=== PATIENT | female | born 1950 | race Caucasian/White ===

== ENCOUNTER → 2016-12-21 | Outpatient (REF) | payer MEDICARE, OTHER ==
[~2016-12-21] MED LIST: /AMIO20TA OR; /GLYB5TA OR; ACET65TA OR; ACTO45TA OR; ALPR0.25 OR; AMOX875T19 PO; ASPI325T OR; ASPI81TA83 OR; ATEN25TA OR; CALCCHW12 OR; COLA100C2 OR; DIOV160T5 OR; DOCUSATE; F; FAMO20TA2 OR; FERR324T5 OR; FISH1000 OR; FLON0.05; FLON0.05 INH; FOLI1TAB OR; GARAMYCIN TOP; GLUC1000 OR; GLUC500T OR; GLUC5TAB PO; ISOS30BRAN OR; JANUVIA PO; LASI40TA MT; LASI80TA OR; OMEP20TA7 OR; PERC5TAB8 OR; PERC7.5T8 OR; PLAV75TA2 OR; SENNA; SIMV80TA OR; SYNT50TA OR; TRAM50TA2 OR; ULTR50TA PO; VITA100C7 OR; ZOFR8TAB OR; ZOFR8TAB PO; ferrous gluconate PO
[2016-12-21 11:01] LABS: MEAN CORPUSCULAR HEMOGLOBIN 31.4 pg (27.0-33.0); MEAN CORPUSCULAR HGB CONC 33.2 g/dl (32.0-36.5); MEAN CORPUSCULAR VOLUME 94.8 fl (80.0-96.0); RED CELL DISTRIBUTION WIDTH 13.3 % (11.5-14.5); WHITE BLOOD COUNT 6.6 K/mm3 (4.0-10.0)
[2016-12-21 11:18] LABS: ALBUMIN 3.6 GM/DL (3.2-5.2); ALBUMIN/GLOBULIN RATIO 1.24 (1.00-1.93); BILIRUBIN,TOTAL 0.4 MG/DL (0.2-1.0); CALCIUM LEVEL 8.7 MG/DL (8.8-10.2); CREATININE FOR GFR 1.43 MG/DL (0.55-1.02); GLOMERULAR FILTRATION RATE 39.2 (>45); POTASSIUM SERUM 4.8 MEQ/L (3.5-5.1); TOTAL PROTEIN 6.5 GM/DL (6.4-8.2)
== END ==
LOC: M LABDRAW1 10:46
PROVIDERS: ATTEND Internal Medicine
DX: E11.9 Type 2 diabetes mellitus without complications (principal); D63.1 Anemia in chronic kidney disease; E78.00 Pure hypercholesterolemia, unspecified; N18.9 Chronic kidney disease, unspecified

== ENCOUNTER → 2016-12-29 | Outpatient (REF) | payer MEDICARE, OTHER ==
[2017-01-01 00:06] LABS: Lyme Disease IgG/IgM Antibodie <0.91 ISR (0.00-0.90); Lyme Disease IgM Ab Quantitati <0.80 index (0.00-0.79)
== END ==
LOC: M SFHCPLAZ 11:15
PROVIDERS: ATTEND Internal Medicine
DX: R70.0 Elevated erythrocyte sedimentation rate (principal); M25.511 Pain in right shoulder; M25.512 Pain in left shoulder
CPT/HCPCS: 36415; 85652; 86140; 86200; 86431; 86617; G0463

== ENCOUNTER → 2017-01-11 | Outpatient (REF) | payer MEDICARE, OTHER | LOC: M SFHCPLAZ 10:33 | PROVIDERS: ATTEND Internal Medicine | DX: R70.0 Elevated erythrocyte sedimentation rate (principal) ==

== ENCOUNTER → 2017-02-01 | Outpatient (REF) | payer MEDICARE, OTHER | LOC: M SFHCPLAZ 10:54 | PROVIDERS: ATTEND Internal Medicine | DX: R70.0 Elevated erythrocyte sedimentation rate (principal) ==

== ENCOUNTER → 2017-02-22 | Outpatient (REF) | payer MEDICARE, OTHER | LOC: M SFHCPLAZ 09:09 | PROVIDERS: ATTEND Internal Medicine | DX: M25.511 Pain in right shoulder (principal) ==

== ENCOUNTER → 2017-03-21 | Outpatient (REF) | payer MEDICARE, OTHER | LOC: M LAB REF 17:36 | PROVIDERS: ATTEND Advanced Practice Midwife | DX: Z12.4 Encounter for screening for malignant neoplasm of cervix (principal) ==

== ENCOUNTER → 2017-04-04 | Outpatient (REF) | payer MEDICARE, OTHER ==
[2017-04-04 11:21] LABS: MEAN CORPUSCULAR HGB CONC 33.2 g/dl (32.0-36.5); MEAN CORPUSCULAR VOLUME 96.5 fl (80.0-96.0); RED CELL DISTRIBUTION WIDTH 14.6 % (11.5-14.5); WHITE BLOOD COUNT 6.9 K/mm3 (4.0-10.0)
[2017-04-04 11:51] LABS: ALBUMIN 3.5 GM/DL (3.2-5.2); ALBUMIN/GLOBULIN RATIO 1.17 (1.00-1.93); ALKALINE PHOSPHATASE 45 U/L (45-117); ALT/SGPT 21 U/L (12-78); ANION GAP 9 MEQ/L (8-16); AST/SGOT 12 U/L (15-37); BILIRUBIN,TOTAL 0.5 MG/DL (0.2-1.0); BLOOD UREA NITROGEN 19 MG/DL (7-18); CALCIUM LEVEL 9.3 MG/DL (8.8-10.2); CARBON DIOXIDE LEVEL 27 MEQ/L (21-32); CHLORIDE LEVEL 104 MEQ/L (98-107); CREATININE FOR GFR 1.24 MG/DL (0.55-1.02); GLOMERULAR FILTRATION RATE 46.2 (>45); GLUCOSE, FASTING 91 MG/DL (80-110); POTASSIUM SERUM 4.6 MEQ/L (3.5-5.1); SODIUM LEVEL 140 MEQ/L (136-145); TOTAL PROTEIN 6.5 GM/DL (6.4-8.2)
[2017-04-07 10:33] LABS: ALBUMIN 3.96 GM/DL (3.29-5.55); ALBUMIN % 60.9 % (55.8-66.1); GAMMA GLOBULIN % 9.5 % (11.1-18.8)
== END ==
LOC: M SFHCPLAZ 09:22
PROVIDERS: ATTEND Internal Medicine
DX: R70.0 Elevated erythrocyte sedimentation rate (principal); E11.3299 Type 2 diabetes mellitus with mild nonproliferative diabetic retinopathy without macular edema, unspecified eye

== ENCOUNTER → 2017-05-13 | Outpatient (CLI) | payer MEDICARE, OTHER ==
--- NOTE | 2017-05-19 13:32 | SLEEPHOME ---
DATE OF PROCEDURE: 05/13/2017 ORDERED BY: Jane Anguiano NP Diagnostic home sleep testing was performed due to concern for the obstructive sleep apnea syndrome in this patient with a history of snoring, abnormal nocturnal oximetry and morning headaches. For testing, a NOX-T3 respiratory monitoring device was used. Continuous record was made of pulse, oxygen saturation, airflow, chest and abdominal strain, and body position. 10 hours and 59 minutes of data were reviewed. There were 9 hours and 21 minutes marked as time in bed. During the interval marked time in bed, there were 636 respiratory events identified of 10 seconds in duration or greater for a respiratory event index of 67.9. The events were mixed in character, both obstructive and central events when combining mixed apneas with central apneas were greater than 50% of the events. The patient's baseline pulse rate was 55 beats per minute. Pulse rate ranged 36-72. Baseline saturation 94%. Lowest oxygen saturation 75%. Testing was performed in both the supine and non-supine positions. IMPRESSION: Abnormal home sleep testing with repetitive respiratory events and oxygen desaturations to 75% is consistent with the sleep apnea syndrome. RECOMMENDATION: Given the frequency of central events, complex apnea suspected. The patient should therefore be referred for a formal in-laboratory pressure titration. In the interim, alcohol and sedative avoidance should be practiced and caution exercised during the operation of motor vehicles.
== END ==
LOC: M SLEEP HO 09:43
PROVIDERS: ATTEND Nurse Practitioner Adult Health
DX: G47.30 Sleep apnea, unspecified (principal)

== ENCOUNTER → 2017-06-01 | Outpatient (CLI) | payer MEDICARE, OTHER ==
--- NOTE | 2017-06-05 14:38 | SLEEPCENT ---
DATE OF STUDY: 06/01/2017 ORDERED BY: Jane Anguiano NP Nocturnal polysomnography was performed for the titration of pressure therapy in this patient with a clinical diagnosis of obstructive sleep apnea syndrome supported by home testing revealing a respiratory event index of 67.9. For testing, the patient was fit with a [employer] Sim[employer] full face mask of small size. 4 cm of water pressure were applied to the circuit and the lights were extinguished. 7 hours and 44 minutes of data were reviewed. There were 362 minutes of sleep identified. Sleep latency was prolonged at 23 minutes. Rapid eye movement (REM) latency was short at 75 minutes. Sleep architecture was good with three REM periods. Overall sleep efficiency was 78.9%. The patient's EKG showed a sinus rhythm with an average heart rate of 50 beats per minute. EEG showed fairly normal waveforms for awake and sleep. Respiratory events were fully palliated with CPAP at a pressure of +11. Remaining measures of sleep physiology were normal. IMPRESSION: Obstructive sleep apnea syndrome (G47.33). RECOMMENDATION: Nightly use of pressure therapy, 11 cm of water.
== END ==
LOC: M SLEEP 19:25
PROVIDERS: ATTEND Nurse Practitioner Adult Health
DX: G47.33 Obstructive sleep apnea (adult) (pediatric) (principal)

== ENCOUNTER → 2017-09-07 | Outpatient (CLI) | payer MEDICARE, OTHER ==
--- NOTE | 2017-09-07 12:01 | REPMRS ---
Patient History The patient states she has not had a clinical breast exam in over a year. Patient is postmenopausal. No known family history of cancer. Took hormonal contraceptives for 10 years. Took unspecified hormones for 10 years. Digital Woman Screen Mammo: September 07, 2017 - Exam #: [id number] Bilateral CC and MLO view(s) were taken. Technologist: Gabriela Canchola Technologist Prior study comparison: August 21, 2015, digital woman screen mammo performed at [facility]. August 23, 2014, bilateral bilat screen digital mammo, performed at [facility] ([facility]). July 20, 2013, bilateral bilat screen digital mammo, performed at [facility] ([facility]). FINDINGS: There are scattered fibroglandular densities. There has been no change in the appearance of the mammogram from the prior studies. There is a moderate amount of residual fibroglandular tissue which is fairly symmetric. There is no interval development of dominant mass, architectural distortion, or clustered microcalcification suggestive of malignancy. Large coarse benign appearing calcifications are present. No significant changes when compared with prior studies. ASSESSMENT: BI-RADS/ACR category 2 mammogram. Benign finding(s). Recommendation Routine screening mammogram in 1 year (for women over age 40). This mammogram was interpreted with the aid of an FDA-approved computer-aided dectection system. A. Negative x-ray reports should not delay biopsy if a dominant or clinically suspicious mass is present. B. Four to eight percent of cancers are not identified by mammography. C. Adenosis and dense breast may obscure an underlying neoplasm. Electronically Signed By: Jefry El MD 09/07/17 [id number]
== END ==
LOC: M WHC 10:44
PROVIDERS: ATTEND Internal Medicine
DX: Z12.31 Encounter for screening mammogram for malignant neoplasm of breast (principal); Z78.0 Asymptomatic menopausal state; Z92.0 Personal history of contraception

== ENCOUNTER → 2017-12-06 | Outpatient (REF) | payer MEDICARE, OTHER ==
[2017-12-06 11:09] LABS: HEMATOCRIT 25.2 % (36.0-47.0); HEMOGLOBIN 8.2 g/dl (12.0-16.0); MEAN CORPUSCULAR HEMOGLOBIN 29.4 pg (27.0-33.0); MEAN CORPUSCULAR HGB CONC 32.5 g/dl (32.0-36.5); MEAN CORPUSCULAR VOLUME 90.3 fl (80.0-96.0); PLATELET COUNT, AUTOMATED 418 10^3/uL (150-450); RED BLOOD COUNT 2.79 10^6/uL (4.00-5.40); RED CELL DISTRIBUTION WIDTH 14.1 % (11.5-14.5); WHITE BLOOD COUNT 8.1 10^3/uL (4.0-10.0)
[2017-12-06 11:24] LABS: ALBUMIN 3.3 GM/DL (3.2-5.2); ALBUMIN/GLOBULIN RATIO 0.97 (1.00-1.93); ALKALINE PHOSPHATASE 83 U/L (45-117); ALT/SGPT 21 U/L (12-78); ANION GAP 10 MEQ/L (8-16); AST/SGOT 11 U/L (7-37); BILIRUBIN,TOTAL 0.3 MG/DL (0.2-1.0); BLOOD UREA NITROGEN 24 MG/DL (7-18); CALCIUM LEVEL 8.9 MG/DL (8.8-10.2); CARBON DIOXIDE LEVEL 26 MEQ/L (21-32); CHLORIDE LEVEL 104 MEQ/L (98-107); CHOLESTEROL LEVEL 140 MG/DL (<200); CHOLESTEROL RISK RATIO 5.384 (<5); CREATININE FOR GFR 1.43 MG/DL (0.55-1.30); GLOMERULAR FILTRATION RATE 39.1 (>45); GLUCOSE, FASTING 190 MG/DL (70-100); HDL CHOLESTEROL 26 MG/DL (>40); LDL CHOLESTEROL 80.4 MG/DL (<100); MAGNESIUM LEVEL 1.7 MG/DL (1.8-2.4); NON-HDL-C 114 MG/DL; POTASSIUM SERUM 4.8 MEQ/L (3.5-5.1); SODIUM LEVEL 140 MEQ/L (136-145); TOTAL PROTEIN 6.7 GM/DL (6.4-8.2); TRIGLYCERIDES LEVEL 168 MG/DL (<150)
[2017-12-06 11:31] LABS: ESTIMATED AVERAGE GLUCOSE 140 MG/DL (60-110); HEMOGLOBIN A1c 6.5 %
[2017-12-06 11:33] LABS: MAU/CREAT RATIO 73.5 MCG/MG (0.0-30.0)
[2017-12-06 11:47] LABS: PTH INTACT 97.4 PG/ML (18.5-88.0)
== END ==
LOC: M SFHCPLAZ 08:46
DX: E11.3299 Type 2 diabetes mellitus with mild nonproliferative diabetic retinopathy without macular edema, unspecified eye (principal); N18.3 Chronic kidney disease, stage 3 (moderate); E78.00 Pure hypercholesterolemia, unspecified; I12.9 Hypertensive chronic kidney disease with stage 1 through stage 4 chronic kidney disease, or unspecified chronic kidney disease; D63.1 Anemia in chronic kidney disease
CPT/HCPCS: 83735

== ENCOUNTER → 2018-02-08 | Outpatient (REF) | payer MEDICARE, OTHER ==
[2018-02-08 12:02] LABS: BASO % 0.3 % (0.0-1.0); EOS # 0.1 10^3/uL (0.0-0.50); EOS % 1.9 % (0.0-3.0); HEMOGLOBIN 9.2 g/dl (12.0-15.5); IMMATURE GRANULOCYTE % 0.3 % (0-3.0); LYMPH # 1.7 10^3/uL (1.5-4.5); LYMPH % 23.2 % (24.0-44.0); MEAN CORPUSCULAR HEMOGLOBIN 30.1 pg (27.0-33.0); MEAN CORPUSCULAR HGB CONC 32.9 g/dl (32.0-36.5); MEAN CORPUSCULAR VOLUME 91.5 fl (80.0-96.0); MONO # 0.6 10^3/uL (0.0-0.8); MONO % 8.4 % (0.0-5.0); NEUTROPHILS # 4.8 10^3/uL (1.8-7.7); NEUTROPHILS % 65.9 % (36.0-66.0); PLATELET COUNT, AUTOMATED 333 10^3/uL (150-450); RED BLOOD COUNT 3.06 10^6/uL (4.00-5.40); WHITE BLOOD COUNT 7.3 10^3/uL (4.0-10.0)
[2018-02-08 12:16] LABS: C REACTIVE PROTEIN QUANTITATIV < 0.30 MG/DL (0.00-0.30)
[2018-02-08 12:16] LABS: RHEUMATOID FACTOR QUANT 10.2 IU/ML (<15.0)
[2018-02-08 12:38] LABS: ERYTHROCYTE SEDIMENTATION RATE 60 mm/hr (0-30)
[2018-02-10 00:09] LABS: ANTINUCLEAR ANTIBODIES DIRECT Negative (Negative); Lyme Disease IgG/IgM Antibodie <0.91 ISR (0.00-0.90); Lyme Disease IgM Ab Quantitati <0.80 index (0.00-0.79)
== END ==
LOC: M LABDRAW1 10:10
DX: M70.61 Trochanteric bursitis, right hip (principal)
CPT/HCPCS: 86140

== ENCOUNTER → 2018-03-23 | Outpatient (REF) | payer MEDICARE, OTHER ==
[2018-03-23 12:36] LABS: ERYTHROCYTE SEDIMENTATION RATE 43 mm/hr (0-30)
== END ==
LOC: M LABDRAW1 11:31
DX: M70.61 Trochanteric bursitis, right hip (principal)
CPT/HCPCS: 36415

== ENCOUNTER → 2018-03-27 | Outpatient (REF) | payer MEDICARE, OTHER ==
[2018-03-27 13:17] LABS: FERRITIN 30 NG/ML (8-252); IRON (FE) 44 UG/DL (50-170); PERCENT SATURATION 12.6 % (13.2-45.0); TOTAL IRON BINDING CAPACITY 350 UG/DL (250-450)
== END ==
LOC: M LABDRAW1 08:35
DX: N18.9 Chronic kidney disease, unspecified (principal); D63.1 Anemia in chronic kidney disease
CPT/HCPCS: 83550

== ENCOUNTER → 2018-04-17 | Outpatient (REF) | payer MEDICARE, OTHER ==
[2018-04-17 11:38] LABS: HEMATOCRIT 26.7 % (36.0-47.0); HEMOGLOBIN 8.9 g/dl (12.0-15.5); MEAN CORPUSCULAR HEMOGLOBIN 30.6 pg (27.0-33.0); MEAN CORPUSCULAR HGB CONC 33.3 g/dl (32.0-36.5); MEAN CORPUSCULAR VOLUME 91.8 fl (80.0-96.0); PLATELET COUNT, AUTOMATED 304 10^3/uL (150-450); RED BLOOD COUNT 2.91 10^6/uL (4.00-5.40); WHITE BLOOD COUNT 6.8 10^3/uL (4.0-10.0)
== END ==
LOC: M LABDRAW1 09:05
DX: N18.3 Chronic kidney disease, stage 3 (moderate) (principal); D63.1 Anemia in chronic kidney disease
CPT/HCPCS: 85027

== ENCOUNTER → 2018-06-09 | Outpatient (REF) | payer MEDICARE, OTHER ==
[2018-06-09 11:00] LABS: HEMATOCRIT 27.2 % (36.0-47.0); HEMOGLOBIN 9.3 g/dl (12.0-15.5); MEAN CORPUSCULAR HGB CONC 34.2 g/dl (32.0-36.5); MEAN CORPUSCULAR VOLUME 90.7 fl (80.0-96.0); PLATELET COUNT, AUTOMATED 319 10^3/uL (150-450); RED CELL DISTRIBUTION WIDTH 14.4 % (11.5-14.5); WHITE BLOOD COUNT 7.9 10^3/uL (4.0-10.0)
[2018-06-09 11:24] LABS: PTH INTACT 59.8 PG/ML (18.5-88.0)
[2018-06-09 11:30] LABS: ESTIMATED AVERAGE GLUCOSE 131 MG/DL (60-110); HEMOGLOBIN A1c 6.2 %
[2018-06-09 11:50] LABS: ALBUMIN 3.6 GM/DL (3.2-5.2); ALBUMIN/GLOBULIN RATIO 1.13 (1.00-1.93); ALKALINE PHOSPHATASE 55 U/L (45-117); ALT/SGPT 20 U/L (12-78); ANION GAP 10 MEQ/L (8-16); AST/SGOT 14 U/L (7-37); BILIRUBIN,TOTAL 0.5 MG/DL (0.2-1.0); BLOOD UREA NITROGEN 20 MG/DL (7-18); C REACTIVE PROTEIN QUANTITATIV < 0.30 MG/DL (0.00-0.30); CALCIUM LEVEL 8.8 MG/DL (8.8-10.2); CARBON DIOXIDE LEVEL 23 MEQ/L (21-32); CHLORIDE LEVEL 106 MEQ/L (98-107); CREATININE FOR GFR 1.34 MG/DL (0.55-1.30); GLUCOSE, FASTING 98 MG/DL (70-100); POTASSIUM SERUM 4.8 MEQ/L (3.5-5.1); SODIUM LEVEL 139 MEQ/L (136-145); TOTAL PROTEIN 6.8 GM/DL (6.4-8.2)
== END ==
LOC: M SFHCPLAZ 08:22
DX: Z51.81 Encounter for therapeutic drug level monitoring (principal); Z79.899 Other long term (current) drug therapy; G47.33 Obstructive sleep apnea (adult) (pediatric); E11.3299 Type 2 diabetes mellitus with mild nonproliferative diabetic retinopathy without macular edema, unspecified eye; E03.9 Hypothyroidism, unspecified; R70.0 Elevated erythrocyte sedimentation rate; N18.3 Chronic kidney disease, stage 3 (moderate)
CPT/HCPCS: 84443

== ENCOUNTER → 2018-10-12 | Outpatient (CLI) | payer MEDICARE, OTHER ==
--- NOTE | 2018-10-12 10:37 | REPMRS ---
Patient History The patient states she has not had a clinical breast exam in over a year. No known family history of cancer. Took hormonal contraceptives for 10 years. Took unspecified hormones for 10 years. Digital Woman Screen Mammo: October 12, 2018 - Exam #: [id number] Bilateral CC and MLO view(s) were taken. Technologist: Janki Burgess, Technologist Prior study comparison: September 07, 2017, digital woman screen mammo performed at [facility]. August 21, 2015, digital woman screen mammo performed at [facility]. August 23, 2014, bilateral bilat screen digital mammo, performed at [facility] ([facility] FINDINGS: There are scattered fibroglandular densities. There is a moderate amount of residual fibroglandular tissue which is fairly symmetric. There is no interval development of dominant mass, architectural distortion, or clustered microcalcification typical of malignancy. There has been no change in the appearance of the mammogram from the prior studies. 3-D tomosynthesis shows no additional findings. Assessment: BI-RADS/ACR category 1 mammogram. Negative. Recommendation Routine screening mammogram of both breasts in 1 year (for women over age 40). This patient's Lifetime Breast Cancer RIsk is estimated at 3.0 %. This mammogram was interpreted with the aid of an FDA-approved computer-aided dectection system. Electronically Signed By: Aguila Gillette MD 10/12/18 [id number]
== END ==
LOC: M WHC 10:02
PROVIDERS: ATTEND Internal Medicine
DX: Z12.31 Encounter for screening mammogram for malignant neoplasm of breast (principal); Z92.0 Personal history of contraception; Z92.29 Personal history of other drug therapy

== ENCOUNTER → 2018-10-17 | Outpatient (REF) | payer MEDICARE, OTHER ==
[2018-10-17 11:42] LABS: HEMATOCRIT 29.2 % (36.0-47.0); HEMOGLOBIN 9.4 g/dl (12.0-15.5); MEAN CORPUSCULAR HEMOGLOBIN 30.7 pg (27.0-33.0); MEAN CORPUSCULAR HGB CONC 32.2 g/dl (32.0-36.5); MEAN CORPUSCULAR VOLUME 95.4 fl (80.0-96.0); PLATELET COUNT, AUTOMATED 329 10^3/uL (150-450); RED BLOOD COUNT 3.06 10^6/uL (4.00-5.40); WHITE BLOOD COUNT 7.4 10^3/uL (4.0-10.0)
[2018-10-17 12:17] LABS: ALBUMIN 3.4 GM/DL (3.2-5.2); BILIRUBIN,TOTAL 0.3 MG/DL (0.2-1.0); CALCIUM LEVEL 8.7 MG/DL (8.8-10.2); CHOLESTEROL RISK RATIO 5.636 (<5); CREATININE FOR GFR 1.84 MG/DL (0.55-1.30); GLOMERULAR FILTRATION RATE 29.1 (>45); MAGNESIUM LEVEL 2.1 MG/DL (1.8-2.4); POTASSIUM SERUM 5.1 MEQ/L (3.5-5.1); TOTAL PROTEIN 6.5 GM/DL (6.4-8.2)
[2018-10-17 13:42] LABS: HEMOGLOBIN A1c 6.7 %
== END ==
LOC: M SFHCPLAZ 07:55
PROVIDERS: ATTEND Internal Medicine
DX: E11.3299 Type 2 diabetes mellitus with mild nonproliferative diabetic retinopathy without macular edema, unspecified eye (principal); E78.00 Pure hypercholesterolemia, unspecified; I12.9 Hypertensive chronic kidney disease with stage 1 through stage 4 chronic kidney disease, or unspecified chronic kidney disease; N18.3 Chronic kidney disease, stage 3 (moderate); D63.1 Anemia in chronic kidney disease

== ENCOUNTER → 2018-10-30 | Outpatient (REF) | payer MEDICARE, OTHER ==
[2018-10-30 20:13] LABS: APPEARANCE, URINE TURBID (CLEAR); BACTERIA, URINE AUTO 1+ (NEGATIVE); BILIRUBIN, URINE AUTO NEGATIVE (NEGATIVE); BLOOD, URINE BLOOD 3+ (NEGATIVE); COLOR, URINE YELLOW (YELLOW); GLUCOSE, URINE (UA) AUTO NEGATIVE (NEGATIVE); KETONE, URINE AUTO NEGATIVE (NEGATIVE); LEUKOCYTE ESTERASE, URINE AUTO 2+ (NEGATIVE); NITRITE, URINE AUTO POSITIVE (NEGATIVE); PROTEIN, URINE AUTO 2+ mg/dL (NEGATIVE); RBC, URINE AUTO TNTC /HPF (0-3); SQUAMOUS EPITHELIAL CELL UR AU 0 /HPF (0-6); UROBILINOGEN, URINE AUTO 0.2 mg/dL (0.0-2.0); WBC, URINE AUTO TNTC /HPF (0-3)
== END ==
LOC: M SFHCPLAZ 15:01
PROVIDERS: ATTEND Internal Medicine
DX: R30.0 Dysuria (principal)

== ENCOUNTER → 2019-01-03 | Outpatient (CLI) | payer MEDICARE, OTHER ==
[~2019-01-03] MED LIST changes: -/AMIO20TA OR; -/GLYB5TA OR; +AMIO1TAB OR; +GLYB1TAB29 OR; +ONDA-227 OR; +ONDA-227 PO; -ZOFR8TAB OR; -ZOFR8TAB PO
[2019-01-03 10:43] LABS: CREATININE FOR GFR 1.63 MG/DL (0.55-1.30); GLOMERULAR FILTRATION RATE 33.5 (>45)
== END ==
LOC: M LAB 09:53
PROVIDERS: ATTEND Surgery
DX: D48.7 Neoplasm of uncertain behavior of other specified sites (principal)

== ENCOUNTER → 2019-01-08 | Outpatient (CLI) | payer MEDICARE, OTHER ==
[~2019-01-08] MED LIST changes: +PROHANCE 279.3MG/ML 15ML VIAL (A9576) As Ordered ONE
--- NOTE | 2019-01-08 13:35 | REP ---
MRI RIGHT HIP WITHOUT AND WITH IV CONTRAST: HISTORY: Neoplasm of uncertain behavior. Right hip pain. Difficulty climbing and descending stairs and getting in and out of vehicle. Comparison MRI study of the right hip is from May 30, 2018. GADOLINIUM ENHANCEMENT DOSE: Half-dose protocol. 8 mL of intravenous ProHance. MR TECHNIQUE: Axial coronal and sagittal imaging planes utilized. T1- and T2-weighted scans were obtained in the usual fashion with and without fat saturation. MRI FINDINGS: Cortical and medullary bone signal intensity are normal in the proximal femurs bilaterally. There is no evidence of avascular necrosis. No significant hip joint effusion is seen on either side. No juxta-articular fluid or bursal fluid collection is seen. Bone signal intensity is normal in the bony pelvic ring. There is minimal bilateral superior acetabular spurring and some early degenerative changes are seen in the superior acetabular labral cartilage and bilaterally. There is an area of abnormal signal intensity in the soft tissues posterior and lateral to the greater trochanter of the right proximal femur unchanged from the prior study. There appear to be foci of fat signal intensity within the lesion. The lesion shows a low T1 and high T2 signal intensity otherwise. It has somewhat ill-defined margins. The lesion is predominantly in the subcutaneous fat layer but extends to the lateral insertion of the gluteus halina muscle. It is 2.4 x 3.5 cm in anteroposterior by medial to lateral dimension. This is quite similar perhaps slightly larger than on May 30, 2018. Postcontrast images show a predominantly peripheral pattern of gadolinium enhancement around the edges of the heterogeneous lesion. IMPRESSION: Subcutaneous mass posterior and lateral to the greater trochanter of the right hip. Location and features suggest the possibility of post-traumatic fat necrosis. Nonspecific MR appearance. Only slightly larger than on May 30, 2018. Electronically Signed by Raimundo Gillette MD 01/08/2019 05:34 P
== END ==
LOC: M RAD 09:53
PROVIDERS: ATTEND Surgery
DX: R22.41 Localized swelling, mass and lump, right lower limb (principal)
CPT/HCPCS: 73721; A9576

== ENCOUNTER → 2019-01-24 | Outpatient (CLI) | payer MEDICARE, OTHER ==
[~2019-01-24] MED LIST changes: +LIDOCAINE 1% MDV 20ML VIAL As Ordered ONE; -PROHANCE 279.3MG/ML 15ML VIAL (A9576) As Ordered ONE
--- NOTE | 2019-01-24 16:42 | REP ---
Ultrasound guided a soft tissue mass biopsy. This procedure is performed by AMINATA Crystal, under the personal supervision of Dr. Long. The risks and benefits of the procedure were explained to the patient and informed consent was obtained both verbally and written. Directly prior to the start of the procedure, a formal time a was completed in the procedure room. Ultrasound of the right hip shows a complex mass measuring 2.9 cm x 2.1 cm. Using ultrasound this area was localized, the skin was prepped and draped in a sterile fashion. 3 ml of 1% lidocaine was used as a local anesthetic. Using ultrasound guidance and 19/20 gauge coaxial needle biopsy system was inserted and advanced into the mass. Four core biopsy samples were then obtained and sent to the lab. The patient tolerated the procedure well and there were no immediate complications, and the patient was discharged home. Impression: 1. Uncomplicated ultrasound-guided biopsy of right hip soft tissue mass. Reviewed by AMINATA Crystal 01/24/2019 01:33 P Electronically Signed by Linus Long MD 01/24/2019 04:33 P
== END ==
LOC: M RADPRO 09:14
PROVIDERS: ATTEND Surgery
DX: M79.89 Other specified soft tissue disorders (principal)

== ENCOUNTER → 2019-01-29 | Outpatient (REF) | payer MEDICARE, OTHER ==
[~2019-01-29] MED LIST changes: -LIDOCAINE 1% MDV 20ML VIAL As Ordered ONE
[2019-01-29 12:02] LABS: HEMATOCRIT 28.2 % (36.0-47.0); HEMOGLOBIN 9.1 g/dl (12.0-15.5); MEAN CORPUSCULAR HEMOGLOBIN 30.6 pg (27.0-33.0); MEAN CORPUSCULAR HGB CONC 32.3 g/dl (32.0-36.5); MEAN CORPUSCULAR VOLUME 94.9 fl (80.0-96.0); PLATELET COUNT, AUTOMATED 336 10^3/uL (150-450); RED BLOOD COUNT 2.97 10^6/uL (4.00-5.40); WHITE BLOOD COUNT 9.5 10^3/uL (4.0-10.0)
[2019-01-29 12:17] LABS: ALBUMIN 3.4 GM/DL (3.2-5.2); ALT/SGPT 16 U/L (12-78); BILIRUBIN,TOTAL 0.4 MG/DL (0.2-1.0); BLOOD UREA NITROGEN 32 MG/DL (7-18); C REACTIVE PROTEIN QUANTITATIV < 0.30 MG/DL (0.00-0.30); CALCIUM LEVEL 8.7 MG/DL (8.8-10.2); CARBON DIOXIDE LEVEL 23 MEQ/L (21-32); CHLORIDE LEVEL 113 MEQ/L (98-107); CHOLESTEROL LEVEL 159 MG/DL (<200); CHOLESTEROL RISK RATIO 4.968 (<5); CREATININE FOR GFR 1.57 MG/DL (0.55-1.30); GLUCOSE, FASTING 150 MG/DL (70-100); HDL CHOLESTEROL 32 MG/DL (>40); LDL CHOLESTEROL 81 MG/DL (<100); NON-HDL-C 127 MG/DL; POTASSIUM SERUM 5.1 MEQ/L (3.5-5.1); PTH INTACT 60.7 PG/ML (18.5-88.0); SODIUM LEVEL 141 MEQ/L (136-145); TOTAL 25(OH) VITAMIN D 36.1 NG/ML (30.0-100.0); TOTAL PROTEIN 6.7 GM/DL (6.4-8.2); TRIGLYCERIDES LEVEL 229 MG/DL (<150); VITAMIN B12 LEVEL 415 PG/ML (247-911)
[2019-01-29 12:38] LABS: HEMOGLOBIN A1c 7.1 %
[2019-01-29 12:53] LABS: MALB URINE SIEMENS 61.1 MG/L; MAU/CREAT RATIO 53.1 MCG/MG (0.0-30.0)
[2019-01-29 13:00] LABS: ERYTHROCYTE SEDIMENTATION RATE 90 mm/hr (0-30)
== END ==
LOC: M SFHCPLAZ 08:28
PROVIDERS: ATTEND Internal Medicine
DX: E11.3299 Type 2 diabetes mellitus with mild nonproliferative diabetic retinopathy without macular edema, unspecified eye (principal); E03.9 Hypothyroidism, unspecified; R70.0 Elevated erythrocyte sedimentation rate; G47.33 Obstructive sleep apnea (adult) (pediatric); E78.00 Pure hypercholesterolemia, unspecified; N18.3 Chronic kidney disease, stage 3 (moderate); D51.8 Other vitamin B12 deficiency anemias; D63.1 Anemia in chronic kidney disease

== ENCOUNTER → 2019-03-14 | Outpatient (REF) | payer MEDICARE, OTHER ==
[2019-03-14 10:09] LABS: C REACTIVE PROTEIN QUANTITATIV 0.32 MG/DL (0.00-0.30); CALCIUM LEVEL 9.1 MG/DL (8.8-10.2); CREATININE FOR GFR 1.46 MG/DL (0.55-1.30); POTASSIUM SERUM 4.2 MEQ/L (3.5-5.1)
== END ==
LOC: M SFHCPLAZ 08:24
PROVIDERS: ATTEND Internal Medicine
DX: R70.0 Elevated erythrocyte sedimentation rate (principal); N18.3 Chronic kidney disease, stage 3 (moderate)

== ENCOUNTER → 2019-04-23 | Outpatient (REF) | payer MEDICARE, OTHER ==
[2019-04-25 14:07] LABS: HPV HYBRID CAPTURE II Negative (Negative)
== END ==
LOC: M LAB REF 13:05
PROVIDERS: ATTEND Advanced Practice Midwife
DX: Z12.4 Encounter for screening for malignant neoplasm of cervix (principal)
CPT/HCPCS: 87624; G0123

== ENCOUNTER → 2019-05-17 | Outpatient (REF) | payer MEDICARE, OTHER ==
[2019-05-17 11:02] LABS: HEMATOCRIT 30.6 % (36.0-47.0); HEMOGLOBIN 9.9 g/dl (12.0-15.5); MEAN CORPUSCULAR HEMOGLOBIN 31.6 pg (27.0-33.0); MEAN CORPUSCULAR HGB CONC 32.4 g/dl (32.0-36.5); MEAN CORPUSCULAR VOLUME 97.8 fl (80.0-96.0); PLATELET COUNT, AUTOMATED 363 10^3/uL (150-450); RED BLOOD COUNT 3.13 10^6/uL (4.00-5.40); WHITE BLOOD COUNT 6.7 10^3/uL (4.0-10.0)
[2019-05-17 11:32] LABS: ERYTHROCYTE SEDIMENTATION RATE 73 mm/hr (0-30)
[2019-05-17 11:34] LABS: ALBUMIN 3.6 GM/DL (3.2-5.2); BILIRUBIN,TOTAL 0.4 MG/DL (0.2-1.0); C REACTIVE PROTEIN QUANTITATIV 0.75 MG/DL (0.00-0.30); CALCIUM LEVEL 9.2 MG/DL (8.8-10.2); CHOLESTEROL RISK RATIO 4.945 (<5); CREATININE FOR GFR 1.59 MG/DL (0.55-1.30); GLOMERULAR FILTRATION RATE 34.5 (>45); POTASSIUM SERUM 4.7 MEQ/L (3.5-5.1); TOTAL PROTEIN 6.7 GM/DL (6.4-8.2)
[2019-05-17 12:14] LABS: HEMOGLOBIN A1c 8.9 %
[2019-05-17 13:21] LABS: CREATININE, URINE 92.9 MG/DL; MAU/CREAT RATIO 158.2 MCG/MG (0.0-30.0)
== END ==
LOC: M SFHCPLAZ 08:18
PROVIDERS: ATTEND Internal Medicine
DX: I12.9 Hypertensive chronic kidney disease with stage 1 through stage 4 chronic kidney disease, or unspecified chronic kidney disease (principal); R70.0 Elevated erythrocyte sedimentation rate; E11.3299 Type 2 diabetes mellitus with mild nonproliferative diabetic retinopathy without macular edema, unspecified eye; N18.9 Chronic kidney disease, unspecified; D63.1 Anemia in chronic kidney disease

== ENCOUNTER → 2019-06-06 | Outpatient (CLI) | payer MEDICARE, OTHER ==
--- NOTE | 2019-06-06 13:28 | PFTRPT ---
Height: 67.00 Inches Weight: 200.00 Lbs BSA: 2.02 Diagnosis: R06 DATE OF PROCEDURE: 06/06/2019 ORDERED BY: Dr. Anil Tian Spirometry: Excellent technical quality. Forced vital capacity minimally reduced. FEV1 in proportion. Obstructive index is, therefore, normal. Flow Volume Loop: Expiratory limb of the flow volume loop suggests some nonspecific flow rate limitation. Lung Volumes: Total lung capacity normal. Residual volume in proportion. Diffusing Capacity: Diffusing capacity significantly reduced but is appropriate for alveolar volume. Hemoglobin: No hemoglobin available for correction. Airway Mechanics: Airway resistance and conductance are normal. IMPRESSION: Nonspecific flow rate limitation with decreased diffusing capacity. Clinical correlation will be necessary. [facility]
== END ==
LOC: M CARPUL 12:43
PROVIDERS: ATTEND Internal Medicine
DX: R06.09 Other forms of dyspnea (principal)

== ENCOUNTER → 2019-06-30 | Outpatient (REF) | payer MEDICARE, OTHER | LOC: M LAB REF 15:06 | PROVIDERS: ATTEND Physician Assistant | DX: N39.0 Urinary tract infection, site not specified (principal) ==

== ENCOUNTER → 2019-08-28 | Outpatient (CLI) | payer MEDICARE, OTHER ==
[2019-08-28 14:08] LABS: HEMATOCRIT 31.2 % (36.0-47.0); HEMOGLOBIN 10.2 g/dl (12.0-15.5); MEAN CORPUSCULAR HEMOGLOBIN 30.6 pg (27.0-33.0); MEAN CORPUSCULAR HGB CONC 32.7 g/dl (32.0-36.5); MEAN CORPUSCULAR VOLUME 93.7 fl (80.0-96.0); PLATELET COUNT, AUTOMATED 314 10^3/uL (150-450); RED BLOOD COUNT 3.33 10^6/uL (4.00-5.40)
[2019-08-28 14:16] LABS: ALT/SGPT 24 U/L (12-78); BILIRUBIN,TOTAL 0.5 MG/DL (0.2-1.0); BLOOD UREA NITROGEN 33 MG/DL (7-18); C REACTIVE PROTEIN QUANTITATIV < 0.30 MG/DL (0.00-0.30); CALCIUM LEVEL 9.1 MG/DL (8.8-10.2); CARBON DIOXIDE LEVEL 24 MEQ/L (21-32); CHLORIDE LEVEL 105 MEQ/L (98-107); CHOLESTEROL LEVEL 204 MG/DL (<200); CREATININE FOR GFR 2.03 MG/DL (0.55-1.30); GLOMERULAR FILTRATION RATE 25.9 (>45); GLUCOSE, FASTING 168 MG/DL (70-100); HDL CHOLESTEROL 39 MG/DL (>40); LDL CHOLESTEROL 120 MG/DL (<100); MAGNESIUM LEVEL 1.8 MG/DL (1.8-2.4); NON-HDL-C 165 MG/DL; POTASSIUM SERUM 4.7 MEQ/L (3.5-5.1); SODIUM LEVEL 137 MEQ/L (136-145); TOTAL PROTEIN 7.4 GM/DL (6.4-8.2); TRIGLYCERIDES LEVEL 223 MG/DL (<150)
[2019-08-28 14:41] LABS: ERYTHROCYTE SEDIMENTATION RATE 61 mm/hr (0-30)
[2019-08-28 14:54] LABS: HEMOGLOBIN A1c 7.6 %
== END ==
LOC: M PLALAB 08:23
PROVIDERS: ATTEND Internal Medicine
DX: I12.9 Hypertensive chronic kidney disease with stage 1 through stage 4 chronic kidney disease, or unspecified chronic kidney disease (principal); R70.0 Elevated erythrocyte sedimentation rate; E11.3299 Type 2 diabetes mellitus with mild nonproliferative diabetic retinopathy without macular edema, unspecified eye; Z79.82 Long term (current) use of aspirin; Z79.899 Other long term (current) drug therapy

== ENCOUNTER → 2019-08-29 | Outpatient (REF) | payer MEDICARE, OTHER ==
[2019-08-29 18:07] LABS: CREATININE, URINE 94.1 MG/DL; MALB URINE SIEMENS 60.1 MG/L; MAU/CREAT RATIO 63.8 MCG/MG (0.0-30.0)
== END ==
LOC: M SFHCPLAZ 16:50
PROVIDERS: ATTEND Internal Medicine
DX: E11.3299 Type 2 diabetes mellitus with mild nonproliferative diabetic retinopathy without macular edema, unspecified eye (principal); I12.9 Hypertensive chronic kidney disease with stage 1 through stage 4 chronic kidney disease, or unspecified chronic kidney disease; R70.0 Elevated erythrocyte sedimentation rate; D63.1 Anemia in chronic kidney disease

== ENCOUNTER → 2019-10-18 | Outpatient (CLI) | payer MEDICARE, OTHER ==
--- NOTE | 2019-10-18 14:26 | REPMRS ---
Patient History The patient states she has not had a clinical breast exam in over a year. No known family history of cancer. Took hormonal contraceptives for 10 years. Took unspecified hormones for 10 years. Digital Woman Screen Mammo: October 18, 2019 - Exam #: [id number] Bilateral CC and MLO view(s) were taken. Technologist: Lilly Arellano, Technologist Prior study comparison: October 12, 2018, bilateral digital woman screen mammo performed at [facility]. September 07, 2017, digital woman screen mammo performed at [facility]. August 21, 2015, digital woman screen mammo performed at [facility]. FINDINGS: There are scattered fibroglandular densities. There has been no change in the appearance of the mammogram from the prior studies. There is a mild amount of scattered fibroglandular density which is fairly symmetric. There is no interval development of dominant mass, architectural distortion, or grouped microcalcification suggestive of malignancy. 3-D tomosynthesis shows no additional findings. Assessment: BI-RADS/ACR category 1 mammogram. Negative Mammogram. Recommendation Routine screening mammogram of both breasts in 1 year (for women over age 40). This patient's Lifetime Breast Cancer Risk is estimated at 2.9 %. This mammogram was interpreted with the aid of an FDA-approved computer-aided dectection system. Electronically Signed By: Aguila Gillette MD 10/18/19 2030
== END ==
LOC: M WHC 12:12
PROVIDERS: ATTEND Internal Medicine
DX: Z12.31 Encounter for screening mammogram for malignant neoplasm of breast (principal); Z92.0 Personal history of contraception; Z92.29 Personal history of other drug therapy

== ENCOUNTER → 2019-11-27 | Outpatient (CLI) | payer MEDICARE, OTHER ==
[2019-11-27 10:18] LABS: ALBUMIN 3.7 GM/DL (3.2-5.2); ALT/SGPT 20 U/L (12-78); BILIRUBIN,TOTAL 0.4 MG/DL (0.2-1.0); BLOOD UREA NITROGEN 39 MG/DL (7-18); C REACTIVE PROTEIN QUANTITATIV < 0.30 MG/DL (0.00-0.30); CALCIUM LEVEL 8.9 MG/DL (8.8-10.2); CARBON DIOXIDE LEVEL 27 MEQ/L (21-32); CHLORIDE LEVEL 105 MEQ/L (98-107); CREATININE FOR GFR 2.42 MG/DL (0.55-1.30); GLOMERULAR FILTRATION RATE 21.2 (>45); GLUCOSE, FASTING 188 MG/DL (70-100); POTASSIUM SERUM 4.7 MEQ/L (3.5-5.1); SODIUM LEVEL 138 MEQ/L (136-145); TOTAL PROTEIN 7.1 GM/DL (6.4-8.2)
[2019-11-27 11:18] LABS: HEMOGLOBIN A1c 7.1 %
== END ==
LOC: M PLALAB 08:21
PROVIDERS: ATTEND Internal Medicine
DX: R70.0 Elevated erythrocyte sedimentation rate (principal); I12.9 Hypertensive chronic kidney disease with stage 1 through stage 4 chronic kidney disease, or unspecified chronic kidney disease; E11.3299 Type 2 diabetes mellitus with mild nonproliferative diabetic retinopathy without macular edema, unspecified eye; E78.00 Pure hypercholesterolemia, unspecified; N18.3 Chronic kidney disease, stage 3 (moderate); D63.1 Anemia in chronic kidney disease

== ENCOUNTER → 2019-12-19 | Outpatient (REF) | payer MEDICARE, OTHER ==
[2019-12-19 17:34] LABS: CALCIUM LEVEL 9.6 MG/DL (8.8-10.2); CREATININE FOR GFR 2.45 MG/DL (0.55-1.30); GLOMERULAR FILTRATION RATE 20.9 (>45); POTASSIUM SERUM 5.3 MEQ/L (3.5-5.1)
== END ==
LOC: M SFHCPLAZ 13:08
PROVIDERS: ATTEND Internal Medicine
DX: N18.3 Chronic kidney disease, stage 3 (moderate) (principal)

== ENCOUNTER → 2019-12-25 | Outpatient (REF) | payer MEDICARE, OTHER ==
[2019-12-25 18:03] LABS: CALCIUM LEVEL 9.4 MG/DL (8.8-10.2); CREATININE FOR GFR 2.08 MG/DL (0.55-1.30); GLOMERULAR FILTRATION RATE 25.2 (>45); POTASSIUM SERUM 5.6 MEQ/L (3.5-5.1)
== END ==
LOC: M SFHCPLAZ 14:25
PROVIDERS: ATTEND Internal Medicine
DX: N18.3 Chronic kidney disease, stage 3 (moderate) (principal)

== ENCOUNTER 2019-12-29 07:26 | Inpatient (IN) | payer MEDICARE, OTHER ==
[~2019-12-29] VITALS: Ht 170.2 cm; Wt 88.6 kg
[2019-12-29] MEDS ORDERED: FUROSEMIDE 40 MG/4 ML VIAL (J1940) IV ONE (08:15)
[2019-12-29 08:16] LABS: BASO # 0.1 10^3/uL (0.0-0.2); BASO % 0.3 % (0.0-1.0); EOS # 0.1 10^3/uL (0.0-0.5); EOS % 0.4 % (0.0-3.0); HEMATOCRIT 30.1 % (36.0-47.0); LYMPH % 6.5 % (24.0-44.0); MEAN CORPUSCULAR HEMOGLOBIN 31.8 pg (27.0-33.0); MEAN CORPUSCULAR HGB CONC 33.2 g/dl (32.0-36.5); MEAN CORPUSCULAR VOLUME 95.9 fl (80.0-96.0); MONO # 1.1 10^3/uL (0.0-0.8); MONO % 7.1 % (0.0-5.0); NEUTROPHILS # 13.3 10^3/uL (1.5-8.5); NEUTROPHILS % 85.3 % (36.0-66.0); PLATELET COUNT, AUTOMATED 307 10^3/uL (150-450); RED BLOOD COUNT 3.14 10^6/uL (4.00-5.40); WHITE BLOOD COUNT 15.6 10^3/uL (4.0-10.0)
--- NOTE | 2019-12-29 08:28 | REP ---
Clinical: Chest pain. Comparison: 05/22/2019. Findings: Chronic stable cardiomegaly. Diffusely increased interstitial markings and prominent pulmonary vasculature is suggested. Differential diagnosis includes pulmonary vascular congestion/interstitial edema as well as bronchitis. No focal consolidation or effusion. Skeletal structures are intact. Impression: 1. Limited portable examination suggesting pulmonary vascular congestion/interstitial edema versus bronchitis / viral pneumonia pattern. Correlation is required. 2. No focal consolidation or effusion. Electronically Signed by Torres Rutherford MD 12/29/2019 08:20 A
[2019-12-29] MEDS ORDERED: MORPHINE 2 MG/ML 1ML VIAL (J2270) IV ONE (08:30)
[2019-12-29] MEDS ORDERED: PRED10PA PO (08:37)
[2019-12-29] MEDS ORDERED: JANU100T PO ×2 (08:37→12:16)
[2019-12-29] MEDS ORDERED: DITR1TAB PO (08:37)
[2019-12-29] MEDS ORDERED: LOSA100T50 PO ×2 (08:37→12:16)
[2019-12-29] MEDS ORDERED: REGL5TAB2 PO ×2 (08:37→12:16)
[2019-12-29] MEDS ORDERED: PRAV80TA2 PO ×2 (08:37→12:16)
[2019-12-29] MEDS ORDERED: GLYB5TAB12 PO ×2 (08:37→12:16)
[2019-12-29] MEDS ORDERED: MACR100C43 PO ×2 (08:37→12:16)
[2019-12-29 08:42] LABS: PROTHROMBIN TIME 12.9 SECONDS (11.8-14.0)
[2019-12-29 08:43] LABS: BLOOD UREA NITROGEN 30 MG/DL (7-18); CALCIUM LEVEL 9.3 MG/DL (8.8-10.2); CARBON DIOXIDE LEVEL 20 MEQ/L (21-32); CHLORIDE LEVEL 107 MEQ/L (98-107); CK-MB VALUE MASS < 1.0 NG/ML (<3.6); CPK CREATINE PHOSPHOKINASE 83 U/L (26-192); CREATININE FOR GFR 1.79 MG/DL (0.55-1.30); GLUCOSE, FASTING 262 MG/DL (70-100); NT-PRO BNP 2923 PG/ML (<125); PARTIAL THROMBOPLASTIN TIME 29.3 SECONDS (25.0-38.4); SODIUM LEVEL 135 MEQ/L (136-145); TROPONIN I < 0.02 NG/ML (< 0.10)
[2019-12-29 08:45] LABS: D-DIMER QUANT 1781.28 ng/ml (<500)
--- NOTE | 2019-12-29 08:46 | ECGEPIP ---
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
[2019-12-29] MEDS ORDERED: FERROUS SULFATE 325MG TAB PO SCH (09:00)
[2019-12-29] MEDS ORDERED: LOSARTAN 50 MG TAB PO SCH (09:00)
[2019-12-29] MEDS ORDERED: NITROGLYCERIN 2% OINT 1 GM *U/D* PKT TOP ONE (11:30)
[2019-12-29 11:41] LABS: CK-MB VALUE MASS 1.7 NG/ML (<3.6); MB/CK RELATIVE INDEX 2.1 (< OR =4); TROPONIN I 0.05 NG/ML (< 0.10)
[2019-12-29] MEDS ORDERED: ATEN50TA2 PO (12:16)
[2019-12-29] MEDS ORDERED: AMIO200T PO (12:16)
[2019-12-29] MEDS ORDERED: LEVO50TA45 PO (12:16)
[2019-12-29] MEDS ORDERED: FERR1TAB8 PO (12:16)
[2019-12-29] MEDS ORDERED: LASI40TA9 PO (12:16)
[2019-12-29] MEDS ORDERED: SUPETAB44 PO (12:16)
[2019-12-29] MEDS ORDERED: FISH1000 PO (12:16)
[2019-12-29] MEDS ORDERED: PLAV1TAB2 PO (12:16)
[2019-12-29] MEDS ORDERED: CALC600T6 PO (12:16)
[2019-12-29] MEDS ORDERED: VITMTA PO (12:16)
[2019-12-29] MEDS ORDERED: OXYB10TA23 PO (12:16)
[2019-12-29] MEDS ORDERED: ASPI81TA26 PO (12:16)
[2019-12-29] MEDS ORDERED: hydrALAZINE INJ 20 MG/ML VIAL IV SCH ×2 (13:45)
[2019-12-29 14:45] VITALS: BP 185/82
[2019-12-29 14:58] LABS: FREE T4 1.08 NG/DL (0.76-1.46); THYROID STIMULATING HORMONE 3.04 uIU/ML (0.358-3.740)
[2019-12-29] MEDS: FUROSEMIDE 40 MG/4 ML VIAL (J1940) IV SCH (17:24)
[2019-12-29] MEDS: **hydrALAZINE** 10 MG TAB PO SCH (17:24)
[2019-12-29 17:30] LABS: ALBUMIN 3.7 GM/DL (3.2-5.2); ALT/SGPT 22 U/L (12-78); BILIRUBIN,DIRECT 0.2 MG/DL (0.0-0.2); BILIRUBIN,TOTAL 0.6 MG/DL (0.2-1.0); TOTAL PROTEIN 7.5 GM/DL (6.4-8.2)
[2019-12-29 18:00] VITALS: BP 183/82
[2019-12-29] MEDS ORDERED: **hydrALAZINE** 10 MG TAB PO SCH (18:00)
--- NOTE | 2019-12-29 18:34 | HPEPDOC ---
[facility] Medical History & Physical Date of Admission Dec 29, 2019 Date of Service: Dec 29, 2019 Primary Care Physician: Anil Tian Attending Physician: CRISTIANE PERALTA DO History and Physical CHIEF COMPLAINT: Shortness of breath HISTORY OF PRESENT ILLNESS: Liseth Sykes is a 69 YO with history of atrial fibrillation, dCHF (LVEF 60%, grade III diastolic dysfunction, 03/2019) who presents with shortness of breath, "rattling in chest" and weakness. She states that she woke up this morning to go to the bathroom and had a hard time walking to the bathroom due to her profound shortness of breath. She states that she has noticed worsening shortness of breath over the past week. She has not noticed any difficulty laying flat to sleep and she has been using her CPAP at home. She notes that she has been taking all her medication as prescribed but she is unsure of the names of any of her medications. She sees Dr. Anil Tian in the outpatient setting. She does report that she ate fast food at [employer] yesterday and has not been on a diuretic since she last Dr. Tian. Otherwise, she denies any fevers, chills, nausea, vomiting or diarrhea. 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 Hypertension with renal disease. Chronic kidney disease, stage 3 (moderate). Atherosclerotic heart disease of [place] coronary artery without angina pectoris. Anemia in chronic kidney disease. Hypercholesterolemia. Gastro-esophageal reflux disease without esophagitis. Other vitamin B12 deficiency anemias. Nonrheumatic aortic (valve) stenosis. Hypothyroidism. Elevated erythrocyte sedimentation rate. History of exposure to infectious disease. History of recurrent urinary tract infection. residential systemic steroid user. Obstructive sleep apnea syndrome on CPAP at home History of atrial fibrillation. PAST SURGICAL HISTORY: tubal ligation 1975 cholecystectomy 1978 appendectomy 1978 D&C for heavy menstrual bleeding 1988 colonoscopy 06/22/2009 cardiac stent x6 prior to 2010 CABG 10/08/2010 SOCIAL HISTORY: Non-smoker, never smoker. Denies EtOH or other drugs FAMILY HISTORY: Father at fairly advanced age in 2016, had CAD and dementia. Mother age 58 of cardiomyopathy. One sister is alive and is also healthy. She is 2 para 2 with healthy children. ALLERGIES: Please see below. REVIEW OF SYSTEMS: CONSTITUTIONAL: Feels well. No fever or chills HEENT: denies vision changes, no sinus problems, denies any trouble swallowing CARDIOVASCULAR: no palpitations RESPIRATORY: Reports shortness of breath, Dyspnea on exertion GENITOURINARY: No dysuria MUSCULOSKELETAL: Denies any joint/muscle pain GASTROINTESTINAL: Denies abdominal pain, no nausea/vomiting/diarrhea SKIN: No new rashes or lesions NEUROLOGICAL: No loss of sensation PSYCHIATRIC: Reports normal mood, no delusions or hallucinations ENDOCRINE: No hot/cold intolerance HEMATOLOGIC/LYMPHATIC: No easy bruising, no lumps/bumps ALLERGIC/IMMUNOLOGIC: No sinus symptoms HOME MEDICATIONS: Please see below. PHYSICAL EXAMINATION: VITAL SIGNS: Please see below. GENERAL APPEARANCE: Laying in bed, appears stated age, no acute distress, calm, cooperative HEENT: EOMI, PERRLA, neck is supple with no thyromegaly or lymphadenopathy RESPIRATORY: faint crackles are heard at the bases bilaterally with no other adventitious breath sounds appreciated CARDIOVASCULAR: no JVD, RRR, no murmurs/rubs/gallops ABDOMEN: Soft, nontender to palpation in all four quadrants, no masses/organomegaly EXTREMITIES: no clubbing, cyanosis or edema noted NEUROLOGICAL: No obvious focal deficits PSYCHIATRIC: somewhat flat affect, normal mood Skin: No rashes or ulcers. LN: No significant cervical or inguinal lymphadenopathy LABORATORY DATA: See below. IMAGING: CXR: Findings: Chronic stable cardiomegaly. Diffusely increased interstitial markings and prominent pulmonary vasculature is suggested. Differential diagnosis includes pulmonary vascular congestion/interstitial edema as well as bronchitis. No focal consolidation or effusion. Skeletal structures are intact. Impression: 1. Limited portable examination suggesting pulmonary vascular congestion/interstitial edema versus bronchitis / viral pneumonia pattern. Correlation is required. 2. No focal consolidation or effusion. MICROBIOLOGY: Please see below. ASSESSMENT: This is a 69 YO F with history of AF and dCHF (LVEF 60%, grade III diastolic dysfunction, 03/2019) who presents with shortness of breath and dyspnea on exertion found to have leukocytosis, interstitial edema and pulmonary vascular congestion concerning for acute congestive heart failure exacerbation vs acute viral pneumonia. She also has severe asymptomatic hypertension and found to have BP 230/102 in the ED. She will be admitted for duresis and further workup. PLAN: 1. Severe asymptomatic hypertension: BP found to be 230/102 in ED, down to 185/82 s/p 40mg IV lasix. Patient is unsure whether she took her home BP meds this AM -Start 10mg PO Hydralazine Q6H with hold parameters -Will resume home BP regimen with adjustment: increase Losartan to 100mg PO daily, resume Atenolol 75mg daily -Patient does not show any end-organ damage at this time 2. acute diastolic Congestive heart failure exacerbation: likely 2/2 noncomplian ce with low sodium/fluid restricted diet -IV lasix 40mg BID -Lasix previously held by PCP due to worsening renal function in setting of CKD. Renal function today is stable. -Strict I/O -Daily weights -2g sodium diet with 1500cc fluid restriction 3. Paroxysmal atrial fibrillation: -Per Primary care notes, patient experienced AF after coronary stenting in 2010. She has been on Amiodarone ever since and NOT on anticoagulation other than Plavix/ASA. Plavix recently stopped by PCP for unknown reason. -Will continue ASA and Plavix. Patient's primary care notes have no documented AF since initial event in 2010. 4. Atherosclerotic heart disease: Had Non-Q-wave TN 11/09, and had a stent placed. LV function normal. Another stent placed in 03/09 after abnormal stress test, another stent 06/2010 (OM2) after abnormal stress test 05/2010. An RCA stent was placed in 09/2010, and she had a robotic LAD/diagonal bypass 10/2010. Last cardiac catheterization was in 08/2011 at which time she had a D1 stent placed. Last stress test 07/2013 and she has no symptoms of recurrent disease. Last LVEF normal at 07/2013 stress test study (64%), and it was 60-65% when she had her echo in March 2019. Has no angina. -Continue home statin, ASA, Plavix, Beta ankur 5. CKD stage 3: renal function stable -Will continue to monitor 6. GERD: -continue home dose Reglan DISPO: Pending improvement in SOB. Vital Signs Vital Signs Date Time Temp Pulse Resp B/P (MAP) Pulse Ox O2 Delivery O2 Flow Rate FiO2 12/29/19 14:14 58 18 186/84 (118) 98 Room Air 12/29/19 07:26 96.4 Laboratory Data Labs 24H Laboratory Tests 2 12/29/19 08:04: Immature Granulocyte % (Auto) 0.4, Neutrophils (%) (Auto) 85.3H, Lymphocytes (%) (Auto) 6.5L, Monocytes (%) (Auto) 7.1H, Eosinophils (%) (Auto) 0.4, Basophils (%) (Auto) 0.3, Neutrophils # (Auto) 13.3H, Lymphocytes # (Auto) 1.0L, Monocytes # (Auto) 1.1H, Eosinophils # (Auto) 0.1, Basophils # (Auto) 0.1, Nucleated Red Blood Cells % (auto) 0.0, Prothrombin Time 12.9, Prothromb Time International Ratio 1.00, Activated Partial Thromboplast Time 29.3, D-Dimer, Quantitative 1781.28H, Anion Gap 8, Glomerular Filtration Rate 30.0L, Calcium Level 9.3, Total Creatine Kinase 83, Creatine Kinase MB < 1.0, Creatine Kinase MB Relative Index 1.20, Troponin I < 0.02, EI-Exq-T-Type Natriuretic Peptide 2923H 12/29/19 10:30: Total Creatine Kinase 81, Creatine Kinase MB 1.7, Creatine Kinase MB Relative Index 2.10, Troponin I 0.05# CBC/BMP Laboratory Tests 12/29/19 08:04 Home Medications Scheduled Amiodarone HCl (Amiodarone HCl) 200 Mg Tablet, 200 MG PO DAILY Aspirin (Aspirin EC) 81 Mg Tablet.dr, 81 MG PO DAILY Atenolol (Atenolol) 50 Mg Tablet, 75 MG PO DAILY Calcium Carbonate/Vitamin D3 (Calcium 600-Vit D3 400 Tablet) 1 Each Tablet, 1 TAB PO DAILY Clopidogrel Bisulfate (Plavix) 75 Mg Tablet, 75 MG PO DAILY Ferrous Sulfate (Ferrous Sulfate) 325 Mg Tablet, 325 MG PO DAILY Folic Acid/Vit B Complex and C (Super B Complex Tablet) 400 Mcg Tablet, 1 TAB PO DAILY Furosemide (Lasix) 40 Mg Tablet, 40 MG PO DAILY Glyburide/Metformin HCl (Glyburide-Metformin 5-500 mg) 1 Each Tablet, 1 TAB PO BID Levothyroxine Sodium (Levoxyl) 50 Mcg Tablet, 50 MCG PO DAILY Losartan Potassium (Losartan Potassium) 100 Mg Tablet, 50 MG PO DAILY Metoclopramide Hcl (Reglan) 5 Mg Tablet, 5 MG PO BID Multivitamins (Thera M Plus Tablet) 1 Each Tablet, 1 TAB PO DAILY Nitrofurantoin Monohyd/M-Cryst (Macrobid 100 mg Capsule) 100 Mg Capsule, 100 MG PO DAILY [place]-3 Fatty Acids/Fish Oil (Fish Oil 1,000 mg Capsule) 1 Each Capsule, 1,000 MG PO DAILY Oxybutynin Chloride (Oxybutynin Chloride ER) 10 Mg Tab.er.24, 10 MG PO DAILY Pravastatin Sodium (Pravastatin Sodium) 80 Mg Tablet, 80 MG PO DAILY Sitagliptin Phosphate (Januvia) 100 Mg Tablet, 100 MG PO DAILY Allergies Coded Allergies: Sulfa (Sulfonamide Antibiotics) (Verified Allergy, Unknown, itching, 12/29/19) A-FIB/CHADSVASC A-FIB History Current/History of A-Fib/PAF?: No GME ATTESTATION GME ATTESTATION My faculty preceptor for this patient encounter was physically present during the encounter and was fully available. All aspects of the patient interview, examination, medical decision making process, and medical care plan development were reviewed and approved by the faculty preceptor. The faculty preceptor is aware and concurs with the plan as stated in the body of this note and will attest to such by his/her cosignature. ATTENDING NOTE I, Cristiane Peralta, have independently examined this patient and performed my own physical exam, as well as reviewed the documentation. I have discussed in detail with the resident / student the findings and plan of treatment as documented by the resident / student Patient is 69 years old female with past history of atrial fibrillation, diastolic CHF, type 2 diabetes, chronic kidney diseases presented hospital with shortness of breath, secondary to acute on chronic diastolic CHF. Also patient was found to have hypertensive urgency. Patient has a documented history of atrial fibrillation However, patient was not on the anticoagulation. I started targeted oral anticoagulation therapy. Also patient was on the amiodarone since 2010. Patient stated that she didn't have any cardiac consult after that. I see no indication for amiodarone for now. Telemetry showed sinus rhythm. I discontinued amiodarone. I discontinued Plavix. Last stent placement was in 2010 ROBE LIZARRAGA MD Dec 29, 2019 14:24 CRISTIANE PERALTA DO Dec 30, 2019 15:15
[2019-12-29] MEDS: METOCLOPRAMIDE 5 MG TAB PO SCH (20:17)
[2019-12-29] MEDS: LOSARTAN 50 MG TAB PO SCH (21:06)
[2019-12-29 22:00] VITALS: BP 182/81
[2019-12-30] VITALS (7 sets, daily range): BP systolic 132–160; BP diastolic 57–75
[2019-12-30] MEDS: **hydrALAZINE** 10 MG TAB PO SCH ×4 (05:34→18:00)
[2019-12-30] MEDS: LEVOTHYROXINE 50MCG TABLET (0.05MG) PO SCH (05:40)
[2019-12-30 06:12] LABS: HEMOGLOBIN 8.8 g/dl (12.0-15.5); MEAN CORPUSCULAR HEMOGLOBIN 31.8 pg (27.0-33.0); MEAN CORPUSCULAR HGB CONC 33.8 g/dl (32.0-36.5); MEAN CORPUSCULAR VOLUME 93.9 fl (80.0-96.0); PLATELET COUNT, AUTOMATED 281 10^3/uL (150-450); RED BLOOD COUNT 2.77 10^6/uL (4.00-5.40); WHITE BLOOD COUNT 9.4 10^3/uL (4.0-10.0)
[2019-12-30 06:37] LABS: ALBUMIN 3.2 GM/DL (3.2-5.2); BILIRUBIN,TOTAL 0.7 MG/DL (0.2-1.0); CALCIUM LEVEL 8.8 MG/DL (8.8-10.2); CREATININE FOR GFR 1.85 MG/DL (0.55-1.30); GLOMERULAR FILTRATION RATE 28.9 (>45); POTASSIUM SERUM 4.9 MEQ/L (3.5-5.1); TOTAL PROTEIN 6.6 GM/DL (6.4-8.2)
--- NOTE | 2019-12-30 08:02 | ECHO ---
DATE OF PROCEDURE: 12/29/2019 REFERRING PHYSICIAN: Dr. George Whitney REASON FOR THE STUDY: Shortness of breath. 2D MEASUREMENT: IVS - 1.0 cm LV - 4.7 cm LVPW - 1.0 cm LA - 4.5 cm Aorta - 2.9 cm RV - 3.3 cm IVC - 1.9 cm DOPPLER MEASUREMENTS: Peak velocity across the aortic valve - 3.0 meters per second Peak velocity across the LVOT - 0.75 meters per second Peak gradient across the aortic valve - 36 mmHg Mean gradient across the aortic valve - 21 mmHg Mitral E - 0.97, Mitral A - 0.42 with a ratio of greater than 1.0 Mitral tricuspid valve velocity - 3.5 m/s 2D COMMENTS: 1. Normal left ventricular size and systolic function. The estimated global left ventricular systolic function is between 55-60%. Subjectively, there is mild concentric left ventricular hypertrophy. 2. Mildly enlarged left atrium. Normal right atrium and right ventricle. 3. The atrial septum appeared to be normal without evidence of defect or shunt. 4. Normal aortic root. 5. No pericardial effusion seen. 6. Moderately calcified aortic valve with decrease in leaflet excursion. Mildly calcified mitral annulus with normal anterior mitral valve leaflet motion. Normal tricuspid valve and pulmonic valve. The proximal pulmonary artery branches also appeared to be normal. 7. The inferior vena cava was normal in size, central venous pressure might be normal. Doppler detects trace aortic regurgitation, mild mitral regurgitation, mild tricuspid regurgitation, and mild pulmonic regurgitation. The calculated pulmonary artery systolic pressure varies between 40-50 mmHg. IMPRESSION: 1. Normal global left ventricular systolic function with probably mild concentric left ventricular hypertrophy. 2. Aortic valve sclerosis with trace aortic regurgitation and probably moderate aortic stenosis. 3. Mitral annulus calcification with mild mitral regurgitation and a mildly enlarged left atrium. 4. Mild tricuspid regurgitation with moderate pulmonary hypertension. The right heart chambers appeared to be normal in size. 5. Mild pulmonic regurgitation.
[2019-12-30 08:16] LABS: PERCENT SATURATION 10.8 % (13.2-45.0)
[2019-12-30] MEDS: FUROSEMIDE 40 MG/4 ML VIAL (J1940) IV SCH (08:48)
[2019-12-30] MEDS: METOCLOPRAMIDE 5 MG TAB PO SCH ×2 (08:48→20:48)
[2019-12-30] MEDS: oxyBUTYnin *DITROPAN XL* 5 MG TABCR PO SCH (08:48)
[2019-12-30] MEDS: APIXABAN 5 MG TAB (ELIQUIS) PO SCH ×2 (08:48→20:48)
[2019-12-30] MEDS: amLODIPine 10 MG TAB PO SCH (08:48)
[2019-12-30] MEDS: atenoloL 25 MG TAB PO SCH (08:49)
[2019-12-30] MEDS: FERROUS SULFATE 325MG TAB PO SCH (08:49)
[2019-12-30] MEDS: ASPIRIN 81 MG ENTERIC TAB PO SCH (08:49)
[2019-12-30] MEDS: PRAVASTATIN 20 MG TAB PO SCH (08:49)
[2019-12-30] MEDS ORDERED: NITROFURANTOIN (MACROBID) 100 MG CAP PO SCH (09:00)
[2019-12-30] MEDS ORDERED: SITagliptin 50 MG TAB (JANUVIA) PO SCH (09:00)
[2019-12-30] MEDS ORDERED: CLOPIDOGREL 75 MG TAB PO SCH (09:00)
[2019-12-30] MEDS ORDERED: AMIODARONE 200 MG TAB (PACERONE) PO SCH (09:00)
[2019-12-30] MEDS ORDERED: ENOXAPARIN 40 MG/0.4 ML SYRINGE (J1650) SC SCH (09:00)
[2019-12-30] MEDS ORDERED: LOSARTAN 50 MG TAB PO SCH (09:00)
[2019-12-30 11:54] LABS: CALCIUM LEVEL 8.8 MG/DL (8.8-10.2); CREATININE FOR GFR 2.08 MG/DL (0.55-1.30); GLOMERULAR FILTRATION RATE 25.2 (>45); POTASSIUM SERUM 5.1 MEQ/L (3.5-5.1)
[2019-12-30] MEDS ORDERED: DEXTROSE 50% 50 ML SYRINGE IV PRN (12:30)
[2019-12-30] MEDS ORDERED: GLUCAGON FOR INJ 1 MG VIAL (J1610) SC PRN (12:30)
[2019-12-30] MEDS ORDERED: GLUCOSE 4 GM CHEW TABLET PO PRN (12:30)
[2019-12-30] MEDS: HumaLOG INSULIN (NovoLOG) PER UNIT SC SCH ×2 (12:51→17:30)
--- NOTE | 2019-12-30 14:33 | IPNPDOC ---
Text Note Date of Service The patient was seen on 12/30/19. NOTE Subjective: Patient stated that she feels much better today, her breathing im proved. No any acute events overnight Objective: VITAL SIGNS: Please see below. GENERAL APPEARANCE: Well-nourished, well-developed, not in apparent distress HEENT: Normocephalic, atraumatic. Mucous members moist and pink CARDIOVASCULAR: Regular rate and rhythm. No murmurs, rubs or gallops. Radial pulses are intact. There is no lower extremity edema LUNGS: Diminished lung sounds ABDOMEN: Abdomen is soft and nontender. MUSCULOSKELETAL: Range of motion is intact in all 4 extremities NEUROLOGICAL: Cranial nerves II-12 are grossly intact. Speech is not dysarthric Assessment and plan Patient is 69 years old female with past history of atrial fibrillation, diastolic CHF, type 2 diabetes, chronic kidney diseases presented hospital with shortness of breath, secondary to acute on chronic diastolic CHF. Also patient was found to have hypertensive urgency Acute on chronic diastolic CHF Echo was done and showed ejection fraction 60-65 % with normal left ventricular function Patient received diuresis with Lasix IV with good urinary output I's and O's Cardiac diet Atrial fibrillation Patient has a documented history of atrial fibrillation However, patient was not on the anticoagulation I started targeted oral anticoagulation therapy Heart rate is under control Hypertensive urgency Resolved Losartan on hold due to ROSAURA Norvasc Coronary artery diseases Patient was on dual antiplatelet therapy. She has significant cardiac history with past history of stents placement and CABG in 2010. Last stent placement was in 2010. Also patient was on the amiodarone since 2010. Patient stated that she didn't have any cardiac consult after that. I see no indication for amiodarone for now. Telemetry showed sinus rhythm. I discontinued amiodarone. I discontinued Plavix. Patient needs follow-up with senior project engineer in the outpatient settings Continue beta blockers, statin ROSAURA After intensive diuresis secondary to CHF exacerbation Dose of Lasix decreased Losartan on hold Continue to monitor Diabetes type 2 Insulin sliding scale Diabetes diet VS,Fishbone, I+O VS, Fishbone, I+O Laboratory Tests 12/30/19 05:44 12/30/19 11:15 Vital Signs Date Time Temp Pulse Resp B/P (MAP) Pulse Ox O2 Delivery O2 Flow Rate FiO2 12/30/19 12:00 145/60 12/30/19 08:48 61 12/30/19 06:00 98.7 16 97 Room Air I&O- Last 24 Hours up to 6 AM 12/30/19 06:00 Intake Total 925 ml Output Total 1800 ml Balance -875 ml CRISTIANE PERALTA DO Dec 30, 2019 14:33
--- NOTE | 2019-12-30 16:07 | ECGEPIP ---
[facility] - ED Test Date: 2019-12-29 Pat Name: MIHAI MILNER Department: Room: - Gender: Female Forensic Examiner: ef : 1950 Requested By: Johny Perales Order Number: [id number] Reading MD: Jenise Torres Measurements Intervals [place] Rate: 52 P: 55 IA: 244 QRS: -10 QRSD: 113 T: 4 QT: 468 QTc: 439 Interpretive Statements SINUS BRADYCARDIA WITH FIRST DEGREE AV BLOCK MODERATE INTRAVENTRICULAR CONDUCTION DELAY MINIMAL VOLTAGE CRITERIA FOR LVH, CONSIDER NORMAL VARIANT MINIMAL ST DEPRESSION DECREASED RATE 12/29/19 Electronically Signed on 12-30-2019 16:06:44 EDT by Jenise Torres
[2019-12-30] MEDS ORDERED: HumaLOG INSULIN (NovoLOG) PER UNIT SC SCH (21:00)
[2019-12-31] MEDS: LEVOTHYROXINE 50MCG TABLET (0.05MG) PO SCH (05:36)
[2019-12-31] MEDS: **hydrALAZINE** 10 MG TAB PO SCH ×2 (05:37)
[2019-12-31 06:00] VITALS: BP 157/83
[2019-12-31 06:21] LABS: HEMATOCRIT 24.7 % (36.0-47.0); HEMOGLOBIN 8.3 g/dl (12.0-15.5); MEAN CORPUSCULAR HEMOGLOBIN 31.9 pg (27.0-33.0); MEAN CORPUSCULAR HGB CONC 33.6 g/dl (32.0-36.5); PLATELET COUNT, AUTOMATED 302 10^3/uL (150-450); WHITE BLOOD COUNT 7.7 10^3/uL (4.0-10.0)
[2019-12-31 07:24] LABS: ALBUMIN 3.1 GM/DL (3.2-5.2); BILIRUBIN,TOTAL 0.3 MG/DL (0.2-1.0); CALCIUM LEVEL 9.2 MG/DL (8.8-10.2); CREATININE FOR GFR 2.15 MG/DL (0.55-1.30); GLOMERULAR FILTRATION RATE 24.3 (>45); TOTAL PROTEIN 7.1 GM/DL (6.4-8.2)
[2019-12-31] MEDS ORDERED: AMLO10TA5 PO (08:57)
[2019-12-31] MEDS ORDERED: ELIQ5TAB PO (08:57)
[2019-12-31] MEDS: ASPIRIN 81 MG ENTERIC TAB PO SCH (09:00)
[2019-12-31] MEDS: PRAVASTATIN 20 MG TAB PO SCH (09:00)
[2019-12-31] MEDS ORDERED: FUROSEMIDE 40 MG/4 ML VIAL (J1940) IV SCH ×2 (09:00)
[2019-12-31] MEDS: FERROUS SULFATE 325MG TAB PO SCH (09:01)
[2019-12-31] MEDS: atenoloL 25 MG TAB PO SCH (09:01)
[2019-12-31] MEDS: METOCLOPRAMIDE 5 MG TAB PO SCH (09:01)
[2019-12-31] MEDS: amLODIPine 10 MG TAB PO SCH (09:02)
[2019-12-31] MEDS: APIXABAN 5 MG TAB (ELIQUIS) PO SCH (09:02)
[2019-12-31] MEDS: oxyBUTYnin *DITROPAN XL* 5 MG TABCR PO SCH (09:02)
[2019-12-31] MEDS: HumaLOG INSULIN (NovoLOG) PER UNIT SC SCH (09:03)
[2019-12-31 09:09] VITALS: BP 149/68
[2019-12-31] MEDS: LOSARTAN 50 MG TAB PO SCH (09:09)
[2019-12-31] MEDS ORDERED: FURO40TA2 PO (14:35)
--- NOTE | 2019-12-31 15:29 | DS.PDOC ---
Discharge Summary General Date of Admission Dec 29, 2019 at 13:58 Date of Discharge 12/31/19 Primary Care Physician: Anil Tian Attending Physician: CRISTIANE PERALTA DO Discharge Summary PROCEDURES PERFORMED DURING STAY: None ADMITTING DIAGNOSES: Severe Asymptomatic HTN Acute Diastolic CHF Paroxysmal atrial fibrillation Atherosclerotic heart disease CKD III GERD DMII DISCHARGE DIAGNOSES: Acute on chronic diastolic CHF Atrial fibrillation, paroxysmal Severe, asymptomatic hypertension Coronary artery disease ROASURA DMII COMPLICATIONS/CHIEF COMPLAINT: CHF Exacerbation. HISTORY OF PRESENT ILLNESS: Liseth Sykes is a 69 YO with history of atrial fibrillation, dCHF (LVEF 60%, grade III diastolic dysfunction, 03/2019) who presents with shortness of breath, "rattling in chest" and weakness. She states that she woke up this morning to go to the bathroom and had a hard time walking to the bathroom due to her profound shortness of breath. She states that she has noticed worsening shortness of breath over the past week. She has not noticed any difficulty laying flat to sleep and she has been using her CPAP at home. She notes that she has been taking all her medication as prescribed but she is unsure of the names of any of her medications. She sees Dr. Anil Tian in the outpatient setting. She does report that she ate fast food at [employer] yesterday and has not been on a diuretic since she last Dr. Tian. Otherwise, she denies any fevers, chills, nausea, vomiting or diarrhea. HOSPITAL COURSE: Following admission, patient was continued on IV Lasix BID for likely CHF exacerbation. Pt states her Lasix was previously held by her PCP 2/2 to rising BUN/Cr. She was placed on strict I/O with daily weights and both a 2g and 1500cc restriction. In regards to patient's severe asymptomatic HTN, she was started on 10 mg PO hydralyzine with holding parameters. Her home atenolol was continued and her losartan, increased to 100 mg daily. Patient carries an uncertain history of atrial fibrillation following her stenting procedure in 2010. She does not believe she has had any subsequent episodes. Pt has been on amiodarone without any other anticoagulation aside from ASA and Plavix. Pt was placed on Eliquis 2.5 BID and her Plavix was discontinued given the length of time since her stent placement in 2010. No indication of atrial fibrillation throughout her hospital stay, NSR via telemetry. Amiodarone discontinued. Echo performed during hospitalization confirmed preserved ejection fraction. Over the weekend, patient developed an ROSAURA 2/2 to aggressive diuresis. Her Lasix and losartan will be held on discharge, to be restarted 2 days later. She should follow-up with PCP for repeat BMP as an outpatient. The morning of discharge, patient did not have any signs or symptoms of volume overload. Her BP was significantly improved to 130's systolic. Discharge instructions were discussed in detail with the patient, as well as importance of close outpatient follow-up. Patient verbalized unde rstanding using the teach-back method. DISCHARGE MEDICATIONS: Please see below. ALLERGIES: Please see below. PHYSICAL EXAMINATION ON DISCHARGE: VITAL SIGNS: Please see below. GENERAL APPEARANCE: Seated upright, appears stated age, no acute distress, calm, cooperative HEENT: EOMI, PERRLA, neck is supple with no thyromegaly or lymphadenopathy RESPIRATORY: CTABL, no WRR CARDIOVASCULAR: no JVD, RRR, no murmurs/rubs/gallops ABDOMEN: Soft, nontender to palpation in all four quadrants, no masses/organomegaly EXTREMITIES: no clubbing, cyanosis or edema noted NEUROLOGICAL: No obvious focal deficits PSYCHIATRIC: Mood and affect appropriate Skin: No rashes or ulcers LN: No significant cervical or inguinal lymphadenopathy LABORATORY DATA: Please see below. IMAGING: Chest XR (12/29/19): Limited portable examination suggesting pulmonary vascular congestion/interstitial edema versus bronchitis/viral pneumonia pattern. Correlation is required. No focal consolidation or effusion. Echocardiogram (12/29/19): Normal global left ventricular systolic function with probably mild concentric left ventricular hypertrophy. Aortic valve sclerosis with trace aortic regurgitation and probably moderate aortic stenosis. Mitral annulus calcification with mild mitral regurgitation and a mildly enlarged left atrium. Mild tricuspid regurgitation with moderate pulmonary hypertension. The right heart chambers appeared to be normal in size. PROGNOSIS: Guarded ACTIVITY: As tolerated. DIET: As tolerated. DISPOSITION: Home, Self-Care. DISCHARGE INSTRUCTIONS: Please check your weight daily and call your PCP if you gain more than 5 pounds. You were started on a blood thinner for your atrial fibrillation, called Eliquis which is to be taken once daily. This medication will make you more prone to bleeding/brusing. Please contact your PCP should you notice any unusual bleeding. You were started on a new blood pressure pill, called Amlodipine, which is to be taken once daily. You can start taking furosemide and losartan in 2 days. Should you experience worsening shortness of breath, please return to the ED. Thank you for allowing us to participate in your care. DISCHARGE CONDITION: Stable TIME SPENT ON DISCHARGE: Greater than 35 minutes. Vital Signs/I&Os Vital Signs Date Time Temp Pulse Resp B/P (MAP) Pulse Ox O2 Delivery O2 Flow Rate FiO2 12/31/19 09:09 149/68 12/31/19 09:02 58 12/31/19 06:00 98.0 18 98 12/30/19 18:00 Room Air I&O- Last 24 Hours up to 6 AM 12/31/19 06:00 Intake Total 1560 ml Output Total 1750 ml Balance -190 ml Laboratory Data Labs 24H Laboratory Tests 2 12/30/19 16:49: Bedside Glucose (Misc Panel) 94 12/30/19 20:31: Bedside Glucose (Misc Panel) 317H 12/31/19 05:48: Nucleated Red Blood Cells % (auto) 0.0, Anion Gap 7L, Glomerular Filtration Rate 24.3L, Calcium Level 9.2, Total Bilirubin 0.3#, Aspartate Amino Transf (AST/SGO T) 13, Alanine Aminotransferase (ALT/SGPT) 17, Alkaline Phosphatase 63, Total Protein 7.1, Albumin 3.1L, Albumin/Globulin Ratio 0.78L CBC/BMP Laboratory Tests 12/31/19 05:48 FSBS Laboratory Tests Test 12/30/19 16:49 12/30/19 20:31 Range/Units Bedside Glucose (Misc Panel) 94 317 80-115 MG/DL Microbiology Microbiology 12/30/19 Stool Occult Blood (NIMESH) - Final, Complete 12/29/19 Respiratory Virus Panel (PCR) (NIMESH) - Final, Complete Discharge Medications Scheduled Amlodipine Besylate (Amlodipine Besylate) 10 Mg Tablet, 10 MG PO DAILY Apixaban (Eliquis) 5 Mg Tablet, 5 MG PO BID Aspirin (Aspirin EC) 81 Mg Tablet.dr, 81 MG PO DAILY, (Reported) Atenolol (Atenolol) 50 Mg Tablet, 75 MG PO DAILY, (Reported) Calcium Carbonate/Vitamin D3 (Calcium 600-Vit D3 400 Tablet) 1 Each Tablet, 1 TAB PO DAILY, (Reported) Ferrous Sulfate (Ferrous Sulfate) 325 Mg Tablet, 325 MG PO DAILY, (Reported) Folic Acid/Vit B Complex and C (Super B Complex Tablet) 400 Mcg Tablet, 1 TAB PO DAILY, (Reported) Furosemide (Furosemide) 40 Mg Tablet, 1 TAB PO DAILY start taking furosemide on 01/02/20 Glyburide/Metformin HCl (Glyburide-Metformin 5-500 mg) 1 Each Tablet, 1 TAB PO BID, (Reported) Levothyroxine Sodium (Levoxyl) 50 Mcg Tablet, 50 MCG PO DAILY, (Reported) Losartan Potassium (Losartan Potassium) 100 Mg Tablet, 50 MG PO DAILY, (Reported) Metoclopramide Hcl (Reglan) 5 Mg Tablet, 5 MG PO BID, (Reported) Multivitamins (Thera M Plus Tablet) 1 Each Tablet, 1 TAB PO DAILY, (Reported) [place]-3 Fatty Acids/Fish Oil (Fish Oil 1,000 mg Capsule) 1 Each Capsule, 1,000 MG PO DAILY, (Reported) Oxybutynin Chloride (Oxybutynin Chloride ER) 10 Mg Tab.er.24, 10 MG PO DAILY, (Reported) Pravastatin Sodium (Pravastatin Sodium) 80 Mg Tablet, 80 MG PO DAILY, (Reported) Sitagliptin Phosphate (Januvia) 100 Mg Tablet, 100 MG PO DAILY, (Reported) Allergies Coded Allergies: Sulfa (Sulfonamide Antibiotics) (Verified Allergy, Unknown, itching, 12/29/19) TWIN AMBROSIO DO Dec 31, 2019 15:29
== END 2019-12-31 11:30 | disposition home or self-care (01) | DRG 291 ==
LOC: M ED 07:26 → M ED INP 13:58 → ENRESERV 14:09 → M MSPAV 14:40
PROVIDERS: ADMIT Internal Medicine; ATTEND Internal Medicine
DX: I13.0 Hypertensive heart and chronic kidney disease with heart failure and stage 1 through stage 4 chronic kidney disease, or unspecified chronic kidney disease (principal); I50.33 Acute on chronic diastolic (congestive) heart failure; N17.9 Acute kidney failure, unspecified; N18.3 Chronic kidney disease, stage 3 (moderate); I48.0 Paroxysmal atrial fibrillation; K21.9 Gastro-esophageal reflux disease without esophagitis; E11.319 Type 2 diabetes mellitus with unspecified diabetic retinopathy without macular edema; I25.10 Atherosclerotic heart disease of native coronary artery without angina pectoris; Z79.82 Long term (current) use of aspirin; Z79.899 Other long term (current) drug therapy; Z88.2 Allergy status to sulfonamides; D63.1 Anemia in chronic kidney disease; E78.00 Pure hypercholesterolemia, unspecified; E03.9 Hypothyroidism, unspecified; Z79.52 Long term (current) use of systemic steroids; G47.33 Obstructive sleep apnea (adult) (pediatric); Z95.1 Presence of aortocoronary bypass graft; Z95.2 Presence of prosthetic heart valve; I25.2 Old myocardial infarction; I16.0 Hypertensive urgency

== ENCOUNTER → 2020-01-14 | Outpatient (REF) | payer MEDICARE, OTHER ==
[~2020-01-14] MED LIST changes: +AMIO200T PO; +AMLO10TA5 PO; +ASPI81TA26 PO; +ATEN50TA2 PO; +CALC600T6 PO; +DITR1TAB PO; +ELIQ5TAB PO; +FERR1TAB8 PO; +FISH1000 PO; +FURO40TA2 PO; +GLYB5TAB12 PO; +JANU100T PO; +LASI40TA9 PO; +LEVO50TA45 PO; +LOSA100T50 PO; +MACR100C43 PO; +OXYB10TA23 PO; +PLAV1TAB2 PO; +PRAV80TA2 PO; +PRED10PA PO; +REGL5TAB2 PO; +SUPETAB44 PO; +VITMTA PO
[2020-01-14 10:03] LABS: HEMATOCRIT 28.8 % (36.0-47.0); HEMOGLOBIN 9.6 g/dl (12.0-15.5); MEAN CORPUSCULAR HEMOGLOBIN 31.9 pg (27.0-33.0); MEAN CORPUSCULAR HGB CONC 33.3 g/dl (32.0-36.5); MEAN CORPUSCULAR VOLUME 95.7 fl (80.0-96.0); PLATELET COUNT, AUTOMATED 245 10^3/uL (150-450); RED BLOOD COUNT 3.01 10^6/uL (4.00-5.40)
[2020-01-14 10:19] LABS: HEMOGLOBIN A1c 7.3 %
[2020-01-14 10:29] LABS: ALBUMIN 3.5 GM/DL (3.2-5.2); ALT/SGPT 21 U/L (12-78); BILIRUBIN,TOTAL 0.4 MG/DL (0.2-1.0); BLOOD UREA NITROGEN 37 MG/DL (7-18); C REACTIVE PROTEIN QUANTITATIV < 0.30 MG/DL (0.00-0.30); CARBON DIOXIDE LEVEL 20 MEQ/L (21-32); CHLORIDE LEVEL 110 MEQ/L (98-107); CREATININE FOR GFR 2.01 MG/DL (0.55-1.30); GLOMERULAR FILTRATION RATE 26.2 (>45); GLUCOSE, FASTING 129 MG/DL (70-100); NT-PRO BNP 1376 PG/ML (<125); POTASSIUM SERUM 4.9 MEQ/L (3.5-5.1); SODIUM LEVEL 139 MEQ/L (136-145); TOTAL PROTEIN 6.8 GM/DL (6.4-8.2)
[2020-01-14 10:33] LABS: ERYTHROCYTE SEDIMENTATION RATE 70 mm/hr (0-30)
[2020-01-14 10:36] LABS: PTH INTACT 60.2 PG/ML (18.5-88.0)
== END ==
LOC: M SFHCPLAZ 07:59
PROVIDERS: ATTEND Internal Medicine
DX: I50.32 Chronic diastolic (congestive) heart failure (principal); D63.1 Anemia in chronic kidney disease; N18.3 Chronic kidney disease, stage 3 (moderate); R70.0 Elevated erythrocyte sedimentation rate; E11.3299 Type 2 diabetes mellitus with mild nonproliferative diabetic retinopathy without macular edema, unspecified eye; Z79.899 Other long term (current) drug therapy
CPT/HCPCS: 80053; 83036; 83880; 83970; 85027; 85652; 86140; G0463

== ENCOUNTER 2020-03-01 03:46 | Observation (INO) | payer MEDICARE, OTHER ==
[~2020-03-01] VITALS: Ht 170.2 cm; Wt 85.0 kg
[2020-03-01] MEDS ORDERED: NITROGLYCERIN 2% OINT 1 GM *U/D* PKT TOP ONE (04:45)
[2020-03-01] MEDS ORDERED: FUROSEMIDE 100MG/10ML VIAL (J1940) IV ONE (04:45)
[2020-03-01 04:47] LABS: BASO % 0.3 % (0.0-1.0); EOS # 0.1 10^3/uL (0.0-0.5); EOS % 0.9 % (0.0-3.0); HEMATOCRIT 26.7 % (36.0-47.0); LYMPH # 1.1 10^3/uL (1.5-5.0); LYMPH % 7.1 % (24.0-44.0); MEAN CORPUSCULAR HEMOGLOBIN 31.7 pg (27.0-33.0); MEAN CORPUSCULAR HGB CONC 33.7 g/dl (32.0-36.5); MONO # 1.3 10^3/uL (0.0-0.8); MONO % 8.4 % (0.0-5.0); NEUTROPHILS % 82.9 % (36.0-66.0); PLATELET COUNT, AUTOMATED 278 10^3/uL (150-450); RED BLOOD COUNT 2.84 10^6/uL (4.00-5.40); WHITE BLOOD COUNT 15.6 10^3/uL (4.0-10.0)
[2020-03-01] MEDS ORDERED: FURO40TA2 PO (06:46)
[2020-03-01] MEDS ORDERED: AMLO5TAB6 PO (06:46)
[2020-03-01 06:55] LABS: BLOOD UREA NITROGEN 27 MG/DL (7-18); CALCIUM LEVEL 8.8 MG/DL (8.8-10.2); CARBON DIOXIDE LEVEL 16 MEQ/L (21-32); CHLORIDE LEVEL 112 MEQ/L (98-107); CK-MB VALUE MASS < 1.0 NG/ML (<3.6); CPK CREATINE PHOSPHOKINASE 94 U/L (26-192); CREATININE FOR GFR 1.69 MG/DL (0.55-1.30); GLUCOSE, FASTING 220 MG/DL (70-100); MB/CK RELATIVE INDEX 1.06 (< OR =4); NT-PRO BNP 3319 PG/ML (<125); POTASSIUM SERUM 4.6 MEQ/L (3.5-5.1); SODIUM LEVEL 140 MEQ/L (136-145); TROPONIN I < 0.02 NG/ML (< 0.10)
[2020-03-01] MEDS ORDERED: AMIO200T PO (07:08)
[2020-03-01 10:50] VITALS: BP 193/87
[2020-03-01] MEDS: LOSARTAN 50MG TABLET PO SCH (11:48)
[2020-03-01] MEDS: SITagliptin 50 MG TAB (JANUVIA) PO SCH (11:48)
[2020-03-01] MEDS: FERROUS SULFATE 325MG TAB PO SCH (11:48)
[2020-03-01] MEDS: LEVOTHYROXINE 50MCG TABLET (0.05MG) PO SCH (11:48)
[2020-03-01] MEDS: AMIODARONE 200 MG TAB (PACERONE) PO SCH (11:48)
[2020-03-01] MEDS: PRAVASTATIN 20 MG TAB PO SCH (11:49)
[2020-03-01] MEDS: atenoloL 25 MG TAB PO SCH (11:49)
[2020-03-01] MEDS: FUROSEMIDE 40 MG TAB PO SCH (11:49)
[2020-03-01] MEDS: MULTIVITAMINS/MINERALS THERAP 1 TAB PO SCH (11:49)
[2020-03-01] MEDS: oxyBUTYnin *DITROPAN XL* 5 MG TABCR PO SCH (11:50)
[2020-03-01] MEDS: ASPIRIN 81 MG ENTERIC TAB PO SCH (11:50)
[2020-03-01] MEDS: amLODIPine 5 MG TAB PO SCH (11:50)
[2020-03-01] MEDS: HEPARIN SOD (PORCINE) 5000UNITS/ML VIAL (J1644 PER 1000UNITS) SC SCH ×2 (11:50→20:59)
[2020-03-01] MEDS: METOCLOPRAMIDE 5 MG TAB PO SCH ×2 (11:52→20:59)
--- NOTE | 2020-03-01 13:22 | HPEPDOC ---
[facility] Medical History & Physical Date of Admission March 01, 2020 Date of Service: March 01, 2020 Primary Care Physician: Anil Tian Attending Physician: LUIS MARSHALL MD History and Physical CHIEF COMPLAINT: Shortness of breath HISTORY OF PRESENT ILLNESS: Liseth Sykes is a 69 YO F with history of diastolic CHF (LVEF 55-60% 12/2019) who presents with shortness of breath. She states the shortness of breath started suddenly around 0300 this morning. She describes it as unable to catch her breath, unable to lay flat and overall feeling of weakness. She got out of bed and drank a glass of water, which did not help, and since she did not feel better her drove her to the hospital. She does report that she forgot to take her evening Lasix yesterday afternoon at 3pm as she normally does. She was hospitalized for shortness of breath in late December 2019 and was found to have congestive heart failure exacerbation at that time. Since then, she reports that her PCP has told her take her Lasix only on Tuesday, Tuesday and Fridays. She has not been ill recently and denies any recent fevers, chills, N/V/D. She has also not noticed any new leg swelling. She reports that her weight has been steady and she has been adhering to her 1500cc/day fluid restriction as best she can. 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 Hypertension with renal disease. Chronic kidney disease, stage 3 (moderate). Atherosclerotic heart disease of [place] coronary artery without angina pectoris. Anemia in chronic kidney disease. Hypercholesterolemia. Gastro-esophageal reflux disease without esophagitis. Chronic heart failure with preserved ejection fraction. Nonrheumatic aortic (valve) stenosis. Hypothyroidism. Elevated erythrocyte sedimentation rate. Other vitamin B12 deficiency anemias. History of recurrent urinary tract infection. Obstructive sleep apnea syndrome. History of atrial fibrillation in 2010 (CHADSVaSc 6 point, stroke risk 9.7%) History of exposure to infectious disease. PAST SURGICAL HISTORY: tubal ligation 1975 cholecystectomy 1978 appendectomy 1978 D&C for heavy menstrual bleeding 1988 colonoscopy 06/22/2009 cardiac stent x6 prior to 2010 CABG 10/08/2010 SOCIAL HISTORY: Non/Never-smoker, Denies EtOH, denies any other drugs FAMILY HISTORY: Father at fairly advanced age in 2016, had CAD and dementia. Mother age 58 of cardiomyopathy. One sister is alive and is also healthy. She is grav [place] 2 para 2 with healthy children ALLERGIES: Please see below. REVIEW OF SYSTEMS: CONSTITUTIONAL: Denies weight loss, weight gain, fevers, chills, or night sweats EYES: Denies visual changes, double vision, blurry vision, floaters, or feeling like a curtain pulled down. ENT: Denies runny nose, epistaxis, sinus pain, tinnitus, sore throat, or odynophasia CARDIOVASCULAR: Denies chest pain, shortness of breath, paroxysmal nocturnal dyspnea, orthopnea, edema, or palpitations. RESPIRATORY: Reports shortness of breath, difficulty laying flat, GASTROINTESTINAL: Denies abdominal pain, difficulty swallowing, loss of appetite GENITOURINARY: Denies hematuria, polyuria, dysuria, hesitancy, or dribbling MSK: Denies joint swelling, decreased range of motion, crepitus, or new arthritis INTEGUMENTARY: Denies pruritus, rashes, or lesions NEUROLOGY: Denies any changes to sight/smell/hearing/taste, seizures, faint, headaches, paresthesias, anesthesias PSYCHIATRIC: Denies depression, anxiety, paranoia, anhedonia, or episodes of jennifer ENDOCRINE: Denies diarrhea, increased appetite, tremor, palpitations, constipation, dry skin, polydipsia, polyuria, polyphagia HEMATOLOGIC: Denies any anemia, purpura, or petechiae LYMPHATIC: Denies any new lumps or bumps anywhere HOME MEDICATIONS: Please see below. PHYSICAL EXAMINATION: VITAL SIGNS: Please see below. GENERAL APPEARANCE: Laying in bed, appears stated age, no acute distress, calm, cooperative HEENT: EOMI, PERRLA, neck is supple with no thyromegaly or lymphadenopathy RESPIRATORY: crackles are appreciated at the bases bilaterally CARDIOVASCULAR: no JVD, RRR, no murmurs/rubs/gallops, normal S1 and S2 ABDOMEN: +BS, soft, nontender to palpation in all four quadrants, no masses/organomegaly EXTREMITIES: trace pitting edema bilaterally NEUROLOGICAL: CN 2-12 intact, No obvious focal deficits PSYCHIATRIC: normal mood/affect Skin: There is an erythematous excoriated rash on the back of the neck LN: No significant cervical or inguinal lymphadenopathy LABORATORY DATA: See below. IMAGING: CXR: CHEST, SINGLE VIEW: Single view of the chest is performed and compared to prior study of 12/29/2019. There is no change since the prior exam. There is cardiomegaly with prominent vasculature and increased interstitial markings, unchanged. Findings suggest possible interstitial edema and congestive heart failure. There is calcification of the thoracic aorta. Mediastinal silhouette is unchanged. ECHO: 2D COMMENTS: 1. Normal left ventricular size and systolic function. The estimated global left ventricular systolic function is between 55-60%. Subjectively, there is mild concentric left ventricular hypertrophy. 2. Mildly enlarged left atrium. Normal right atrium and right ventricle. 3. The atrial septum appeared to be normal without evidence of defect or shunt. 4. Normal aortic root. 5. No pericardial effusion seen. 6. Moderately calcified aortic valve with decrease in leaflet excursion. Mildly calcified mitral annulus with normal anterior mitral valve leaflet motion. Normal tricuspid valve and pulmonic valve. The proximal pulmonary artery branches also appeared to be normal. 7. The inferior vena cava was normal in size, central venous pressure might be normal. DOPPLER: It detects trace aortic regurgitation, mild mitral regurgitation, mild tricuspid regurgitation, and mild pulmonic regurgitation. The calculated pulmonary artery systolic pressure varies between 40-50 mmHg. IMPRESSION: 1. Normal global left ventricular systolic function with probably mild concentric left ventricular hypertrophy. 2. Aortic valve sclerosis with trace aortic regurgitation and probably moderate aortic stenosis. 3. Mitral annulus calcification with mild mitral regurgitation and a mildly enlarged left atrium. 4. Mild tricuspid regurgitation with moderate pulmonary hypertension. The right heart chambers appeared to be normal in size. 5. Mild pulmonic regurgitation. MICROBIOLOGY: Please see below. ASSESSMENT: This is a 69 YO F with diastolic CHF (LVEF 55-60%, 12/2019) who presents with shortness of breath and difficulty laying flat in setting of medication noncompliance found to have acute decompensated CHF requiring diuresis. PLAN: 1. Acute diastolic Congestive heart failure exacerbation: likely 2/2 noncompli ance with low sodium/fluid restricted diet -100mg IV lasix given in ED. Symptoms improved at time of examination -IV lasix 40mg daily continued -Strict I/O -Daily weights -2g sodium diet with 1500cc fluid restriction 2. Atherosclerotic heart disease: Had Non-Q-wave KS 11/09, and had a stent placed. LV function normal. Another stent placed in 03/09 after abnormal stress test, another stent 06/2010 (OM2) after abnormal stress test 05/2010. An RCA stent was placed in 09/2010, and she had a robotic LAD/diagonal bypass 10/2010. Last cardiac catheterization was in 08/2011 at which time she had a D1 stent placed. Last stress test 07/2013 and she has no symptoms of recurrent disease. Last LVEF normal at 07/2013 stress test study (64%), and it was 60-65% when she had her echo in March 2019. Has no angina. -Continue home statin, ASA, Beta ankur 3. CKD stage 3: renal function stable -Will continue to monitor 4. Hx AF: Patient is currently in NSR and per EMR has not had AF since 2010: -Continue Amiodarone 5. GERD: -Continue home Reglan 6. DM2: -Continue Januvia DVT ppx: SQH DISPO: pending diuresis, possible dc within 24-48h Vital Signs Vital Signs Date Time Temp Pulse Resp B/P (MAP) Pulse Ox O2 Delivery O2 Flow Rate FiO2 03/01/20 07:35 134/70 (91) 03/01/20 07:31 56 99 03/01/20 04:09 Nasal Cannula 2.0 03/01/20 03:46 97.5 22 Laboratory Data Labs 24H Laboratory Tests 2 03/01/20 04:25: Immature Granulocyte % (Auto) 0.4, Neutrophils (%) (Auto) 82.9H, Lymphocytes (%) (Auto) 7.1L, Monocytes (%) (Auto) 8.4H, Eosinophils (%) (Auto) 0.9, Basophils (%) (Auto) 0.3, Neutrophils # (Auto) 13.0H, Lymphocytes # (Auto) 1.1L, Monocytes # (Auto) 1.3H, Eosinophils # (Auto) 0.1, Basophils # (Auto) 0.0, Nucleated Red Blood Cells % (auto) 0.0 03/01/20 04:44: POC pH (Misc Panel) 7.357, POC Base Excess (Misc Panel) -10.0L, POC Saturated Percent O2 (Misc) 93L, POC pO2 (Misc Panel) 68.0L, POC pCO2 (Misc Panel) 28.1L, POC HCO3 (Misc Panel) 15.8L, POC Total CO2 (Misc Panel) 17.0L 5/30/20 05:33: Anion Gap 12, Glomerular Filtration Rate 32.0L, Calcium Level 8.8, Total Creatine Kinase 94, Creatine Kinase MB < 1.0, Creatine Kinase MB Relative Index 1.06, Troponin I < 0.02, WD-Dgf-G-Type Natriuretic Peptide 3319H CBC/BMP Laboratory Tests 03/01/20 04:25 03/01/20 05:33 Home Medications Scheduled Amiodarone HCl (Amiodarone HCl) 200 Mg Tablet, 200 MG PO DAILY Amlodipine Besylate (Amlodipine Besylate) 5 Mg Tablet, 5 MG PO DAILY Aspirin (Aspirin EC) 81 Mg Tablet.dr, 81 MG PO DAILY Atenolol (Atenolol) 50 Mg Tablet, 75 MG PO DAILY Calcium Carbonate/Vitamin D3 (Calcium 600-Vit D3 400 Tablet) 1 Each Tablet, 1 TAB PO DAILY Ferrous Sulfate (Ferrous Sulfate) 325 Mg Tablet, 325 MG PO DAILY Folic Acid/Vit B Complex and C (Super B Complex Tablet) 400 Mcg Tablet, 1 TAB PO DAILY Furosemide (Furosemide) 40 Mg Tablet, 40 MG PO DAILY Glyburide/Metformin HCl (Glyburide-Metformin 5-500 mg) 1 Each Tablet, 1 TAB PO BID Levothyroxine Sodium (Levoxyl) 50 Mcg Tablet, 50 MCG PO DAILY Losartan Potassium (Losartan Potassium) 100 Mg Tablet, 100 MG PO DAILY Metoclopramide Hcl (Reglan) 5 Mg Tablet, 5 MG PO BID BEFORE BREAKFAST AND AT BEDTIME Multivitamins (Thera M Plus Tablet) 1 Each Tablet, 1 TAB PO DAILY [place]-3 Fatty Acids/Fish Oil (Fish Oil 1,000 mg Capsule) 1 Each Capsule, 1,000 MG PO DAILY Oxybutynin Chloride (Oxybutynin Chloride ER) 10 Mg Tab.er.24, 10 MG PO DAILY Pravastatin Sodium (Pravastatin Sodium) 80 Mg Tablet, 80 MG PO DAILY Sitagliptin Phosphate (Januvia) 100 Mg Tablet, 100 MG PO DAILY Allergies Coded Allergies: Sulfa (Sulfonamide Antibiotics) (Verified Allergy, Unknown, itching, 12/29/19) A-FIB/CHADSVASC A-FIB History Current/History of A-Fib/PAF?: No Current PO Anticoag Therapy: No GME ATTESTATION GME ATTESTATION My faculty preceptor for this patient encounter was physically present during the encounter and was fully available. All aspects of the patient interview, examination, medical decision making process, and medical care plan development were reviewed and approved by the faculty preceptor. The faculty preceptor is aware and concurs with the plan as stated in the body of this note and will attest to such by his/her cosignature. ROBE LIZARRAGA MD March 01, 2020 08:52
--- NOTE | 2020-03-01 13:37 | REP ---
CHEST, SINGLE VIEW: Single view of the chest is performed and compared to prior study of 12/29/2019. There is no change since the prior exam. There is cardiomegaly with prominent vasculature and increased interstitial markings, unchanged. Findings suggest possible interstitial edema and congestive heart failure. There is calcification of the thoracic aorta. Mediastinal silhouette is unchanged. Electronically Signed by Linus Long MD 03/01/2020 09:42 P
[2020-03-01 14:00] VITALS: BP 165/69
[2020-03-01] MEDS: ACETAMINOPHEN TAB 650MG DOSE (2X325MG) PO PRN (14:06)
[2020-03-01] MEDS ORDERED: THERAPEUTIC BATH LOTION 240 ML BTL TOP PRN (14:15)
[2020-03-01 22:00] VITALS: BP 164/70
[2020-03-02 02:00] VITALS: BP 171/64
[2020-03-02] MEDS: LEVOTHYROXINE 50MCG TABLET (0.05MG) PO SCH (05:40)
[2020-03-02] MEDS: ACETAMINOPHEN TAB 650MG DOSE (2X325MG) PO PRN (05:40)
[2020-03-02 06:00] VITALS: BP 167/67
[2020-03-02 06:58] LABS: HEMATOCRIT 24.3 % (36.0-47.0); HEMOGLOBIN 8.3 g/dl (12.0-15.5); MEAN CORPUSCULAR HEMOGLOBIN 31.6 pg (27.0-33.0); MEAN CORPUSCULAR HGB CONC 34.2 g/dl (32.0-36.5); MEAN CORPUSCULAR VOLUME 92.4 fl (80.0-96.0); PLATELET COUNT, AUTOMATED 267 10^3/uL (150-450); RED BLOOD COUNT 2.63 10^6/uL (4.00-5.40)
[2020-03-02 07:19] LABS: CALCIUM LEVEL 8.5 MG/DL (8.8-10.2); CREATININE FOR GFR 1.88 MG/DL (0.55-1.30); GLOMERULAR FILTRATION RATE 28.3 (>45); MAGNESIUM LEVEL 1.7 MG/DL (1.8-2.4); POTASSIUM SERUM 4.5 MEQ/L (3.5-5.1)
[2020-03-02] MEDS: MAG SULF 1GM/100ML (MAG RUN) 1 GM in IV 1 EA IV SCH ×2 (09:14→09:25)
[2020-03-02] MEDS: LOSARTAN 50MG TABLET PO SCH (09:14)
[2020-03-02] MEDS: MULTIVITAMINS/MINERALS THERAP 1 TAB PO SCH (09:14)
[2020-03-02] MEDS: ASPIRIN 81 MG ENTERIC TAB PO SCH (09:15)
[2020-03-02] MEDS: oxyBUTYnin *DITROPAN XL* 5 MG TABCR PO SCH (09:15)
[2020-03-02] MEDS: AMIODARONE 200 MG TAB (PACERONE) PO SCH (09:15)
[2020-03-02] MEDS: FERROUS SULFATE 325MG TAB PO SCH (09:15)
[2020-03-02] MEDS: atenoloL 25 MG TAB PO SCH (09:15)
[2020-03-02] MEDS: SITagliptin 50 MG TAB (JANUVIA) PO SCH (09:15)
[2020-03-02] MEDS: PRAVASTATIN 20 MG TAB PO SCH (09:15)
[2020-03-02 09:16] VITALS: BP 167/67
[2020-03-02] MEDS: amLODIPine 5 MG TAB PO SCH (09:16)
[2020-03-02] MEDS: METOCLOPRAMIDE 5 MG TAB PO SCH (09:16)
[2020-03-02] MEDS: FUROSEMIDE 40 MG TAB PO SCH (09:16)
[2020-03-02] MEDS: HEPARIN SOD (PORCINE) 5000UNITS/ML VIAL (J1644 PER 1000UNITS) SC SCH (09:16)
[2020-03-02 10:00] VITALS: BP 174/67
[2020-03-02 14:00] VITALS: BP 164/69
--- NOTE | 2020-03-02 14:13 | DS.PDOC ---
Discharge Summary General Date of Admission March 01, 2020 at 03:47 Date of Discharge 03/02/20 Attending Physician: LUIS MARSHALL MD Discharge Summary PROCEDURES PERFORMED DURING STAY: None. ADMITTING DIAGNOSES: 1. Acute on chronic diastolic congestive heart failure, acute on chronic kidney disease. DISCHARGE DIAGNOSES: 1. Acute on chronic diastolic congestive heart failure, acute on chronic kidney disease. COMPLICATIONS/CHIEF COMPLAINT: Chf Exacerbation,Chronic Kidney Disease Stageiii. HISTORY OF PRESENT ILLNESS: 69-year-old female with past medical history of congestive heart failure with preserved ejection fraction, chronic kidney disease and hypertension was admitted for acute on chronic diastolic congestive heart failure, likely secondary to severe hypertension and medication noncompliance. Patient received 100 mg of IV Lasix in the ER with good urine output, seen in the morning today and clinically back to her baseline. Patient's creatinine did have a slight uptick, likely due to the IV Lasix she received in the ER yesterday, suspect the renal function will return back to her baseline once she restarts her oral Lasix. Patient will be discharged with close follow with PCP and filler shredding machine loader, she is agreeable with this plan. HOSPITAL COURSE: As above. DISCHARGE MEDICATIONS: Please see below. ALLERGIES: Please see below. PHYSICAL EXAMINATION: VITAL SIGNS: Please see below. GENERAL: No distress HEENT: Normocephalic, atraumatic, moist mucous membranes NECK: Supple CARDIOVASCULAR EXAMINATION: S1, S2, no murmurs RESPIRATORY EXAMINATION: Scattered rhonchi, diminished in the bases, no wheezing ABDOMINAL EXAMINATION: Soft, nontender, nondistended, positive bowel sounds EXTREMITIES: Trace edema SKIN: No rash NEUROLOGICAL EXAMINATION: Alert and oriented 3, no focal deficits PSYCHIATRIC EXAMINATION: Calm and cooperative LABORATORY DATA: Please see below. PROGNOSIS: Fair ACTIVITY: As tolerated. DIET: Cardiac with 1500 mL per day fluid restriction DISCHARGE PLAN: Follow with PCP and filler shredding machine loader in 1-2 weeks DISPOSITION: Home. DISCHARGE INSTRUCTIONS: 1. As above. DISCHARGE CONDITION: Stable. TIME SPENT ON DISCHARGE: Greater than 33 minutes. Vital Signs/I&Os Vital Signs Date Time Temp Pulse Resp B/P (MAP) Pulse Ox O2 Delivery O2 Flow Rate FiO2 03/02/20 10:00 99.0 54 17 174/67 (102) 95 Room Air 03/01/20 10:50 2.0 I&O- Last 24 Hours up to 6 AM 03/02/20 06:00 Intake Total 780 ml Output Total 1600 ml Balance -820 ml Laboratory Data Labs 24H Laboratory Tests 2 03/02/20 06:26: Nucleated Red Blood Cells % (auto) 0.0, Anion Gap 7L, Glomerular Filtration Rate 28.3L, Calcium Level 8.5L, Magnesium Level 1.7L CBC/BMP Laboratory Tests 03/02/20 06:26 Discharge Medications Scheduled Amiodarone HCl (Amiodarone HCl) 200 Mg Tablet, 200 MG PO DAILY, (Reported) Amlodipine Besylate (Amlodipine Besylate) 5 Mg Tablet, 5 MG PO DAILY, (Reported) Aspirin (Aspirin EC) 81 Mg Tablet.dr, 81 MG PO DAILY, (Reported) Atenolol (Atenolol) 50 Mg Tablet, 75 MG PO DAILY, (Reported) Calcium Carbonate/Vitamin D3 (Calcium 600-Vit D3 400 Tablet) 1 Each Tablet, 1 TAB PO DAILY, (Reported) Ferrous Sulfate (Ferrous Sulfate) 325 Mg Tablet, 325 MG PO DAILY, (Reported) Folic Acid/Vit B Complex and C (Super B Complex Tablet) 400 Mcg Tablet, 1 TAB PO DAILY, (Reported) Furosemide (Furosemide) 40 Mg Tablet, 40 MG PO DAILY, (Reported) Glyburide/Metformin HCl (Glyburide-Metformin 5-500 mg) 1 Each Tablet, 1 TAB PO BID, (Reported) Levothyroxine Sodium (Levoxyl) 50 Mcg Tablet, 50 MCG PO DAILY, (Reported) Losartan Potassium (Losartan Potassium) 100 Mg Tablet, 100 MG PO DAILY, (Reported) Metoclopramide Hcl (Reglan) 5 Mg Tablet, 5 MG PO BID, (Reported) BEFORE BREAKFAST AND AT BEDTIME Multivitamins (Thera M Plus Tablet) 1 Each Tablet, 1 TAB PO DAILY, (Reported) [place]-3 Fatty Acids/Fish Oil (Fish Oil 1,000 mg Capsule) 1 Each Capsule, 1,000 MG PO DAILY, (Reported) Oxybutynin Chloride (Oxybutynin Chloride ER) 10 Mg Tab.er.24, 10 MG PO DAILY, (Reported) Pravastatin Sodium (Pravastatin Sodium) 80 Mg Tablet, 80 MG PO DAILY, (Reported) Sitagliptin Phosphate (Januvia) 100 Mg Tablet, 100 MG PO DAILY, (Reported) Allergies Coded Allergies: Sulfa (Sulfonamide Antibiotics) (Verified Allergy, Unknown, itching, 12/29/19) LUIS MARSHALL MD March 02, 2020 14:13
--- NOTE | 2020-03-02 19:40 | ECGEPIP ---
[facility] - ED Test Date: 2020-03-01 Pat Name: MIHAI MILNER Department: Room: - Gender: Female Echo Technician: tamika : 1950 Requested By: ELILA KOWALSKI Order Number: [id number] Reading MD: Jenise Torres Measurements Intervals [place] Rate: 65 P: 75 [place]: 279 QRS: -14 QRSD: 113 T: 31 QT: 430 QTc: 449 Interpretive Statements SINUS RHYTHM WITH FIRST DEGREE AV BLOCK MODERATE INTRAVENTRICULAR CONDUCTION DELAY LVH NSTTW abnormalities INCREASED RATE 12/29/19 Electronically Signed on 03-02-2020 19:40:18 EDT by Jenise Torres
== END 2020-03-02 15:00 | disposition home or self-care (01) ==
LOC: M ED 03:46 → M ED INP 03:47 → ENRESERV 09:44 → M MS5PR 10:45
PROVIDERS: ADMIT Internal Medicine; ATTEND Internal Medicine
DX: I50.33 Acute on chronic diastolic (congestive) heart failure (principal); N17.9 Acute kidney failure, unspecified; N18.3 Chronic kidney disease, stage 3 (moderate); I13.0 Hypertensive heart and chronic kidney disease with heart failure and stage 1 through stage 4 chronic kidney disease, or unspecified chronic kidney disease; R06.02 Shortness of breath; E11.3219 Type 2 diabetes mellitus with mild nonproliferative diabetic retinopathy with macular edema, unspecified eye; E11.22 Type 2 diabetes mellitus with diabetic chronic kidney disease; I25.10 Atherosclerotic heart disease of native coronary artery without angina pectoris; E78.00 Pure hypercholesterolemia, unspecified; I35.0 Nonrheumatic aortic (valve) stenosis; E03.9 Hypothyroidism, unspecified; D51.0 Vitamin B12 deficiency anemia due to intrinsic factor deficiency; G47.33 Obstructive sleep apnea (adult) (pediatric); Z87.440 Personal history of urinary (tract) infections; I48.91 Unspecified atrial fibrillation; K21.9 Gastro-esophageal reflux disease without esophagitis; I25.2 Old myocardial infarction; Z95.5 Presence of coronary angioplasty implant and graft; Z95.1 Presence of aortocoronary bypass graft; Z79.899 Other long term (current) drug therapy; Z79.84 Long term (current) use of oral hypoglycemic drugs; Z88.2 Allergy status to sulfonamides
CPT/HCPCS: 36415; 36600; 71045; 80048; 82550; 82553; 82803; 83735; 83880; 84484; 85025; 85027; 93005; 96372; 96374; 99285; G0378; J1644; J1940; J3475

== ENCOUNTER → 2020-04-10 | Outpatient (CLI) | payer MEDICARE, OTHER ==
[~2020-04-10] MED LIST changes: -AMIO200T PO; +AMIO200T3 PO; -AMLO10TA5 PO; +AMLO1TAB24 PO; +AMLO1TAB25 PO; +CALC600T17 PO; -CALC600T6 PO
[2020-04-10 14:35] LABS: HEMATOCRIT 29.2 % (36.0-47.0); HEMOGLOBIN 9.4 g/dl (12.0-15.5); MEAN CORPUSCULAR HGB CONC 32.2 g/dl (32.0-36.5); MEAN CORPUSCULAR VOLUME 96.4 fl (80.0-96.0); PLATELET COUNT, AUTOMATED 220 10^3/uL (150-450); RED BLOOD COUNT 3.03 10^6/uL (4.00-5.40); WHITE BLOOD COUNT 6.8 10^3/uL (4.0-10.0)
[2020-04-10 15:00] LABS: ALBUMIN 3.7 GM/DL (3.2-5.2); BILIRUBIN,TOTAL 0.4 MG/DL (0.2-1.0); CREATININE FOR GFR 2.11 MG/DL (0.55-1.30); GLOMERULAR FILTRATION RATE 24.8 (>45); MAGNESIUM LEVEL 2.3 MG/DL (1.8-2.4); POTASSIUM SERUM 4.5 MEQ/L (3.5-5.1); THYROID STIMULATING HORMONE 2.71 uIU/ML (0.358-3.740); TOTAL PROTEIN 7.2 GM/DL (6.4-8.2)
== END ==
LOC: M PLALAB 09:05
PROVIDERS: ATTEND Internal Medicine Cardiovascular Disease
DX: I50.32 Chronic diastolic (congestive) heart failure (principal); I48.0 Paroxysmal atrial fibrillation

== ENCOUNTER → 2020-04-21 | Outpatient (REF) | payer MEDICARE, OTHER ==
[2020-04-21 18:09] LABS: PERCENT SATURATION 23.6 % (13.2-45.0)
== END ==
LOC: M LAB REF 16:42
PROVIDERS: ATTEND Internal Medicine Nephrology
DX: D50.9 Iron deficiency anemia, unspecified (principal)

== ENCOUNTER → 2020-05-09 | Outpatient (REF) | payer MEDICARE, OTHER ==
[2020-06-07 04:25] LABS: ERYTHROCYTE SEDIMENTATION RATE 68 mm/hr (0-30); HEMATOCRIT 27.8 % (36.0-47.0); MEAN CORPUSCULAR HEMOGLOBIN 30.9 pg (27.0-33.0); MEAN CORPUSCULAR HGB CONC 32.4 g/dl (32.0-36.5); MEAN CORPUSCULAR VOLUME 95.5 fl (80.0-96.0); PLATELET COUNT, AUTOMATED 209 10^3/uL (150-450); RED BLOOD COUNT 2.91 10^6/uL (4.00-5.40)
[2020-06-23 09:46] LABS: ALBUMIN 3.4 GM/DL (3.2-5.2); BILIRUBIN,TOTAL 0.3 MG/DL (0.2-1.0); C REACTIVE PROTEIN QUANTITATIV 0.86 MG/DL (0.00-0.30); CALCIUM LEVEL 8.9 MG/DL (8.8-10.2); CHOLESTEROL RISK RATIO 5.06 (<5); CREATININE FOR GFR 2.06 MG/DL (0.55-1.30); GLOMERULAR FILTRATION RATE 25.4 (>45); POTASSIUM SERUM 4.5 MEQ/L (3.5-5.1); PTH INTACT 60.7 PG/ML (18.5-88.0); THYROID STIMULATING HORMONE 2.28 uIU/ML (0.358-3.740); TOTAL PROTEIN 6.6 GM/DL (6.4-8.2)
[2020-06-23 09:47] LABS: HEMOGLOBIN A1c 6.6 %
== END ==
LOC: M SFHCPLAZ 14:25
PROVIDERS: ATTEND Internal Medicine
DX: N18.3 Chronic kidney disease, stage 3 (moderate) (principal); E11.3299 Type 2 diabetes mellitus with mild nonproliferative diabetic retinopathy without macular edema, unspecified eye; D63.1 Anemia in chronic kidney disease; I50.32 Chronic diastolic (congestive) heart failure; E03.9 Hypothyroidism, unspecified; R70.0 Elevated erythrocyte sedimentation rate

== ENCOUNTER → 2020-06-23 | Outpatient (CLI) | payer MEDICARE, OTHER ==
[2020-06-23 14:41] LABS: ALBUMIN 3.3 GM/DL (3.2-5.2); CALCIUM LEVEL 9.1 MG/DL (8.8-10.2); CREATININE FOR GFR 2.04 MG/DL (0.55-1.30); GLOMERULAR FILTRATION RATE 25.7 (>45); MAGNESIUM LEVEL 2.2 MG/DL (1.8-2.4); PHOSPHORUS LEVEL 4.8 MG/DL (2.5-4.9); POTASSIUM SERUM 4.8 MEQ/L (3.5-5.1)
== END ==
LOC: M PLALAB 09:25
PROVIDERS: ATTEND Internal Medicine Cardiovascular Disease
DX: I50.32 Chronic diastolic (congestive) heart failure (principal)

== ENCOUNTER → 2020-06-26 | Outpatient (REF) | payer MEDICARE, OTHER ==
[2020-06-26 19:17] LABS: PERCENT SATURATION 7.4 % (13.2-45.0)
== END ==
LOC: M LAB REF 17:28
PROVIDERS: ATTEND Internal Medicine Nephrology
DX: D50.9 Iron deficiency anemia, unspecified (principal)

== ENCOUNTER → 2020-06-30 | Outpatient (CLI) | payer MEDICARE, OTHER ==
--- NOTE | 2020-07-09 15:09 | REP ---
URINARY TRACT SONOGRAPHY HISTORY: Chronic kidney disease stage IV. FINDINGS: Scanning at the level of the urinary bladder shows no intravesical lesion. Renal cortical echogenicity pattern is felt to be slightly increased bilaterally consistent with chronic medial renal disease. There is no evidence of hydronephrosis on either side. There is a 0.8 cm cyst at the lower pole of the right kidney. No mass or calculus is seen on either side. The right kidney measures 10.3 x 4.4 x 4.7 cm. Left renal dimensions are 10.8 x 4.7 x 5.2 cm. IMPRESSION: Small cyst right kidney. Increased renal cortical echogenicity pattern bilaterally consistent with chronic medical renal disease. Otherwise negative. MTDD
== END ==
LOC: M RAD 13:43
PROVIDERS: ATTEND Internal Medicine Nephrology
DX: N18.4 Chronic kidney disease, stage 4 (severe) (principal); N28.1 Cyst of kidney, acquired

== ENCOUNTER → 2020-07-24 | Outpatient (REF) | payer MEDICARE, OTHER ==
[2020-07-24 18:03] LABS: THYROID STIMULATING HORMONE 2.92 uIU/ML (0.358-3.740)
== END ==
LOC: M LAB REF 16:49
PROVIDERS: ATTEND Internal Medicine Cardiovascular Disease
DX: I50.32 Chronic diastolic (congestive) heart failure (principal)

== ENCOUNTER 2020-08-07 10:30 | Outpatient (CLI) | payer MEDICARE, OTHER ==
[~2020-08-07] VITALS: Ht 170.2 cm; Wt 86.0 kg
[2020-08-07 10:53] VITALS: BP 177/74
[2020-08-07] MEDS ORDERED: diphenhydrAMINE 50MG/ML VIAL (J1200) IV PRN (11:30)
[2020-08-07] MEDS ORDERED: EPINEPHrine INJ 1 MG/ML 1ML AMP IM PRN (11:30)
[2020-08-07] MEDS ORDERED: FERRIC CARBOXYMALTOSE INJ 750 MG in NS 250 ML IV ONE (11:30)
[2020-08-07] MEDS ORDERED: methylPREDNISolone 125MG 2ML VIAL IV PRN (11:30)
[2020-08-07] MEDS ORDERED: ALBUTEROL SULFATE 2.5 MG/0.5 ML INH NEB SOLN INH PRN (11:30)
[2020-08-07] MEDS ORDERED: NS 1,000 ML IV SCH (11:30)
[2020-08-07 12:31] VITALS: BP 152/70
== END 2020-08-07 12:30 | disposition home or self-care (01) ==
LOC: M INFU 10:30
PROVIDERS: ATTEND Internal Medicine Nephrology
DX: D50.0 Iron deficiency anemia secondary to blood loss (chronic) (principal); Z88.2 Allergy status to sulfonamides
CPT/HCPCS: 90471; 90682; 96365; J1439

== ENCOUNTER → 2020-09-29 | Outpatient (REF) | payer MEDICARE, OTHER ==
[2020-09-29 13:37] LABS: ALBUMIN 3.8 GM/DL (3.2-5.2); BILIRUBIN,TOTAL 0.4 MG/DL (0.2-1.0); CALCIUM LEVEL 9.3 MG/DL (8.8-10.2); CHOLESTEROL RISK RATIO 5.151 (<5); CREATININE FOR GFR 2.7 MG/DL (0.55-1.30); GLOMERULAR FILTRATION RATE 18.6 (>45); POTASSIUM SERUM 4.5 MEQ/L (3.5-5.1); THYROID STIMULATING HORMONE 4.27 uIU/ML (0.358-3.740); TOTAL PROTEIN 7.3 GM/DL (6.4-8.2)
[2020-09-29 14:44] LABS: HEMOGLOBIN A1c 6.8 %
== END ==
LOC: M PLALAB 09:01
PROVIDERS: ATTEND Internal Medicine
DX: I12.9 Hypertensive chronic kidney disease with stage 1 through stage 4 chronic kidney disease, or unspecified chronic kidney disease (principal); E11.3299 Type 2 diabetes mellitus with mild nonproliferative diabetic retinopathy without macular edema, unspecified eye; I25.10 Atherosclerotic heart disease of native coronary artery without angina pectoris; E03.9 Hypothyroidism, unspecified

== ENCOUNTER → 2020-10-06 | Outpatient (REF) | payer MEDICARE, OTHER | LOC: M LAB REF 16:53 | PROVIDERS: ATTEND Internal Medicine Nephrology | DX: D50.9 Iron deficiency anemia, unspecified (principal) ==

== ENCOUNTER → 2020-10-21 | Outpatient (CLI) | payer MEDICARE, OTHER ==
--- NOTE | 2020-10-21 11:16 | REPMRS ---
Patient History The patient states she has not had a clinical breast exam in over a year. No known family history of cancer. Took hormonal contraceptives for 10 years. Took unspecified hormones for 10 years. 3D TOMOSYNTHESIS WAS PERFORMED. [facility] for [facility] 2.[facility]%. Volpara breast density c. Digital Woman Screen Mammo: October 21, 2020 - Exam #: [id number] Bilateral CC and MLO view(s) were taken. Technologist: Janki Burgess, Technologist Prior study comparison: October 18, 2019, bilateral digital woman screen mammo performed at [facility]. October 12, 2018, bilateral digital woman screen mammo performed at [facility]. FINDINGS: The breast tissue is heterogeneously dense. This may lower the sensitivity of mammography. There has been no change in the appearance of the mammogram from the prior studies. There is a moderate amount of residual fibroglandular tissue which is fairly symmetric. There is no interval development of dominant mass, areas of architectural distortion, or clustered microcalcification typical of malignancy. Assessment: BI-RADS/ACR category 1 mammogram. Negative Mammogram. Recommendation Routine screening mammogram in 1 year (for women over age 40). This mammogram was interpreted with the aid of an FDA-approved computer-aided dectection system. Electronically Signed By: Linus Long MD 10/21/20 [id number]
== END ==
LOC: M WHC 10:11
PROVIDERS: ATTEND Internal Medicine
DX: Z12.31 Encounter for screening mammogram for malignant neoplasm of breast (principal); Z92.0 Personal history of contraception

== ENCOUNTER → 2020-12-04 | Outpatient (REF) | payer MEDICARE, OTHER ==
[2020-12-04 18:39] LABS: PERCENT SATURATION 20.1 % (13.2-45.0)
== END ==
LOC: M LAB REF 17:04
PROVIDERS: ATTEND Internal Medicine Nephrology
DX: D50.9 Iron deficiency anemia, unspecified (principal)

== ENCOUNTER → 2021-01-27 | Outpatient (REF) | payer MEDICARE, OTHER ==
[2021-01-27 13:53] LABS: MALB URINE SIEMENS 25.2 MG/L; MAU/CREAT RATIO 66.3 MCG/MG (0.0-30.0)
[2021-01-27 13:55] LABS: CHOLESTEROL RISK RATIO 4.441 (<5); THYROID STIMULATING HORMONE 1.87 uIU/ML (0.358-3.740)
[2021-01-27 14:13] LABS: HEMOGLOBIN A1c 6.3 %
== END ==
LOC: M SFHCPLAZ 10:16
PROVIDERS: ATTEND Internal Medicine
DX: E11.3299 Type 2 diabetes mellitus with mild nonproliferative diabetic retinopathy without macular edema, unspecified eye (principal); E03.9 Hypothyroidism, unspecified; E78.00 Pure hypercholesterolemia, unspecified; Z79.899 Other long term (current) drug therapy
CPT/HCPCS: 36415; 80061; 82043; 83036; 84443; G0463

== ENCOUNTER → 2021-02-09 | Outpatient (REF) | payer MEDICARE, OTHER | LOC: M LAB REF 17:25 | PROVIDERS: ATTEND Internal Medicine Nephrology | DX: N39.0 Urinary tract infection, site not specified (principal) ==

== ENCOUNTER → 2021-03-10 | Outpatient (REF) | payer MEDICARE, OTHER ==
[2021-03-10 18:08] LABS: PERCENT SATURATION 21.1 % (13.2-45.0)
== END ==
LOC: M LAB REF 16:54
PROVIDERS: ATTEND Internal Medicine Nephrology
DX: D50.9 Iron deficiency anemia, unspecified (principal)

== ENCOUNTER → 2021-04-09 | Outpatient (REF) | payer MEDICARE, OTHER | LOC: M LAB REF 16:46 | PROVIDERS: ATTEND Internal Medicine Nephrology | DX: E83.42 Hypomagnesemia (principal) ==

== ENCOUNTER → 2021-05-13 | Outpatient (REF) | payer MEDICARE, OTHER ==
[2021-05-13 14:35] LABS: MAGNESIUM LEVEL 2.4 MG/DL (1.8-2.4); PERCENT SATURATION 20.3 % (13.2-45.0)
== END ==
LOC: M LAB REF 12:59
PROVIDERS: ATTEND Internal Medicine Nephrology
DX: D50.9 Iron deficiency anemia, unspecified (principal); N18.4 Chronic kidney disease, stage 4 (severe); E83.42 Hypomagnesemia

== ENCOUNTER 2021-05-30 05:53 | Emergency (ER) | payer MEDICARE, OTHER ==
[~2021-05-30] VITALS: Ht 170.2 cm; Wt 89.6 kg
[2021-05-30] MEDS ORDERED: CARVedilol 6.25 MG TAB PO ONE (08:05)
[2021-05-30] MEDS ORDERED: **hydrALAZINE** 50 MG TAB PO ONE (08:05)
[2021-05-30] MEDS ORDERED: ASPIRIN 81 MG CHEW TABLET PO ONE (08:05)
[2021-05-30] MEDS ORDERED: CLOPIDOGREL 75 MG TAB PO ONE (08:05)
--- NOTE | 2021-05-30 08:10 | REP ---
INDICATION: CHEST PAIN COMPARISON: 02/03/2020 TECHNIQUE: PA and lateral. FINDINGS: Mild bibasilar atelectasis and small pleural reactions (right greater than left). Stable cardiomegaly and diffuse chronic interstitial changes. No pneumothorax. Skeletal structures intact. IMPRESSION: 1. Bibasilar atelectasis and small pleural reactions. 2. Relatively chronic appearing changes throughout the lung warren. Differential diagnosis may include acute interstitial process. <Electronically signed by Torres Rutherford > 05/30/21 [id number]
[2021-05-30 08:16] VITALS: BP 157/73
[2021-05-30 08:19] LABS: BASO % 0.2 % (0.0-1.0); EOS % 0.1 % (0.0-3.0); HEMATOCRIT 26.6 % (36.0-47.0); HEMOGLOBIN 8.8 g/dl (12.0-15.5); LYMPH # 1.2 10^3/uL (1.5-5.0); LYMPH % 9.5 % (24.0-44.0); MEAN CORPUSCULAR HEMOGLOBIN 30.2 pg (27.0-33.0); MEAN CORPUSCULAR HGB CONC 33.1 g/dl (32.0-36.5); MEAN CORPUSCULAR VOLUME 91.4 fl (80.0-96.0); MONO # 0.9 10^3/uL (0.0-0.8); MONO % 7.2 % (2.0-8.0); NEUTROPHILS # 10.5 10^3/uL (1.5-8.5); NEUTROPHILS % 82.4 % (36.0-66.0); PLATELET COUNT, AUTOMATED 297 10^3/uL (150-450); RED BLOOD COUNT 2.91 10^6/uL (4.00-5.40); WHITE BLOOD COUNT 12.7 10^3/uL (4.0-10.0)
[2021-05-30 09:00] LABS: ALBUMIN 3.4 GM/DL (3.2-5.2); BILIRUBIN,DIRECT 0.2 MG/DL (0.0-0.2); BILIRUBIN,TOTAL 0.9 MG/DL (0.2-1.0); CK-MB VALUE MASS 3.2 NG/ML (<3.6); CREATININE FOR GFR 2.46 MG/DL (0.55-1.30); FREE T4 0.99 NG/DL (0.76-1.46); GLOMERULAR FILTRATION RATE 20.7 (>45); MB/CK RELATIVE INDEX 2.04 (< OR =4); POTASSIUM SERUM 4.3 MEQ/L (3.5-5.1); THYROID STIMULATING HORMONE 1.86 uIU/ML (0.358-3.740); TROPONIN I 0.59 NG/ML (< 0.10)
[2021-05-30 11:20] LABS: CK-MB VALUE MASS 5.7 NG/ML (<3.6); MB/CK RELATIVE INDEX 3.61 (< OR =4); TROPONIN I 1.64 NG/ML (< 0.10)
[2021-05-30] MEDS ORDERED: AMIODARONE HCL 150 MG in IV 1 EA IV STA ×2 (11:30→13:01)
[2021-05-30] MEDS ORDERED: HEPARIN DRIP 25,000 UNITS in IV 1 EA IV SCH (11:35)
[2021-05-30] MEDS ORDERED: HEPARIN SOD (PORCINE) 5000UNITS/ML 1ML VIAL/SYRINGE IV ONE (11:35)
[2021-05-30 12:54] LABS: RSV AMPLIFICATION NEGATIVE (NEGATIVE)
[2021-05-30] MEDS ORDERED: BIOT5TAB3 PO (13:22)
[2021-05-30] MEDS ORDERED: TORS20TA2 PO (13:22)
[2021-05-30] MEDS ORDERED: RETA1000 SQ (13:22)
[2021-05-30] MEDS ORDERED: PLAV1TAB2 PO (13:22)
[2021-05-30] MEDS ORDERED: VITA-243 PO (13:22)
[2021-05-30] MEDS ORDERED: THEA200C PO (13:22)
[2021-05-30] MEDS ORDERED: BASA100I SC (13:22)
[2021-05-30] MEDS ORDERED: CARV6.25 PO (13:22)
[2021-05-30] MEDS ORDERED: MAGN500T6 PO (13:22)
[2021-05-30] MEDS ORDERED: NITR-67 PO (13:22)
[2021-05-30] MEDS ORDERED: D3 +TAB PO (13:22)
[2021-05-30] MEDS ORDERED: GLIP5TAB8 PO (13:22)
[2021-05-30] MEDS ORDERED: CIDA500T2 PO (13:22)
[2021-05-30] MEDS ORDERED: SPIR-10 PO (13:22)
[2021-05-30] MEDS ORDERED: HYDR-3911 PO (13:22)
[2021-05-30] MEDS ORDERED: NITR0.4S14 SL (13:22)
[2021-05-30 14:02] VITALS: BP 155/89
--- NOTE | 2021-05-30 20:23 | ECGEPIP ---
[facility] - ED Test Date: 2021-05-30 Pat Name: MIHAI MILNER Department: Room: - Gender: Female Metallurgical Or Materials Technician: NICHOLE : 1950 Requested By: MEGHA Clancy Order Number: [id number] Reading MD: Milton Meyer Measurements Intervals [place] Rate: 124 P: [place]: QRS: -8 QRSD: 92 T: 127 QT: 328 QTc: 471 Interpretive Statements Atrial fibrillation with rapid ventricular response Minimal voltage criteria for LVH, may be normal variant ( [place] product ) Nonspecific ST-T wave abnormalities Tracing done 03-01-20 showed sinus rhythm Electronically Signed on 05-30-2021 20:23:21 EDT by Milton Meyer
== END 2021-05-30 14:15 | disposition short-term general hospital (02) ==
LOC: M ED 05:53
DX: I21.4 Non-ST elevation (NSTEMI) myocardial infarction (principal); I48.91 Unspecified atrial fibrillation; J98.11 Atelectasis; I13.0 Hypertensive heart and chronic kidney disease with heart failure and stage 1 through stage 4 chronic kidney disease, or unspecified chronic kidney disease; I50.9 Heart failure, unspecified; N18.30 Chronic kidney disease, stage 3 unspecified; E78.5 Hyperlipidemia, unspecified; E03.9 Hypothyroidism, unspecified; G47.33 Obstructive sleep apnea (adult) (pediatric); Z95.5 Presence of coronary angioplasty implant and graft; Z88.2 Allergy status to sulfonamides; Z79.82 Long term (current) use of aspirin; Z79.899 Other long term (current) drug therapy; Z79.890 Hormone replacement therapy
CPT/HCPCS: 71046; 80048; 80076; 82550; 82553; 83690; 84439; 84443; 84484; 85025; 87631; 93005; 93041; 94760; 96365; 96366; 96375; 99285; J0282; J1644

== ENCOUNTER → 2021-06-10 | Outpatient (REF) | payer MEDICARE, OTHER ==
[~2021-06-10] MED LIST changes: +BASA100I SC; +BIOT5TAB3 PO; +CARV6.25 PO; +CIDA500T2 PO; +D3 +TAB PO; +GLIP5TAB8 PO; +HYDR-3911 PO; +MAGN500T6 PO; +NITR-67 PO; +NITR0.4S14 SL; +RETA1000 SQ; +SPIR-10 PO; +THEA200C PO; +TORS20TA2 PO; +VITA-243 PO
== END ==
LOC: M SFHCPLAZ 12:43
PROVIDERS: ATTEND Internal Medicine
DX: E11.3299 Type 2 diabetes mellitus with mild nonproliferative diabetic retinopathy without macular edema, unspecified eye (principal)

== ENCOUNTER → 2021-07-06 | Outpatient (CLI) | payer MEDICARE, OTHER ==
[2021-07-06 14:03] LABS: BASO % 0.4 % (0.0-1.0); EOS # 0.3 10^3/uL (0.0-0.5); EOS % 3.9 % (0.0-3.0); HEMATOCRIT 31.6 % (36.0-47.0); HEMOGLOBIN 9.9 g/dl (12.0-15.5); LYMPH # 1.3 10^3/uL (1.5-5.0); LYMPH % 15.6 % (24.0-44.0); MEAN CORPUSCULAR HEMOGLOBIN 29.4 pg (27.0-33.0); MEAN CORPUSCULAR HGB CONC 31.3 g/dl (32.0-36.5); MEAN CORPUSCULAR VOLUME 93.8 fl (80.0-96.0); MONO # 0.8 10^3/uL (0.0-0.8); MONO % 9.5 % (2.0-8.0); NEUTROPHILS # 5.9 10^3/uL (1.5-8.5); NEUTROPHILS % 70.2 % (36.0-66.0); PLATELET COUNT, AUTOMATED 357 10^3/uL (150-450); RED BLOOD COUNT 3.37 10^6/uL (4.00-5.40); WHITE BLOOD COUNT 8.4 10^3/uL (4.0-10.0)
[2021-07-06 14:41] LABS: ALBUMIN 3.5 GM/DL (3.2-5.2); CALCIUM LEVEL 9.7 MG/DL (8.8-10.2); CREATININE FOR GFR 2.48 MG/DL (0.55-1.30); GLOMERULAR FILTRATION RATE 20.5 (>39); PHOSPHORUS LEVEL 4.6 MG/DL (2.5-4.9); POTASSIUM SERUM 4.2 MEQ/L (3.5-5.1)
== END ==
LOC: M PLALAB 08:34
PROVIDERS: ATTEND Internal Medicine Cardiovascular Disease
DX: I50.33 Acute on chronic diastolic (congestive) heart failure (principal)

== ENCOUNTER → 2021-07-20 | Outpatient (REF) | payer MEDICARE, OTHER ==
[2021-07-20 15:02] LABS: PERCENT SATURATION 14.7 % (13.2-45.0)
== END ==
LOC: M LAB REF 13:21
PROVIDERS: ATTEND Internal Medicine Nephrology
DX: D50.9 Iron deficiency anemia, unspecified (principal)

== ENCOUNTER → 2021-09-01 | Outpatient (CLI) | payer MEDICARE, OTHER ==
[~2021-09-01] MED LIST changes: -AMIO200T3 PO; +AMIO200T49 PO; +ATOR80TA59 PO; +ELIQ2.5T PO; +INSUDET SC; +LOSA100T45 PO; -LOSA100T50 PO; +METO1TAB32 PO; +TRAM50TA2 PO
[2021-09-01 12:28] LABS: CALCIUM LEVEL 9.4 MG/DL (8.8-10.2); CREATININE FOR GFR 2.36 MG/DL (0.55-1.30); GLOMERULAR FILTRATION RATE 21.7 (>39); POTASSIUM SERUM 4.3 MEQ/L (3.5-5.1)
== END ==
LOC: M PLALAB 10:41
PROVIDERS: ATTEND Internal Medicine Cardiovascular Disease
DX: I48.0 Paroxysmal atrial fibrillation (principal)

== ENCOUNTER 2021-10-18 00:18 | Inpatient (IN) | payer MEDICARE, OTHER ==
[~2021-10-18] VITALS: Ht 170.2 cm; Wt 93.3 kg
[2021-10-18] VITALS (10 sets, daily range): BP systolic 144–176; BP diastolic 65–80; O2SAT 91–99
[~2021-10-18 00:18] MED LIST changes: -ATOR80TA59 PO; -ELIQ2.5T PO; -INSUDET SC; -METO1TAB32 PO; -TRAM50TA2 PO
[2021-10-18 00:50] LABS: BASO # 0.1 10^3/uL (0.0-0.2); BASO % 0.2 % (0.0-1.0); EOS # 0.1 10^3/uL (0.0-0.5); EOS % 0.4 % (0.0-3.0); HEMATOCRIT 29.3 % (36.0-47.0); HEMOGLOBIN 9.1 g/dl (12.0-15.5); LYMPH # 1.2 10^3/uL (1.5-5.0); LYMPH % 6.1 % (24.0-44.0); MEAN CORPUSCULAR HEMOGLOBIN 29.3 pg (27.0-33.0); MEAN CORPUSCULAR HGB CONC 31.1 g/dl (32.0-36.5); MEAN CORPUSCULAR VOLUME 94.2 fl (80.0-96.0); MONO # 0.9 10^3/uL (0.0-0.8); MONO % 4.6 % (2.0-8.0); NEUTROPHILS # 17.6 10^3/uL (1.5-8.5); NEUTROPHILS % 87.9 % (36.0-66.0); PLATELET COUNT, AUTOMATED 566 10^3/uL (150-450); RED BLOOD COUNT 3.11 10^6/uL (4.00-5.40); WHITE BLOOD COUNT 20.1 10^3/uL (4.0-10.0)
[2021-10-18] MEDS: COMBIVENT RESPIMAT 100-20MCG INHALER 4GM INH SCH ×3 (01:05→01:26)
[2021-10-18 01:14] LABS: CALCIUM LEVEL 9.3 MG/DL (8.8-10.2); CK-MB VALUE MASS < 1.0 NG/ML (<3.6); CPK CREATINE PHOSPHOKINASE 60 U/L (26-192); CREATININE FOR GFR 1.89 MG/DL (0.55-1.30); MB/CK RELATIVE INDEX 1.67 (< OR =4); POTASSIUM SERUM 4.3 MEQ/L (3.5-5.1)
[2021-10-18 01:27] LABS: ABG BASE EXCESS -0.8 (-2.0-2.0); ABG O2 SATURATION 96.4 % (95.0-99.0); ABG PARTIAL PRESSURE CO2 34.5 mmHg (35.0-45.0); ABG PARTIAL PRESSURE O2 80.2 mmHg (75.0-100.0); ABG STANDARD HCO3 23.8 MEQ/L (22.0-26.0); ABG TOTAL CO2 24.1 MEQ/L (23.0-31.0); ABG pH (ARTERIAL) 7.442 UNITS (7.350-7.450)
[2021-10-18 02:29] LABS: CK-MB VALUE MASS < 1.0 NG/ML (<3.6); CPK CREATINE PHOSPHOKINASE 54 U/L (26-192); MB/CK RELATIVE INDEX 1.85 (< OR =4)
[2021-10-18] MEDS ORDERED: FUROSEMIDE 40MG/4ML VIAL (J1940) IV ONE (04:00)
[2021-10-18] MEDS: IPRATROPIUM 0.5MG/ALBUTEROL 2.5MG INH SOL UD 3ML (DUONEB) INH SCH ×6 (04:00→23:15)
[2021-10-18] MEDS ORDERED: ALBUTEROL 90 MCG/ACT 8GM HFA INHALER INH PRN (04:00)
[2021-10-18] MEDS ORDERED: cefTRIAXone SOD 1 GM in D5W MINI-BAG PLUS 50 ML IV ONE (04:00)
[2021-10-18] MEDS ORDERED: ALBUTEROL SULFATE 2.5 MG/0.5 ML INH NEB SOLN INH PRN (04:00)
[2021-10-18] MEDS ORDERED: ATOR80TA59 PO (04:38)
[2021-10-18] MEDS ORDERED: TRAM50TA2 PO (04:38)
[2021-10-18] MEDS ORDERED: AMLO1TAB25 PO (04:38)
[2021-10-18] MEDS ORDERED: MACR100C43 PO (04:39)
[2021-10-18] MEDS ORDERED: ELIQ2.5T PO (04:40)
[2021-10-18] MEDS ORDERED: HOME MED LIST COMPLETE! XX SCH (04:45)
[2021-10-18] MEDS ORDERED: DOXYCYCLINE HYCLATE 100 MG in D5W MINI-BAG PLUS 100 ML IV SCH (06:00)
[2021-10-18] MEDS: LEVOTHYROXINE 50MCG TABLET (0.05MG) PO SCH (08:05)
[2021-10-18] MEDS: traMADol 50 MG TAB PO PRN (08:07)
[2021-10-18 08:42] LABS: HEMATOCRIT 26.5 % (36.0-47.0); HEMOGLOBIN 8.4 g/dl (12.0-15.5); MEAN CORPUSCULAR HEMOGLOBIN 29.6 pg (27.0-33.0); MEAN CORPUSCULAR HGB CONC 31.7 g/dl (32.0-36.5); MEAN CORPUSCULAR VOLUME 93.3 fl (80.0-96.0); PLATELET COUNT, AUTOMATED 494 10^3/uL (150-450); RED BLOOD COUNT 2.84 10^6/uL (4.00-5.40); WHITE BLOOD COUNT 16.6 10^3/uL (4.0-10.0)
[2021-10-18 08:52] LABS: INR 1.22; PROTHROMBIN TIME 15.9 SECONDS (12.7-14.5)
[2021-10-18 08:53] LABS: PARTIAL THROMBOPLASTIN TIME 35.5 SECONDS (25.9-37.0)
[2021-10-18] MEDS ORDERED: APIXABAN 2.5 MG TAB (ELIQUIS) PO SCH (09:00)
[2021-10-18] MEDS ORDERED: ASPIRIN 81MG ENTERIC TABLET PO SCH (09:00)
[2021-10-18 09:22] LABS: ALBUMIN 3.1 GM/DL (3.2-5.2); ALT/SGPT 37 U/L (12-78); BILIRUBIN,TOTAL < 0.1 MG/DL (0.2-1.0); BLOOD UREA NITROGEN 25 MG/DL (7-18); CALCIUM LEVEL 9.2 MG/DL (8.8-10.2); CARBON DIOXIDE LEVEL 26 MEQ/L (21-32); CHLORIDE LEVEL 102 MEQ/L (98-107); CREATININE FOR GFR 1.88 MG/DL (0.55-1.30); GLOMERULAR FILTRATION RATE 28.2 (>39); GLUCOSE, FASTING 187 MG/DL (70-100); POTASSIUM SERUM 3.9 MEQ/L (3.5-5.1); SODIUM LEVEL 135 MEQ/L (136-145); TOTAL PROTEIN 7.8 GM/DL (6.4-8.2)
[2021-10-18] MEDS: TORSEMIDE 20 MG TAB PO SCH ×2 (10:24→17:01)
[2021-10-18] MEDS: SPIRONOLACTONE 12.5MG PER 1/2 TABLET PO SCH (10:24)
[2021-10-18] MEDS: MULTIVITAMINS/MINERALS THERAP 1 TAB PO SCH (10:25)
[2021-10-18] MEDS: ASCORBIC ACID 500 MG TAB PO SCH (10:25)
[2021-10-18] MEDS: CALCIUM/VITAMIN D 500 MG TAB PO SCH (10:26)
[2021-10-18] MEDS: CARVedilol 6.25 MG TAB PO SCH ×2 (10:26→21:13)
[2021-10-18] MEDS: FERROUS SULFATE 325MG TAB PO SCH (10:27)
[2021-10-18 11:16] LABS: HEMOGLOBIN A1c 6.3 %
[2021-10-18] MEDS: FUROSEMIDE 40MG/4ML VIAL (J1940) IV SCH ×2 (12:36→17:02)
[2021-10-18] MEDS: MAGNESIUM GLUCONATE 500 MG TAB PO SCH (12:36)
[2021-10-18] MEDS ORDERED: MORPHINE 2 MG/ML 1ML VIAL (J2270) IV ONE (14:35)
[2021-10-18] MEDS ORDERED: MORPHINE 2 MG/ML 1ML VIAL (J2270) IV PRN (14:40)
[2021-10-18] MEDS ORDERED: DEXTROSE 50% 50 ML SYRINGE IV PRN (15:50)
[2021-10-18] MEDS ORDERED: GLUCAGON INJ 1MG VIAL SC PRN (15:50)
[2021-10-18] MEDS ORDERED: GLUCOSE 4GM CHEW TABLET PO PRN (15:50)
[2021-10-18] MEDS: ACETAMINOPHEN TAB 650MG DOSE (2X325MG) PO PRN (17:01)
[2021-10-18] MEDS: HumaLOG INSULIN (NovoLOG) PER UNIT SC SCH ×2 (17:02→21:12)
[2021-10-18] MEDS ORDERED: LEVEMIR (INSULIN DETEMIR) 1 UNITS/0.01ML SC SCH ×2 (21:00)
[2021-10-18 21:05] LABS: HEMATOCRIT 23.1 % (36.0-47.0); HEMOGLOBIN 7.3 g/dl (12.0-15.5); MEAN CORPUSCULAR HEMOGLOBIN 29.3 pg (27.0-33.0); MEAN CORPUSCULAR HGB CONC 31.6 g/dl (32.0-36.5); MEAN CORPUSCULAR VOLUME 92.8 fl (80.0-96.0); PLATELET COUNT, AUTOMATED 435 10^3/uL (150-450); RED BLOOD COUNT 2.49 10^6/uL (4.00-5.40); WHITE BLOOD COUNT 15.8 10^3/uL (4.0-10.0)
[2021-10-18] MEDS: ATORVASTATIN 20 MG TAB PO SCH (21:13)
[2021-10-19] VITALS (35 sets, daily range): BP systolic 123–160; BP diastolic 60–88; O2SAT 87–94
[2021-10-19] MEDS: IPRATROPIUM 0.5MG/ALBUTEROL 2.5MG INH SOL UD 3ML (DUONEB) INH SCH ×5 (03:26→19:53)
[2021-10-19] MEDS ORDERED: cefTRIAXone SOD 1 GM in D5W MINI-BAG PLUS 50 ML IV SCH (05:00)
[2021-10-19 05:50] LABS: HEMATOCRIT 22.3 % (36.0-47.0); HEMOGLOBIN 7.2 g/dl (12.0-15.5); MEAN CORPUSCULAR HGB CONC 32.3 g/dl (32.0-36.5); MEAN CORPUSCULAR VOLUME 92.9 fl (80.0-96.0); PLATELET COUNT, AUTOMATED 431 10^3/uL (150-450); WHITE BLOOD COUNT 15.9 10^3/uL (4.0-10.0)
[2021-10-19 06:20] LABS: CALCIUM LEVEL 8.6 MG/DL (8.8-10.2); CREATININE FOR GFR 1.76 MG/DL (0.55-1.30); GLOMERULAR FILTRATION RATE 30.4 (>39); MAGNESIUM LEVEL 2.1 MG/DL (1.8-2.4); POTASSIUM SERUM 4.1 MEQ/L (3.5-5.1)
[2021-10-19] MEDS: LEVOTHYROXINE 50MCG TABLET (0.05MG) PO SCH (06:25)
[2021-10-19] MEDS ORDERED: ISOVUE-370 76% 100ML VIAL As Ordered ONE (07:54)
[2021-10-19] MEDS ORDERED: LEVEMIR (INSULIN DETEMIR) 1 UNITS/0.01ML SC SCH (09:00)
[2021-10-19] MEDS: FUROSEMIDE 40MG/4ML VIAL (J1940) IV SCH ×2 (09:00→09:23)
[2021-10-19] MEDS: MAGNESIUM GLUCONATE 500 MG TAB PO SCH (09:04)
[2021-10-19] MEDS: SPIRONOLACTONE 12.5MG PER 1/2 TABLET PO SCH (09:04)
[2021-10-19] MEDS: CARVedilol 6.25 MG TAB PO SCH (09:05)
[2021-10-19] MEDS: MULTIVITAMINS/MINERALS THERAP 1 TAB PO SCH (09:05)
[2021-10-19] MEDS: TORSEMIDE 20 MG TAB PO SCH (09:06)
[2021-10-19] MEDS: ASCORBIC ACID 500 MG TAB PO SCH (09:09)
[2021-10-19] MEDS: CALCIUM/VITAMIN D 500 MG TAB PO SCH (09:09)
[2021-10-19] MEDS: FERROUS SULFATE 325MG TAB PO SCH (09:09)
[2021-10-19] MEDS: HumaLOG INSULIN (NovoLOG) PER UNIT SC SCH ×4 (09:59→21:02)
[2021-10-19] MEDS: LEVEMIR (INSULIN DETEMIR) 1 UNITS/0.01ML SC SCH (10:00)
[2021-10-19] MEDS: traMADol 50 MG TAB PO PRN (10:43)
[2021-10-19] MEDS: ACETAMINOPHEN TAB 650MG DOSE (2X325MG) PO PRN (15:04)
[2021-10-19] MEDS ORDERED: DIGOXIN INJ 0.5 MG/2 ML AMP (J1160) IV STA (17:57)
[2021-10-19] MEDS: METOPROLOL SUCC *XL* 25MG TAB (TopROL *XL*) PO SCH (18:51)
[2021-10-19 18:53] LABS: HEMATOCRIT 29.2 % (36.0-47.0); MEAN CORPUSCULAR HEMOGLOBIN 29.1 pg (27.0-33.0); MEAN CORPUSCULAR HGB CONC 32.9 g/dl (32.0-36.5); MEAN CORPUSCULAR VOLUME 88.5 fl (80.0-96.0); PLATELET COUNT, AUTOMATED 399 10^3/uL (150-450); WHITE BLOOD COUNT 16.1 10^3/uL (4.0-10.0)
[2021-10-19 18:59] LABS: HEMOGLOBIN 9.6 g/dl (12.0-15.5)
[2021-10-19] MEDS: ATORVASTATIN 20 MG TAB PO SCH (21:02)
[2021-10-20] VITALS (13 sets, daily range): BP systolic 123–148; BP diastolic 66–93; O2SAT 90–93
[2021-10-20] MEDS: LEVOTHYROXINE 50MCG TABLET (0.05MG) PO SCH (06:34)
[2021-10-20 06:57] LABS: CALCIUM LEVEL 8.7 MG/DL (8.8-10.2); CREATININE FOR GFR 1.95 MG/DL (0.55-1.30); MAGNESIUM LEVEL 2.3 MG/DL (1.8-2.4); POTASSIUM SERUM 4.1 MEQ/L (3.5-5.1)
[2021-10-20] MEDS: IPRATROPIUM 0.5MG/ALBUTEROL 2.5MG INH SOL UD 3ML (DUONEB) INH SCH ×3 (07:17→11:27)
[2021-10-20] MEDS ORDERED: INSUDET SC (08:10)
[2021-10-20] MEDS ORDERED: METO1TAB32 PO (08:10)
[2021-10-20 08:44] LABS: HEMATOCRIT 29.9 % (36.0-47.0); HEMOGLOBIN 9.6 g/dl (12.0-15.5); MEAN CORPUSCULAR HEMOGLOBIN 29.4 pg (27.0-33.0); MEAN CORPUSCULAR HGB CONC 32.1 g/dl (32.0-36.5); MEAN CORPUSCULAR VOLUME 91.4 fl (80.0-96.0); PLATELET COUNT, AUTOMATED 410 10^3/uL (150-450); RED BLOOD COUNT 3.27 10^6/uL (4.00-5.40); WHITE BLOOD COUNT 13.7 10^3/uL (4.0-10.0)
[2021-10-20] MEDS: HumaLOG INSULIN (NovoLOG) PER UNIT SC SCH ×2 (09:40→13:36)
[2021-10-20] MEDS: MULTIVITAMINS/MINERALS THERAP 1 TAB PO SCH (09:42)
[2021-10-20] MEDS: FERROUS SULFATE 325MG TAB PO SCH (09:42)
[2021-10-20] MEDS: SPIRONOLACTONE 12.5MG PER 1/2 TABLET PO SCH (09:42)
[2021-10-20] MEDS: LEVEMIR (INSULIN DETEMIR) 1 UNITS/0.01ML SC SCH (09:42)
[2021-10-20] MEDS: CALCIUM/VITAMIN D 500 MG TAB PO SCH (09:43)
[2021-10-20] MEDS: MAGNESIUM GLUCONATE 500 MG TAB PO SCH (09:44)
[2021-10-20] MEDS: METOPROLOL SUCC *XL* 25MG TAB (TopROL *XL*) PO SCH (09:44)
[2021-10-20] MEDS: ASCORBIC ACID 500 MG TAB PO SCH (09:44)
[2021-10-20 16:08] LABS: MYCOPLASMA PNEUMONIAE IgG 139 U/mL (0-99); MYCOPLASMA PNEUMONIAE IgM <770 U/mL (0-769)
[2021-10-22 15:14] LABS: CHLAMYDIA PNEUMONIAE IgM <1:10 (Neg:<1:10)
== END 2021-10-20 14:19 | disposition home health service (06) | DRG 291 ==
LOC: M ED 00:18 → M ED INP 04:46 → ENRESERV 08:37 → M PCU 10:38
PROVIDERS: ADMIT Family Medicine; ATTEND General Practice
PROC: 30233N1 Transfusion of Nonautologous Red Blood Cells into Peripheral Vein, Percutaneous Approach (ICD-10-PCS; principal; 2021-10-19)
DX: I13.0 Hypertensive heart and chronic kidney disease with heart failure and stage 1 through stage 4 chronic kidney disease, or unspecified chronic kidney disease (principal); I50.33 Acute on chronic diastolic (congestive) heart failure; J96.01 Acute respiratory failure with hypoxia; D62 Acute posthemorrhagic anemia; I97.638 Postprocedural hematoma of a circulatory system organ or structure following other circulatory system procedure; B97.4 Respiratory syncytial virus as the cause of diseases classified elsewhere; I48.91 Unspecified atrial fibrillation; N18.30 Chronic kidney disease, stage 3 unspecified; E03.9 Hypothyroidism, unspecified; I25.10 Atherosclerotic heart disease of native coronary artery without angina pectoris; Z95.1 Presence of aortocoronary bypass graft; E78.5 Hyperlipidemia, unspecified; Z79.899 Other long term (current) drug therapy; Z79.82 Long term (current) use of aspirin; G89.29 Other chronic pain; Z95.2 Presence of prosthetic heart valve; E11.3299 Type 2 diabetes mellitus with mild nonproliferative diabetic retinopathy without macular edema, unspecified eye; G47.33 Obstructive sleep apnea (adult) (pediatric); K21.9 Gastro-esophageal reflux disease without esophagitis; I35.0 Nonrheumatic aortic (valve) stenosis; D63.1 Anemia in chronic kidney disease; Z88.2 Allergy status to sulfonamides; K44.9 Diaphragmatic hernia without obstruction or gangrene; K57.30 Diverticulosis of large intestine without perforation or abscess without bleeding

== ENCOUNTER → 2021-10-30 | Outpatient (CLI) | payer MEDICARE, OTHER ==
[~2021-10-30] MED LIST changes: +ATOR80TA59 PO; +ELIQ2.5T PO; +INSUDET SC; +METO1TAB32 PO; +TRAM50TA2 PO
[2021-10-30 10:48] LABS: BASO % 0.4 % (0.0-1.0); EOS # 0.2 10^3/uL (0.0-0.5); EOS % 3.4 % (0.0-3.0); HEMOGLOBIN 10.3 g/dl (12.0-15.5); LYMPH # 1.4 10^3/uL (1.5-5.0); LYMPH % 19.8 % (24.0-44.0); MEAN CORPUSCULAR HEMOGLOBIN 28.8 pg (27.0-33.0); MEAN CORPUSCULAR HGB CONC 31.2 g/dl (32.0-36.5); MEAN CORPUSCULAR VOLUME 92.2 fl (80.0-96.0); MONO # 0.5 10^3/uL (0.0-0.8); MONO % 7.6 % (2.0-8.0); NEUTROPHILS # 4.9 10^3/uL (1.5-8.5); NEUTROPHILS % 68.4 % (36.0-66.0); PLATELET COUNT, AUTOMATED 460 10^3/uL (150-450); RED BLOOD COUNT 3.58 10^6/uL (4.00-5.40); WHITE BLOOD COUNT 7.1 10^3/uL (4.0-10.0)
[2021-10-30 11:22] LABS: ALBUMIN 3.4 GM/DL (3.2-5.2); BILIRUBIN,TOTAL 0.8 MG/DL (0.2-1.0); CREATININE FOR GFR 2.28 MG/DL (0.55-1.30); GLOMERULAR FILTRATION RATE 22.5 (>39); POTASSIUM SERUM 3.9 MEQ/L (3.5-5.1); TOTAL PROTEIN 7.1 GM/DL (6.4-8.2)
== END ==
LOC: M PLALAB 08:41
PROVIDERS: ATTEND Internal Medicine Cardiovascular Disease
DX: I50.32 Chronic diastolic (congestive) heart failure (principal); I48.0 Paroxysmal atrial fibrillation; I35.0 Nonrheumatic aortic (valve) stenosis

== ENCOUNTER 2021-12-08 06:51 | Emergency (ER) | payer MEDICARE, OTHER ==
[~2021-12-08] VITALS: Ht 170.2 cm; Wt 84.1 kg
[2021-12-08] MEDS ORDERED: PLAV1TAB2 PO (07:36)
[2021-12-08] MEDS ORDERED: TORS20TA2 PO (07:36)
[2021-12-08] MEDS ORDERED: FLON1SPR NARES (07:36)
[2021-12-08] MEDS ORDERED: METO50TA7 PO (07:36)
[2021-12-08] MEDS ORDERED: GLIP5TAB8 PO (07:36)
[2021-12-08] MEDS ORDERED: NEURO-PS PO (07:36)
[2021-12-08] MEDS ORDERED: JANU100T PO (07:36)
[2021-12-08] MEDS ORDERED: AMIO200T49 PO (07:36)
[2021-12-08 08:11] LABS: VENOUS BASE EXCESS 0.8 (-2.0-2.0); VENOUS HCO3 26.2 MEQ/L (23.0-27.0); VENOUS O2 SATURATION 57.1 % (60.0-80.0); VENOUS PARTIAL PRESSURE CO2 45.1 mmHg (38.0-50.0); VENOUS PARTIAL PRESSURE O2 30.7 mmHg (30.0-50.0); VENOUS PH 7.382 UNITS (7.330-7.430); VENOUS STANDARD HCO3 24.5 MEQ/L; VENOUS TOTAL CO2 27.6 MEQ/L (24.0-28.0)
[2021-12-08 08:19] LABS: BASO % 0.2 % (0.0-1.0); EOS # 0.2 10^3/uL (0.0-0.5); EOS % 1.9 % (0.0-3.0); HEMATOCRIT 30.5 % (36.0-47.0); HEMOGLOBIN 9.9 g/dl (12.0-15.5); LYMPH # 1.1 10^3/uL (1.5-5.0); LYMPH % 8.6 % (24.0-44.0); MEAN CORPUSCULAR HEMOGLOBIN 29.6 pg (27.0-33.0); MEAN CORPUSCULAR HGB CONC 32.5 g/dl (32.0-36.5); MONO # 0.9 10^3/uL (0.0-0.8); MONO % 7.5 % (2.0-8.0); NEUTROPHILS # 9.9 10^3/uL (1.5-8.5); NEUTROPHILS % 81.6 % (36.0-66.0); PLATELET COUNT, AUTOMATED 371 10^3/uL (150-450); RED BLOOD COUNT 3.35 10^6/uL (4.00-5.40); WHITE BLOOD COUNT 12.2 10^3/uL (4.0-10.0)
[2021-12-08 08:29] LABS: INR 0.98; PROTHROMBIN TIME 13.4 SECONDS (12.7-14.5)
[2021-12-08 08:51] LABS: CK-MB VALUE MASS < 1.0 NG/ML (<3.6); CPK CREATINE PHOSPHOKINASE 58 U/L (26-192); MB/CK RELATIVE INDEX 1.72 (< OR =4)
[2021-12-08 08:56] LABS: ALBUMIN 3.3 GM/DL (3.2-5.2); BILIRUBIN,DIRECT 0.2 MG/DL (0.0-0.2); BILIRUBIN,TOTAL 0.6 MG/DL (0.2-1.0); CALCIUM LEVEL 9.4 MG/DL (8.8-10.2); CREATININE FOR GFR 2.31 MG/DL (0.55-1.30); GLOMERULAR FILTRATION RATE 22.2 (>39); POTASSIUM SERUM 4.2 MEQ/L (3.5-5.1); THYROID STIMULATING HORMONE 3.12 uIU/ML (0.358-3.740); TOTAL PROTEIN 7.5 GM/DL (6.4-8.2)
[2021-12-08] MEDS ORDERED: FUROSEMIDE 100MG/10ML VIAL (J1940) IV ONE ×2 (09:20→10:00)
[2021-12-08] MEDS ORDERED: NITROGLYCERIN 2% OINT 1 GM *U/D* PKT TOP ONE (09:20)
[2021-12-08 09:50] VITALS: BP 221/102
[2021-12-08 11:30] VITALS: BP 180/84
== END 2021-12-08 12:10 | disposition short-term general hospital (02) ==
LOC: M ED 06:51
DX: I50.9 Heart failure, unspecified (principal); I35.0 Nonrheumatic aortic (valve) stenosis; R06.02 Shortness of breath; E11.9 Type 2 diabetes mellitus without complications; I10 Essential (primary) hypertension; N18.9 Chronic kidney disease, unspecified; Z95.1 Presence of aortocoronary bypass graft; Z88.2 Allergy status to sulfonamides; Z79.4 Long term (current) use of insulin; Z79.899 Other long term (current) drug therapy
CPT/HCPCS: 71045; 80048; 80076; 82550; 82553; 82803; 83605; 83880; 84443; 84484; 85025; 85610; 87040; 87798; 93005; 93041; 96374; 96375; 99285; J1940

== ENCOUNTER → 2022-01-11 | Outpatient (CLI) | payer MEDICARE, OTHER ==
[~2022-01-11] MED LIST changes: +FLON1SPR NARES; +METO50TA7 PO; +NEURO-PS PO
[2022-01-11 13:47] LABS: BASO % 0.4 % (0.0-1.0); EOS # 0.1 10^3/uL (0.0-0.5); EOS % 0.6 % (0.0-3.0); HEMATOCRIT 28.2 % (36.0-47.0); HEMOGLOBIN 8.9 g/dl (12.0-15.5); LYMPH % 12.2 % (24.0-44.0); MEAN CORPUSCULAR HEMOGLOBIN 32.6 pg (27.0-33.0); MEAN CORPUSCULAR HGB CONC 31.6 g/dl (32.0-36.5); MEAN CORPUSCULAR VOLUME 103.3 fl (80.0-96.0); MONO # 0.6 10^3/uL (0.0-0.8); MONO % 7.1 % (2.0-8.0); NEUTROPHILS # 6.5 10^3/uL (1.5-8.5); NEUTROPHILS % 79.3 % (36.0-66.0); PLATELET COUNT, AUTOMATED 320 10^3/uL (150-450); RED BLOOD COUNT 2.73 10^6/uL (4.00-5.40); WHITE BLOOD COUNT 8.1 10^3/uL (4.0-10.0)
[2022-01-11 14:27] LABS: CREATININE FOR GFR 2.83 MG/DL (0.55-1.30); GLOMERULAR FILTRATION RATE 17.6 (>39); POTASSIUM SERUM 4.4 MEQ/L (3.5-5.1); PTH INTACT 148.3 PG/ML (18.5-88.0)
[2022-01-11 14:28] LABS: ALBUMIN 3.1 GM/DL (3.2-5.2); BILIRUBIN,TOTAL 0.5 MG/DL (0.2-1.0); CALCIUM LEVEL 8.8 MG/DL (8.8-10.2); THYROID STIMULATING HORMONE 7.49 uIU/ML (0.358-3.740); TOTAL PROTEIN 6.5 GM/DL (6.4-8.2)
[2022-01-11 15:48] LABS: HEMOGLOBIN A1c 6.2 %
== END ==
LOC: M PLALAB 09:35
PROVIDERS: ATTEND Internal Medicine
DX: I12.9 Hypertensive chronic kidney disease with stage 1 through stage 4 chronic kidney disease, or unspecified chronic kidney disease (principal); D63.1 Anemia in chronic kidney disease; N18.4 Chronic kidney disease, stage 4 (severe); I50.32 Chronic diastolic (congestive) heart failure; E03.9 Hypothyroidism, unspecified; E11.3299 Type 2 diabetes mellitus with mild nonproliferative diabetic retinopathy without macular edema, unspecified eye; Z79.899 Other long term (current) drug therapy

== ENCOUNTER → 2022-02-02 | Outpatient (CLI) | payer MEDICARE, OTHER ==
[2022-02-02 11:35] LABS: ALBUMIN 3.4 GM/DL (3.2-5.2); CALCIUM LEVEL 9.7 MG/DL (8.8-10.2); CREATININE FOR GFR 2.34 MG/DL (0.55-1.30); GLOMERULAR FILTRATION RATE 21.9 (>39); PHOSPHORUS LEVEL 4.4 MG/DL (2.5-4.9); POTASSIUM SERUM 4.1 MEQ/L (3.5-5.1)
== END ==
LOC: M PLALAB 08:40
PROVIDERS: ATTEND Internal Medicine Cardiovascular Disease
DX: I50.32 Chronic diastolic (congestive) heart failure (principal); I11.0 Hypertensive heart disease with heart failure

== ENCOUNTER → 2022-03-19 | Outpatient (REF) | payer MEDICARE, OTHER ==
[2022-03-19 18:47] LABS: CHOLESTEROL RISK RATIO 2.727 (<5); THYROID STIMULATING HORMONE 5.67 uIU/ML (0.358-3.740)
[2022-03-19 18:48] LABS: HEMOGLOBIN A1c 6.1 %
== END ==
LOC: M SFHCPLAZ 16:57
PROVIDERS: ATTEND Internal Medicine
DX: E11.3299 Type 2 diabetes mellitus with mild nonproliferative diabetic retinopathy without macular edema, unspecified eye (principal); E03.9 Hypothyroidism, unspecified; I25.10 Atherosclerotic heart disease of native coronary artery without angina pectoris

== ENCOUNTER → 2022-03-30 | Outpatient (REF) | payer MEDICARE, OTHER ==
[2022-03-31 10:51] LABS: APPEARANCE, URINE TURBID (CLEAR); BACTERIA, URINE AUTO 2+ (NEGATIVE); BILIRUBIN, URINE AUTO NEGATIVE (NEGATIVE); BLOOD, URINE BLOOD NEGATIVE (NEGATIVE); COLOR, URINE AMBER (YELLOW); GLUCOSE, URINE (UA) AUTO NEGATIVE (NEGATIVE); KETONE, URINE AUTO NEGATIVE (NEGATIVE); LEUKOCYTE ESTERASE, URINE AUTO 3+ (NEGATIVE); NITRITE, URINE AUTO POSITIVE (NEGATIVE); PROTEIN, URINE AUTO 1+ mg/dL (NEGATIVE); RBC, URINE AUTO 32 /HPF (0-3); SQUAMOUS EPITHELIAL CELL UR AU 2 /HPF (0-6); UROBILINOGEN, URINE AUTO 0.2 mg/dL (0.0-2.0); WBC, URINE AUTO TNTC /HPF (0-3)
== END ==
LOC: M SFHCPLAZ 10:03
PROVIDERS: ATTEND Internal Medicine
DX: R30.0 Dysuria (principal)

== ENCOUNTER → 2022-04-06 | Outpatient (CLI) | payer MEDICARE, OTHER | LOC: M RAD 11:11 | PROVIDERS: ATTEND Nurse Practitioner | DX: J90 Pleural effusion, not elsewhere classified (principal) ==

== ENCOUNTER 2022-05-01 04:42 | Inpatient (IN) | payer MEDICARE, OTHER ==
[~2022-05-01] VITALS: Ht 170.2 cm; Wt 77.4 kg
[~2022-05-01 04:42] MED LIST changes: +GLYB-150 PO; -GLYB5TAB12 PO
[2022-05-01] MEDS ORDERED: CLOP75TA2 PO (04:50)
[2022-05-01] MEDS ORDERED: TORS20TA2 PO (05:03)
[2022-05-01] MEDS ORDERED: METO25TA PO (05:10)
[2022-05-01] MEDS ORDERED: cefTRIAXone SOD 1 GM in D5W MINI-BAG PLUS 50 ML IV ONE (08:00)
[2022-05-01 08:28] LABS: BASO % 0.2 % (0.0-1.0); EOS # 0.1 10^3/uL (0.0-0.5); EOS % 0.6 % (0.0-3.0); HEMATOCRIT 24.7 % (36.0-47.0); LYMPH # 1.2 10^3/uL (1.5-5.0); LYMPH % 12.5 % (24.0-44.0); MEAN CORPUSCULAR HGB CONC 32.4 g/dl (32.0-36.5); MEAN CORPUSCULAR VOLUME 98.8 fl (80.0-96.0); MONO # 0.9 10^3/uL (0.0-0.8); MONO % 9.9 % (2.0-8.0); NEUTROPHILS # 7.2 10^3/uL (1.5-8.5); NEUTROPHILS % 76.3 % (36.0-66.0); PLATELET COUNT, AUTOMATED 201 10^3/uL (150-450); WHITE BLOOD COUNT 9.5 10^3/uL (4.0-10.0)
[2022-05-01] MEDS: CALCITRIOL 0.25 MCG CAP (S0169) PO SCH (09:00)
[2022-05-01] MEDS: MULTIVITAMINS/MINERALS THERAP 1 TAB PO SCH (09:00)
[2022-05-01] MEDS: AMIODARONE 200 MG TAB (PACERONE) PO SCH (09:00)
[2022-05-01] MEDS: CLOPIDOGREL 75 MG TAB PO SCH (09:00)
[2022-05-01 09:05] LABS: RSV AMPLIFICATION NEGATIVE (NEGATIVE)
[2022-05-01 09:16] LABS: ALBUMIN 3.5 GM/DL (3.2-5.2); BILIRUBIN,DIRECT 0.2 MG/DL (0.0-0.2); BILIRUBIN,TOTAL 0.5 MG/DL (0.2-1.0); CALCIUM LEVEL 9.4 MG/DL (8.8-10.2); CREATININE FOR GFR 5.4 MG/DL (0.55-1.30); FREE T4 1.33 NG/DL (0.76-1.46); GLOMERULAR FILTRATION RATE 8.3 (>39); THYROID STIMULATING HORMONE 2.24 uIU/ML (0.358-3.740)
[2022-05-01] MEDS ORDERED: VITA100093 PO (10:24)
[2022-05-01] MEDS ORDERED: CALC1CAP31 PO (10:24)
[2022-05-01] MEDS ORDERED: SYNT75TA PO (10:24)
[2022-05-01] MEDS ORDERED: JANU25TA PO (10:24)
[2022-05-01] MEDS ORDERED: HOME MED LIST COMPLETE! XX SCH (10:25)
[2022-05-01] MEDS ORDERED: SODIUM CHLORIDE 0.9% 1000ML IV PRN (10:55)
[2022-05-01] MEDS ORDERED: FLUTICASONE PROP 0.05% NASAL SPRAY 16 GM (FLONASE) NARES PRN (11:05)
[2022-05-01 11:37] LABS: NT-PRO BNP 25361 PG/ML (<125)
[2022-05-01] MEDS: ASPIRIN 81MG ENTERIC TABLET PO SCH (11:56)
[2022-05-01] MEDS: LEVOTHYROXINE 75MCG TABLET (0.075MG) PO SCH (11:56)
[2022-05-01] MEDS: VITAMIN D 1,000 INTERNATIONAL UNITS TABLET PO SCH (11:57)
[2022-05-01] MEDS: FERROUS SULFATE 325MG TAB PO SCH (11:57)
[2022-05-01] MEDS: METOPROLOL TART 50 MG TAB PO SCH ×2 (11:58→22:14)
[2022-05-01] MEDS ORDERED: LIDOCAINE 2% 100MG/5ML SDV (FOR ANES.) As Ordered ONE (14:04)
[2022-05-01] MEDS ORDERED: propofoL 200 MG/20 ML VIAL As Ordered ONE (14:04)
[2022-05-01] MEDS ORDERED: fentaNYL 100 MCG/2 ML INJECTION As Ordered ONE (14:04)
[2022-05-01] MEDS ORDERED: MIDAZOLAM INJ 2MG/2ML VIAL (J2250 PER 1MG) As Ordered ONE (14:04)
[2022-05-01] MEDS ORDERED: HEPARIN SOD (PORCINE) 5000UNITS/ML 1ML VIAL/SYRINGE As Ordered ONE (14:34)
[2022-05-01] MEDS ORDERED: LIDOCAINE 1% SDV 30ML VIAL As Ordered ONE (14:34)
[2022-05-01] MEDS ORDERED: DEXTROSE 50% 50 ML SYRINGE IV PRN (17:20)
[2022-05-01] MEDS ORDERED: GLUCAGON INJ 1MG VIAL SC PRN (17:20)
[2022-05-01] MEDS ORDERED: GLUCOSE 4GM CHEW TABLET PO PRN (17:20)
[2022-05-01 17:31] LABS: FERRITIN 119 NG/ML (8-252); IRON (FE) 42 UG/DL (50-170); PERCENT SATURATION 10.8 % (13.2-45.0); TOTAL IRON BINDING CAPACITY 390 UG/DL (250-450)
[2022-05-01 19:55] VITALS: BP 124/45
[2022-05-01] MEDS: INSULIN LISPRO (NovoLOG) PER UNIT SC SCH ×2 (20:26→21:00)
[2022-05-01] MEDS: HEPARIN SOD (PORCINE) 5000UNITS/ML 1ML VIAL/SYRINGE SC SCH (22:14)
[2022-05-01] MEDS: ATORVASTATIN 20 MG TAB PO SCH (22:22)
[2022-05-01] MEDS: ASCORBIC ACID 500 MG TAB PO SCH (22:22)
[2022-05-01] MEDS: oxyCODONE 5MG TAB PO PRN (22:22)
[2022-05-01] MEDS ORDERED: MIDODRINE 5 MG TAB PO ONE (23:00)
[2022-05-02 01:40] VITALS: BP 126/44
[2022-05-02 05:40] VITALS: BP 128/46
[2022-05-02] MEDS: HEPARIN SOD (PORCINE) 5000UNITS/ML 1ML VIAL/SYRINGE SC SCH ×3 (05:43→20:49)
[2022-05-02] MEDS: LEVOTHYROXINE 75MCG TABLET (0.075MG) PO SCH (05:43)
[2022-05-02] MEDS: oxyCODONE 5MG TAB PO PRN ×2 (05:43→21:01)
[2022-05-02 06:29] LABS: HEMATOCRIT 24.1 % (36.0-47.0); HEMOGLOBIN 7.6 g/dl (12.0-15.5); MEAN CORPUSCULAR HEMOGLOBIN 31.4 pg (27.0-33.0); MEAN CORPUSCULAR HGB CONC 31.5 g/dl (32.0-36.5); MEAN CORPUSCULAR VOLUME 99.6 fl (80.0-96.0); PLATELET COUNT, AUTOMATED 189 10^3/uL (150-450); RED BLOOD COUNT 2.42 10^6/uL (4.00-5.40); WHITE BLOOD COUNT 9.4 10^3/uL (4.0-10.0)
[2022-05-02 06:54] LABS: CALCIUM LEVEL 9.2 MG/DL (8.8-10.2); CREATININE FOR GFR 3.31 MG/DL (0.55-1.30); GLOMERULAR FILTRATION RATE 14.7 (>39); MAGNESIUM LEVEL 2.8 MG/DL (1.8-2.4); POTASSIUM SERUM 3.6 MEQ/L (3.5-5.1)
[2022-05-02] MEDS: FERROUS SULFATE 325MG TAB PO SCH (08:54)
[2022-05-02] MEDS: CALCITRIOL 0.25 MCG CAP (S0169) PO SCH (08:54)
[2022-05-02] MEDS: CLOPIDOGREL 75 MG TAB PO SCH (08:54)
[2022-05-02] MEDS: VITAMIN D 1,000 INTERNATIONAL UNITS TABLET PO SCH (08:54)
[2022-05-02] MEDS: ASPIRIN 81MG ENTERIC TABLET PO SCH (08:54)
[2022-05-02] MEDS: MULTIVITAMINS/MINERALS THERAP 1 TAB PO SCH (08:54)
[2022-05-02] MEDS: AMIODARONE 200 MG TAB (PACERONE) PO SCH (08:54)
[2022-05-02] MEDS: METOPROLOL TART 50 MG TAB PO SCH (08:55)
[2022-05-02] MEDS: INSULIN LISPRO (NovoLOG) PER UNIT SC SCH ×4 (08:56→20:49)
[2022-05-02] MEDS: LEVEMIR (INSULIN DETEMIR) 1 UNITS/0.01ML SC SCH (08:57)
[2022-05-02 09:50] VITALS: BP 145/45
[2022-05-02] MEDS: ACETAMINOPHEN TAB 650MG DOSE (2X325MG) PO PRN ×2 (10:10→17:15)
[2022-05-02] MEDS ORDERED: ONDANSETRON 4MG 2ML VIAL IV ONE (10:45)
[2022-05-02 14:00] VITALS: BP 139/44
[2022-05-02] MEDS: ASCORBIC ACID 500 MG TAB PO SCH (20:49)
[2022-05-02] MEDS: ATORVASTATIN 20 MG TAB PO SCH (20:50)
[2022-05-02] MEDS: METOPROLOL TART 25 MG TABLET PO SCH (20:54)
[2022-05-02 21:07] VITALS: BP 127/50
[2022-05-03] MEDS: LEVOTHYROXINE 75MCG TABLET (0.075MG) PO SCH (05:41)
[2022-05-03] MEDS: oxyCODONE 5MG TAB PO PRN ×2 (05:41→21:42)
[2022-05-03] MEDS: HEPARIN SOD (PORCINE) 5000UNITS/ML 1ML VIAL/SYRINGE SC SCH ×4 (05:42→23:08)
[2022-05-03 05:49] VITALS: BP 155/52
[2022-05-03 06:17] LABS: HEMATOCRIT 22.5 % (36.0-47.0); HEMOGLOBIN 7.1 g/dl (12.0-15.5); MEAN CORPUSCULAR HEMOGLOBIN 31.4 pg (27.0-33.0); MEAN CORPUSCULAR HGB CONC 31.6 g/dl (32.0-36.5); MEAN CORPUSCULAR VOLUME 99.6 fl (80.0-96.0); PLATELET COUNT, AUTOMATED 160 10^3/uL (150-450); RED BLOOD COUNT 2.26 10^6/uL (4.00-5.40); WHITE BLOOD COUNT 8.8 10^3/uL (4.0-10.0)
[2022-05-03 06:40] LABS: CALCIUM LEVEL 8.2 MG/DL (8.8-10.2); CREATININE FOR GFR 3.71 MG/DL (0.55-1.30); GLOMERULAR FILTRATION RATE 12.9 (>39); MAGNESIUM LEVEL 2.8 MG/DL (1.8-2.4); PHOSPHORUS LEVEL 3.8 MG/DL (2.5-4.9); POTASSIUM SERUM 3.8 MEQ/L (3.5-5.1)
[2022-05-03] MEDS: METOPROLOL TART 25 MG TABLET PO SCH ×2 (07:39→21:47)
[2022-05-03] MEDS: INSULIN LISPRO (NovoLOG) PER UNIT SC SCH ×4 (07:53→21:00)
[2022-05-03] MEDS: LEVEMIR (INSULIN DETEMIR) 1 UNITS/0.01ML SC SCH (07:53)
[2022-05-03] MEDS: ASPIRIN 81MG ENTERIC TABLET PO SCH (07:54)
[2022-05-03] MEDS: FERROUS SULFATE 325MG TAB PO SCH (07:54)
[2022-05-03] MEDS: CLOPIDOGREL 75 MG TAB PO SCH (07:54)
[2022-05-03] MEDS: AMIODARONE 200 MG TAB (PACERONE) PO SCH (07:54)
[2022-05-03] MEDS: VITAMIN D 1,000 INTERNATIONAL UNITS TABLET PO SCH (07:54)
[2022-05-03] MEDS: MULTIVITAMINS/MINERALS THERAP 1 TAB PO SCH (07:54)
[2022-05-03] MEDS: CALCITRIOL 0.25 MCG CAP (S0169) PO SCH (07:55)
[2022-05-03] MEDS ORDERED: DARBEPOETIN 100 MCG/0.5 ML *DIALYSIS* SYRINGE (J0882) IV SCH (08:05)
[2022-05-03 09:53] LABS: VITAMIN B12 LEVEL 374 PG/ML
[2022-05-03 09:54] LABS: FOLATE > 24.0 NG/ML
[2022-05-03] MEDS: IRON SUCROSE 100MG 5ML VIAL (J1756 PER 1MG) IV SCH (10:36)
[2022-05-03 10:54] LABS: HEPATITIS B CORE ANTIBODY IGM NEGATIVE (NEGATIVE); HEPATITIS B SURFACE ANTIBODY NEGATIVE (POSITIVE); HEPATITIS B SURFACE ANTIGEN NEGATIVE (NEGATIVE); HEPATITIS C VIRUS ABY INDEX < 0.0 INDEX (<0.8)
[2022-05-03 14:00] VITALS: BP 154/54
[2022-05-03] MEDS: CIPROFLOXACIN 250MG TAB PO SCH (14:11)
[2022-05-03 20:42] VITALS: BP 151/53
[2022-05-03] MEDS: ATORVASTATIN 20 MG TAB PO SCH (21:40)
[2022-05-03] MEDS: ASCORBIC ACID 500 MG TAB PO SCH (21:43)
[2022-05-04 05:25] VITALS: BP 126/41
[2022-05-04] MEDS: CIPROFLOXACIN 250MG TAB PO SCH (06:11)
[2022-05-04] MEDS: LEVOTHYROXINE 75MCG TABLET (0.075MG) PO SCH (06:11)
[2022-05-04] MEDS: HEPARIN SOD (PORCINE) 5000UNITS/ML 1ML VIAL/SYRINGE SC SCH ×3 (06:11→20:54)
[2022-05-04 06:28] LABS: HEMATOCRIT 24.2 % (36.0-47.0); HEMOGLOBIN 7.4 g/dl (12.0-15.5); MEAN CORPUSCULAR HEMOGLOBIN 31.4 pg (27.0-33.0); MEAN CORPUSCULAR HGB CONC 30.6 g/dl (32.0-36.5); MEAN CORPUSCULAR VOLUME 102.5 fl (80.0-96.0); PLATELET COUNT, AUTOMATED 157 10^3/uL (150-450); RED BLOOD COUNT 2.36 10^6/uL (4.00-5.40); WHITE BLOOD COUNT 9.6 10^3/uL (4.0-10.0)
[2022-05-04 06:47] LABS: ALBUMIN 2.9 GM/DL (3.2-5.2); CALCIUM LEVEL 8.8 MG/DL (8.8-10.2); CREATININE FOR GFR 2.39 MG/DL (0.55-1.30); GLOMERULAR FILTRATION RATE 21.3 (>39); PHOSPHORUS LEVEL 3.1 MG/DL (2.5-4.9); POTASSIUM SERUM 4.2 MEQ/L (3.5-5.1)
[2022-05-04] MEDS: FERROUS SULFATE 325MG TAB PO SCH (08:45)
[2022-05-04] MEDS: VITAMIN D 1,000 INTERNATIONAL UNITS TABLET PO SCH (08:45)
[2022-05-04] MEDS: ASPIRIN 81MG ENTERIC TABLET PO SCH (08:45)
[2022-05-04] MEDS: CLOPIDOGREL 75 MG TAB PO SCH (08:46)
[2022-05-04] MEDS: AMIODARONE 200 MG TAB (PACERONE) PO SCH (08:46)
[2022-05-04] MEDS: CALCITRIOL 0.25 MCG CAP (S0169) PO SCH (08:46)
[2022-05-04] MEDS: MULTIVITAMINS/MINERALS THERAP 1 TAB PO SCH (08:46)
[2022-05-04] MEDS: METOPROLOL TART 25 MG TABLET PO SCH ×2 (08:46→20:53)
[2022-05-04] MEDS: LEVEMIR (INSULIN DETEMIR) 1 UNITS/0.01ML SC SCH (08:47)
[2022-05-04] MEDS: INSULIN LISPRO (NovoLOG) PER UNIT SC SCH ×4 (08:47→20:54)
[2022-05-04 14:00] VITALS: BP 133/49
[2022-05-04 20:49] VITALS: BP 129/48
[2022-05-04] MEDS: ATORVASTATIN 20 MG TAB PO SCH (20:52)
[2022-05-04] MEDS: ASCORBIC ACID 500 MG TAB PO SCH (20:54)
[2022-05-05] VITALS (10 sets, daily range): BP systolic 118–151; BP diastolic 48–100
[2022-05-05] MEDS ORDERED: SODIUM CHLORIDE 0.9% 1000ML IV PRN (00:20)
[2022-05-05] MEDS: oxyCODONE 5MG TAB PO PRN (02:22)
[2022-05-05 06:28] LABS: HEMATOCRIT 23.3 % (36.0-47.0); HEMOGLOBIN 7.1 g/dl (12.0-15.5); MEAN CORPUSCULAR HEMOGLOBIN 31.1 pg (27.0-33.0); MEAN CORPUSCULAR HGB CONC 30.5 g/dl (32.0-36.5); MEAN CORPUSCULAR VOLUME 102.2 fl (80.0-96.0); PLATELET COUNT, AUTOMATED 145 10^3/uL (150-450); RED BLOOD COUNT 2.28 10^6/uL (4.00-5.40); WHITE BLOOD COUNT 10.9 10^3/uL (4.0-10.0)
[2022-05-05] MEDS: HEPARIN SOD (PORCINE) 5000UNITS/ML 1ML VIAL/SYRINGE SC SCH ×2 (06:30→14:00)
[2022-05-05] MEDS: INSULIN LISPRO (NovoLOG) PER UNIT SC SCH ×2 (06:31→11:37)
[2022-05-05] MEDS: LEVEMIR (INSULIN DETEMIR) 1 UNITS/0.01ML SC SCH (06:31)
[2022-05-05] MEDS: AMIODARONE 200 MG TAB (PACERONE) PO SCH (06:31)
[2022-05-05] MEDS: CALCITRIOL 0.25 MCG CAP (S0169) PO SCH (06:31)
[2022-05-05] MEDS: VITAMIN D 1,000 INTERNATIONAL UNITS TABLET PO SCH (06:32)
[2022-05-05] MEDS: FERROUS SULFATE 325MG TAB PO SCH (06:32)
[2022-05-05] MEDS: ASPIRIN 81MG ENTERIC TABLET PO SCH (06:32)
[2022-05-05] MEDS: LEVOTHYROXINE 75MCG TABLET (0.075MG) PO SCH (06:32)
[2022-05-05] MEDS: CIPROFLOXACIN 250MG TAB PO SCH (06:32)
[2022-05-05] MEDS: CLOPIDOGREL 75 MG TAB PO SCH (06:32)
[2022-05-05] MEDS: MULTIVITAMINS/MINERALS THERAP 1 TAB PO SCH (06:32)
[2022-05-05] MEDS: METOPROLOL TART 25 MG TABLET PO SCH (06:34)
[2022-05-05 06:50] LABS: ALBUMIN 2.7 GM/DL (3.2-5.2); CALCIUM LEVEL 8.2 MG/DL (8.8-10.2); CREATININE FOR GFR 2.72 MG/DL (0.55-1.30); GLOMERULAR FILTRATION RATE 18.4 (>39); PHOSPHORUS LEVEL 2.7 MG/DL (2.5-4.9); POTASSIUM SERUM 4.5 MEQ/L (3.5-5.1)
[2022-05-05] MEDS: IRON SUCROSE 100MG 5ML VIAL (J1756 PER 1MG) IV SCH (13:32)
[2022-05-05] MEDS ORDERED: CIPR-250 PO (15:15)
[2022-05-06] MEDS ORDERED: LEVEMIR (INSULIN DETEMIR) 1 UNITS/0.01ML SC SCH (09:00)
== END 2022-05-05 18:01 | disposition home health service (06) | DRG 673 ==
LOC: M ED 04:42 → M ED INP 09:41 → ENRESERV 10:18 → M MSPAV 19:50
PROVIDERS: ADMIT Internal Medicine; ATTEND Student in an Organized Health Care Education/Training Program
PROC: 5A1D70Z Performance of Urinary Filtration, Intermittent, Less than 6 Hours Per Day (ICD-10-PCS; 2022-05-01)
PROC: 0JH63XZ Insertion of Tunneled Vascular Access Device into Chest Subcutaneous Tissue and Fascia, Percutaneous Approach (ICD-10-PCS; principal; 2022-05-01 14:00)
PROC: 30233N1 Transfusion of Nonautologous Red Blood Cells into Peripheral Vein, Percutaneous Approach (ICD-10-PCS; 2022-05-05)
DX: N17.9 Acute kidney failure, unspecified (principal); I50.33 Acute on chronic diastolic (congestive) heart failure; N39.0 Urinary tract infection, site not specified; E87.1 Hypo-osmolality and hyponatremia; I13.2 Hypertensive heart and chronic kidney disease with heart failure and with stage 5 chronic kidney disease, or end stage renal disease; N18.6 End stage renal disease; G89.29 Other chronic pain; Z95.2 Presence of prosthetic heart valve; I48.91 Unspecified atrial fibrillation; Z95.1 Presence of aortocoronary bypass graft; K21.9 Gastro-esophageal reflux disease without esophagitis; G47.33 Obstructive sleep apnea (adult) (pediatric); E11.22 Type 2 diabetes mellitus with diabetic chronic kidney disease; E11.319 Type 2 diabetes mellitus with unspecified diabetic retinopathy without macular edema; E03.9 Hypothyroidism, unspecified; E78.5 Hyperlipidemia, unspecified; E78.00 Pure hypercholesterolemia, unspecified; I25.10 Atherosclerotic heart disease of native coronary artery without angina pectoris; R53.1 Weakness; K59.00 Constipation, unspecified; D63.1 Anemia in chronic kidney disease; Z88.2 Allergy status to sulfonamides; Z79.899 Other long term (current) drug therapy; Z79.82 Long term (current) use of aspirin; I35.0 Nonrheumatic aortic (valve) stenosis

== ENCOUNTER → 2022-05-07 | Outpatient (CLI) | payer MEDICARE, OTHER ==
[~2022-05-07] MED LIST changes: +CALC1CAP31 PO; +CIPR-250 PO; +CLOP75TA2 PO; +JANU25TA PO; +METO25TA PO; +SYNT75TA PO; +VITA100093 PO
[2022-05-07 18:05] LABS: BASO % 0.3 % (0.0-1.0); EOS % 0.4 % (0.0-3.0); HEMATOCRIT 31.3 % (36.0-47.0); LYMPH # 0.9 10^3/uL (1.5-5.0); LYMPH % 9.3 % (24.0-44.0); MEAN CORPUSCULAR HEMOGLOBIN 31.2 pg (27.0-33.0); MEAN CORPUSCULAR HGB CONC 31.9 g/dl (32.0-36.5); MEAN CORPUSCULAR VOLUME 97.5 fl (80.0-96.0); MONO # 0.8 10^3/uL (0.0-0.8); MONO % 8.5 % (2.0-8.0); NEUTROPHILS % 81.1 % (36.0-66.0); PLATELET COUNT, AUTOMATED 144 10^3/uL (150-450); RED BLOOD COUNT 3.21 10^6/uL (4.00-5.40); WHITE BLOOD COUNT 9.9 10^3/uL (4.0-10.0)
[2022-05-07 18:59] LABS: ALBUMIN 2.9 GM/DL (3.2-5.2); BILIRUBIN,TOTAL 0.9 MG/DL (0.2-1.0); CALCIUM LEVEL 8.3 MG/DL (8.8-10.2); CREATININE FOR GFR 1.82 MG/DL (0.55-1.30); GLOMERULAR FILTRATION RATE 29.2 (>39); POTASSIUM SERUM 3.9 MEQ/L (3.5-5.1)
== END ==
LOC: M PLALAB 13:54
PROVIDERS: ATTEND Internal Medicine Hematology
DX: Z01.818 Encounter for other preprocedural examination (principal)

== ENCOUNTER → 2022-05-21 | Outpatient (CLI) | payer MEDICARE, OTHER | LOC: M RAD 12:10 | PROVIDERS: ATTEND Internal Medicine Nephrology | DX: N18.6 End stage renal disease (principal); Z95.828 Presence of other vascular implants and grafts ==

== ENCOUNTER 2022-05-22 15:57 | Emergency (ER) | payer MEDICARE, OTHER ==
[~2022-05-22] VITALS: Ht 170.2 cm; Wt 79.5 kg
[2022-05-22] MEDS ORDERED: ONDANSETRON 4MG 2ML VIAL IV ONE (16:15)
[2022-05-22] MEDS ORDERED: MORPHINE 2 MG/ML 1ML VIAL IV ONE (16:40)
[2022-05-22] MEDS ORDERED: niCARdipine IV 40 MG in IV 1 EA IV SCH (16:55)
[2022-05-22 17:04] LABS: HEMATOCRIT 34.8 % (36.0-47.0); HEMOGLOBIN 10.9 g/dl (12.0-15.5); MEAN CORPUSCULAR HEMOGLOBIN 31.7 pg (27.0-33.0); MEAN CORPUSCULAR HGB CONC 31.3 g/dl (32.0-36.5); MEAN CORPUSCULAR VOLUME 101.2 fl (80.0-96.0); PLATELET COUNT, AUTOMATED 224 10^3/uL (150-450); RED BLOOD COUNT 3.44 10^6/uL (4.00-5.40); WHITE BLOOD COUNT 9.7 10^3/uL (4.0-10.0)
[2022-05-22 17:06] LABS: INR 0.94
[2022-05-22 17:07] LABS: PARTIAL THROMBOPLASTIN TIME 26.4 SECONDS (25.9-37.0)
[2022-05-22 17:28] LABS: RSV AMPLIFICATION NEGATIVE (NEGATIVE)
[2022-05-22 17:36] LABS: CALCIUM LEVEL 9.6 MG/DL (8.8-10.2); CREATININE FOR GFR 2.58 MG/DL (0.55-1.30); GLOMERULAR FILTRATION RATE 19.5 (>39); POTASSIUM SERUM 3.7 MEQ/L (3.5-5.1)
[2022-05-22 17:40] VITALS: BP 132/63
== END 2022-05-22 17:44 | disposition short-term general hospital (02) ==
LOC: M ED 15:57
DX: S06.5X0A Traumatic subdural hemorrhage without loss of consciousness, initial encounter (principal); S06.6X0A Traumatic subarachnoid hemorrhage without loss of consciousness, initial encounter; W01.0XXA Fall on same level from slipping, tripping and stumbling without subsequent striking against object, initial encounter; Y92.410 Unspecified street and highway as the place of occurrence of the external cause; I13.2 Hypertensive heart and chronic kidney disease with heart failure and with stage 5 chronic kidney disease, or end stage renal disease; I50.9 Heart failure, unspecified; Z99.2 Dependence on renal dialysis; M43.02 Spondylolysis, cervical region; M48.02 Spinal stenosis, cervical region; J90 Pleural effusion, not elsewhere classified; G47.33 Obstructive sleep apnea (adult) (pediatric); Z88.2 Allergy status to sulfonamides; Z95.9 Presence of cardiac and vascular implant and graft, unspecified; Z79.4 Long term (current) use of insulin; Z79.890 Hormone replacement therapy; Z79.82 Long term (current) use of aspirin; Z79.899 Other long term (current) drug therapy
CPT/HCPCS: 70450; 70486; 71045; 72125; 80048; 85027; 85610; 85730; 87631; 93041; 94760; 96365; 96375; 99285; J2270; J2405

== ENCOUNTER → 2022-06-24 | Outpatient (CLI) | payer MEDICARE, OTHER ==
[2022-06-24 15:42] LABS: APPEARANCE, URINE MANUAL HAZY (CLEAR); BILIRUBIN, URINE MANUAL NEGATIVE (NEGATIVE); BLOOD URINE MANUAL NEGATIVE (NEGATIVE); COLOR, URINE MANUAL YELLOW (YELLOW); GLUCOSE, URINE (UA) MANUAL NEGATIVE (NEGATIVE); KETONE, URINE MANUAL NEGATIVE (NEGATIVE); LEUKOCYTE ESTERASE, URINE MAN POSITIVE (NEGATIVE); NITRITE, URINE MANUAL NEGATIVE (NEGATIVE); PROTEIN, URINE MANUAL TRACE mg/dL (NEGATIVE); SPECIFIC GRAVITY,URINE MANUAL 1.015 (1.002-1.035); UROBILINOGEN, URINE MANUAL NORMAL (NORMAL)
[2022-06-24 15:43] LABS: BASO % 0.3 % (0.0-1.0); EOS # 0.3 10^3/uL (0.0-0.5); HEMATOCRIT 26.6 % (36.0-47.0); HEMOGLOBIN 8.3 g/dl (12.0-15.5); LYMPH % 6.8 % (24.0-44.0); MEAN CORPUSCULAR HEMOGLOBIN 30.6 pg (27.0-33.0); MEAN CORPUSCULAR HGB CONC 31.2 g/dl (32.0-36.5); MEAN CORPUSCULAR VOLUME 98.2 fl (80.0-96.0); MONO # 0.8 10^3/uL (0.0-0.8); MONO % 5.8 % (2.0-8.0); NEUTROPHILS # 11.9 10^3/uL (1.5-8.5); NEUTROPHILS % 84.5 % (36.0-66.0); PLATELET COUNT, AUTOMATED 251 10^3/uL (150-450); RED BLOOD COUNT 2.71 10^6/uL (4.00-5.40); WHITE BLOOD COUNT 14.1 10^3/uL (4.0-10.0)
[2022-06-24 15:57] LABS: WBC, URINE 40-50 /hpf (0-3)
[2022-06-24 15:58] LABS: BACTERIA, URINE SMALL AMOUNT; RBC, URINE NONE SEEN /hpf (0-3); SQUAMOUS EPITHELIAL CELL URINE SMALL AMOUNT /hpf (SMALL AMT)
[2022-06-24 15:59] LABS: TRANSITIONAL EPI CELLS, URINE SMALL AMOUNT /hpf
[2022-06-24 16:25] LABS: CREATININE FOR GFR 3.19 MG/DL (0.55-1.30); GLOMERULAR FILTRATION RATE 15.3 (>39); PHOSPHORUS LEVEL 4.5 MG/DL (2.5-4.9); POTASSIUM SERUM 4.6 MEQ/L (3.5-5.1)
[2022-06-24 16:32] LABS: CREATININE, URINE 95.4 MG/DL; MALB URINE SIEMENS 64.7 MG/L; MAU/CREAT RATIO 67.8 MCG/MG (0.0-30.0)
[2022-06-24 17:49] LABS: HEMOGLOBIN A1c 7.1 %
== END ==
LOC: M PLAIMG 13:07
PROVIDERS: ATTEND Family Medicine
DX: E11.22 Type 2 diabetes mellitus with diabetic chronic kidney disease (principal); N18.6 End stage renal disease; D63.1 Anemia in chronic kidney disease; I50.32 Chronic diastolic (congestive) heart failure; R06.02 Shortness of breath; J90 Pleural effusion, not elsewhere classified

== ENCOUNTER → 2022-07-15 | Outpatient (REF) | payer MEDICARE, OTHER | LOC: M LAB REF 16:47 | PROVIDERS: ATTEND Internal Medicine Nephrology | DX: N39.0 Urinary tract infection, site not specified (principal) ==

== ENCOUNTER → 2022-07-19 | Outpatient (CLI) | payer MEDICARE, OTHER | LOC: M RAD 08:20 | PROVIDERS: ATTEND Nurse Practitioner Family | DX: I72.4 Aneurysm of artery of lower extremity (principal) ==

== ENCOUNTER → 2022-08-20 | Outpatient (CLI) | payer MEDICARE, OTHER ==
[~2022-08-20] MED LIST changes: +CLOP75TA99 PO; -PLAV1TAB2 PO
[2022-08-20 13:52] LABS: HEMOGLOBIN A1c 6.9 % (4.0-6.0)
== END ==
LOC: M PLALAB 09:13
PROVIDERS: ATTEND Family Medicine
DX: E11.22 Type 2 diabetes mellitus with diabetic chronic kidney disease (principal); N18.9 Chronic kidney disease, unspecified

== ENCOUNTER 2022-08-31 09:08 | Inpatient (IN) | payer MEDICARE, OTHER ==
[~2022-08-31] VITALS: Ht 170.2 cm; Wt 81.9 kg
[2022-08-31] MEDS ORDERED: ONDA40IN IV (09:31)
[2022-08-31] MEDS ORDERED: OXYC1TAB23 PO (09:31)
[2022-08-31] MEDS ORDERED: HYDR25TA PO (09:31)
[2022-08-31] MEDS ORDERED: ACET32TAB PO (09:31)
[2022-08-31] MEDS ORDERED: ONDA-83 PO (09:31)
[2022-08-31] MEDS ORDERED: ULOR80TA PO (09:31)
[2022-08-31] MEDS ORDERED: CVS10CAP7 PO (09:31)
[2022-08-31] MEDS ORDERED: DOCU100C16 PO (09:31)
[2022-08-31] MEDS ORDERED: SPIR-10 PO (09:31)
[2022-08-31] MEDS ORDERED: METH-1164 PO ×2 (09:31→17:51)
[2022-08-31 13:52] LABS: BASO % 0.3 % (0.0-1.0); EOS % 0.4 % (0.0-3.0); HEMATOCRIT 34.7 % (36.0-47.0); HEMOGLOBIN 10.6 g/dl (12.0-15.5); LYMPH % 12.8 % (24.0-44.0); MEAN CORPUSCULAR HEMOGLOBIN 30.3 pg (27.0-33.0); MEAN CORPUSCULAR HGB CONC 30.5 g/dl (32.0-36.5); MEAN CORPUSCULAR VOLUME 99.1 fl (80.0-96.0); MONO # 0.6 10^3/uL (0.0-0.8); MONO % 7.4 % (2.0-8.0); NEUTROPHILS # 6.2 10^3/uL (1.5-8.5); NEUTROPHILS % 78.6 % (36.0-66.0); PLATELET COUNT, AUTOMATED 269 10^3/uL (150-450); WHITE BLOOD COUNT 7.9 10^3/uL (4.0-10.0)
[2022-08-31 14:13] LABS: POTASSIUM SERUM 5.3 MMOL/L (3.5-5.1)
[2022-08-31 14:14] LABS: INR 1.12; PROTHROMBIN TIME 14.6 SECONDS (12.5-14.5)
[2022-08-31 14:19] LABS: CALCIUM LEVEL 9.6 MG/DL (8.3-10.6)
[2022-08-31 14:21] LABS: BILIRUBIN,DIRECT 0.2 MG/DL (<0.4); BILIRUBIN,TOTAL 0.4 MG/DL (0.3-1.2); CREATININE FOR GFR 5.15 MG/DL (0.55-1.30); GLOMERULAR FILTRATION RATE 8.8 (>39); TOTAL PROTEIN 7.2 G/DL (5.7-8.2)
[2022-08-31 15:04] LABS: CK-MB VALUE MASS 1.1 NG/ML (<3.6)
[2022-08-31 15:06] LABS: MB/CK RELATIVE INDEX 1.57 (< OR =4)
[2022-08-31] MEDS ORDERED: MOM 30ML SUSPENSION UDC PO PRN (17:30)
[2022-08-31] MEDS ORDERED: MAALOX 30 ML SUSP *UDC PO PRN (17:30)
[2022-08-31] MEDS ORDERED: GLUCAGON INJ 1MG VIAL SC PRN (17:35)
[2022-08-31] MEDS ORDERED: GLUCOSE 4GM CHEW TABLET PO PRN (17:35)
[2022-08-31] MEDS ORDERED: DEXTROSE 50% 50 ML SYRINGE IV PRN (17:35)
[2022-08-31] MEDS ORDERED: LEVO100T54 PO (17:51)
[2022-08-31] MEDS ORDERED: TORS100T PO (17:51)
[2022-08-31] MEDS ORDERED: ONDA4TAB6 PO (17:51)
[2022-08-31] MEDS ORDERED: HOME MED LIST COMPLETE! XX SCH (17:55)
[2022-08-31 18:11] VITALS: BP 146/65
[2022-08-31] MEDS ORDERED: ONDANSETRON 4MG ORAL DISINTEGRATING TAB PO PRN (18:15)
[2022-08-31] MEDS ORDERED: FLUTICASONE PROP 0.05% NASAL SPRAY 16 GM (FLONASE) NARES PRN (18:15)
[2022-08-31] MEDS ORDERED: NITROGLYCERIN 0.4MG SUBL TABLET SL PRN ×2 (18:15→18:30)
[2022-08-31] MEDS: FUROSEMIDE 100MG/10ML VIAL (J1940) IV SCH (18:16)
[2022-08-31 20:00] VITALS: BP 112/57
[2022-08-31] MEDS: CALCIUM/VITAMIN D 500 MG TAB PO SCH (20:24)
[2022-08-31] MEDS: DOCUSATE SODIUM 100MG CAPSULE PO SCH (20:25)
[2022-08-31] MEDS: ASCORBIC ACID 500 MG TAB PO SCH (20:25)
[2022-08-31] MEDS: methocarbamoL 500 MG TAB PO SCH (20:25)
[2022-08-31] MEDS: LEVEMIR (INSULIN DETEMIR) 1 UNITS/0.01ML SC SCH (20:28)
[2022-08-31] MEDS ORDERED: VITAMIN D 1,000 INTERNATIONAL UNITS TABLET PO SCH (21:00)
[2022-08-31] MEDS ORDERED: MAGNESIUM GLUCONATE 500 MG TAB PO SCH (21:00)
[2022-09-01] VITALS: BP 134/63
[2022-09-01] MEDS ORDERED: diphenhydrAMINE 25MG CAP PO ONE
[2022-09-01] MEDS: FUROSEMIDE 100MG/10ML VIAL (J1940) IV SCH (01:56)
[2022-09-01 01:59] LABS: APPEARANCE, URINE MANUAL HAZY (CLEAR); COLOR, URINE MANUAL YELLOW (YELLOW)
[2022-09-01 02:00] LABS: BILIRUBIN, URINE MANUAL NEGATIVE (NEGATIVE); BLOOD URINE MANUAL NEGATIVE (NEGATIVE); GLUCOSE, URINE (UA) MANUAL NEGATIVE (NEGATIVE); KETONE, URINE MANUAL NEGATIVE (NEGATIVE); LEUKOCYTE ESTERASE, URINE MAN POSITIVE (NEGATIVE); NITRITE, URINE MANUAL POSITIVE (NEGATIVE); PROTEIN, URINE MANUAL NEGATIVE (NEGATIVE); SPECIFIC GRAVITY,URINE MANUAL 1.015 (1.002-1.035); UROBILINOGEN, URINE MANUAL NORMAL (NORMAL)
[2022-09-01 02:21] LABS: SQUAMOUS EPITHELIAL CELL URINE SMALL AMOUNT /hpf (SMALL AMT)
[2022-09-01 02:22] LABS: BACTERIA, URINE LARGE AMOUNT; TRANSITIONAL EPI CELLS, URINE SMALL AMOUNT /hpf
[2022-09-01 02:23] LABS: MUCUS, URINE SMALL AMOUNT (NEGATIVE)
[2022-09-01 04:00] VITALS: BP 144/65
[2022-09-01] MEDS: methocarbamoL 500 MG TAB PO PRN (05:25)
[2022-09-01] MEDS: HEPARIN SOD (PORCINE) 5000UNITS/ML 1ML VIAL/SYRINGE SC SCH ×3 (05:42→20:31)
[2022-09-01 06:01] LABS: HEMATOCRIT 28.9 % (36.0-47.0); HEMOGLOBIN 9.3 g/dl (12.0-15.5); MEAN CORPUSCULAR HEMOGLOBIN 31.3 pg (27.0-33.0); MEAN CORPUSCULAR HGB CONC 32.2 g/dl (32.0-36.5); MEAN CORPUSCULAR VOLUME 97.3 fl (80.0-96.0); PLATELET COUNT, AUTOMATED 226 10^3/uL (150-450); RED BLOOD COUNT 2.97 10^6/uL (4.00-5.40); WHITE BLOOD COUNT 7.5 10^3/uL (4.0-10.0)
[2022-09-01] MEDS: LEVOTHYROXINE 100MCG TABLET (0.1MG) PO SCH (06:08)
[2022-09-01 06:22] LABS: POTASSIUM SERUM 4.6 MMOL/L (3.5-5.1)
[2022-09-01 06:28] LABS: CALCIUM LEVEL 9.2 MG/DL (8.3-10.6)
[2022-09-01 06:30] LABS: CREATININE FOR GFR 5.15 MG/DL (0.55-1.30); GLOMERULAR FILTRATION RATE 8.8 (>39)
[2022-09-01 07:37] VITALS: BP 141/65
[2022-09-01] MEDS: LEVEMIR (INSULIN DETEMIR) 1 UNITS/0.01ML SC SCH ×2 (07:56→20:32)
[2022-09-01] MEDS: CALCIUM/VITAMIN D 500 MG TAB PO SCH (08:00)
[2022-09-01] MEDS: AMIODARONE 200 MG TAB (PACERONE) PO SCH (08:00)
[2022-09-01] MEDS: CALCITRIOL 0.25 MCG CAP (S0169) PO SCH (08:00)
[2022-09-01] MEDS: ATORVASTATIN 20 MG TAB PO SCH (08:00)
[2022-09-01] MEDS: DOCUSATE SODIUM 100MG CAPSULE PO SCH ×2 (08:00→20:30)
[2022-09-01] MEDS ORDERED: LIDOCAINE 1% MDV 20ML VIAL As Ordered ONE ×2 (08:45→09:57)
[2022-09-01] MEDS ORDERED: fentaNYL 100 MCG/2 ML INJECTION As Ordered ONE (08:45)
[2022-09-01] MEDS ORDERED: HEPARIN 1,000UNITS/ML 10ML VIAL (FOR RADIOLOGY & DIALYSIS ONLY) As Ordered ONE (08:45)
[2022-09-01] MEDS ORDERED: MIDAZOLAM INJ 2MG/2ML VIAL (J2250 PER 1MG) As Ordered ONE (08:45)
[2022-09-01] MEDS ORDERED: FERROUS SULFATE 325MG TAB PO SCH (09:00)
[2022-09-01] MEDS ORDERED: HEPARIN 1,000UNITS/ML 10ML VIAL (FOR RADIOLOGY & DIALYSIS ONLY) XX SCH (09:20)
[2022-09-01] MEDS ORDERED: DARBEPOETIN 100MCG/0.5ML *DIALYSIS* SYRINGE IV SCH (09:20)
[2022-09-01] MEDS ORDERED: HEPARIN 1,000UNITS/ML 10ML VIAL (FOR RADIOLOGY & DIALYSIS ONLY) IV PRN (09:20)
[2022-09-01] MEDS ORDERED: ceFAZolin 2 GM/D5W 50 ML IV BAG As Ordered ONE (09:34)
[2022-09-01 12:18] VITALS: BP 153/65
[2022-09-01] MEDS: ACETAMINOPHEN TAB 650MG DOSE (2X325MG) PO PRN ×3 (12:26→21:13)
[2022-09-01 12:55] LABS: HEPATITIS B SURFACE ANTIBODY NEGATIVE (POSITIVE)
[2022-09-01 13:08] LABS: HEPATITIS B SURFACE ANTIGEN NEGATIVE (NEGATIVE)
[2022-09-01 13:29] LABS: HEPATITIS C VIRUS ABY INDEX 0.1 INDEX (<0.8)
[2022-09-01 13:30] LABS: HEPATITIS B CORE ANTIBODY IGM NEGATIVE (NEGATIVE)
[2022-09-01 16:33] VITALS: BP 166/67
[2022-09-01 20:00] VITALS: BP 140/60
[2022-09-01] MEDS: methocarbamoL 500 MG TAB PO SCH (20:30)
[2022-09-01] MEDS: ASCORBIC ACID 500 MG TAB PO SCH (20:31)
[2022-09-01] MEDS ORDERED: RAMELTEON 8 MG TAB (ROZEREM) PO ONE (21:00)
[2022-09-02] VITALS: BP 151/91
[2022-09-02 04:00] VITALS: BP 125/56
[2022-09-02] MEDS: ACETAMINOPHEN TAB 650MG DOSE (2X325MG) PO PRN ×3 (05:00→19:23)
[2022-09-02] MEDS: LEVOTHYROXINE 100MCG TABLET (0.1MG) PO SCH (06:09)
[2022-09-02] MEDS: HEPARIN SOD (PORCINE) 5000UNITS/ML 1ML VIAL/SYRINGE SC SCH ×3 (06:09→21:20)
[2022-09-02] MEDS: methocarbamoL 500 MG TAB PO PRN (06:14)
[2022-09-02 08:00] VITALS: BP 138/65
[2022-09-02 08:35] LABS: HEMATOCRIT 29.3 % (36.0-47.0); MEAN CORPUSCULAR HEMOGLOBIN 30.2 pg (27.0-33.0); MEAN CORPUSCULAR HGB CONC 30.7 g/dl (32.0-36.5); MEAN CORPUSCULAR VOLUME 98.3 fl (80.0-96.0); PLATELET COUNT, AUTOMATED 200 10^3/uL (150-450); RED BLOOD COUNT 2.98 10^6/uL (4.00-5.40); WHITE BLOOD COUNT 7.4 10^3/uL (4.0-10.0)
[2022-09-02] MEDS ORDERED: HEPARIN 1,000UNITS/ML 10ML VIAL (FOR RADIOLOGY & DIALYSIS ONLY) IV PRN (08:50)
[2022-09-02] MEDS ORDERED: SODIUM CHLORIDE 0.9% 1000ML IV PRN (08:50)
[2022-09-02] MEDS ORDERED: HEPARIN 1,000UNITS/ML 10ML VIAL (FOR RADIOLOGY & DIALYSIS ONLY) XX SCH (08:50)
[2022-09-02 09:01] LABS: CALCIUM LEVEL 8.4 MG/DL (8.3-10.6); CREATININE FOR GFR 3.22 MG/DL (0.55-1.30); GLOMERULAR FILTRATION RATE 15.1 (>39); POTASSIUM SERUM 4.8 MMOL/L (3.5-5.1)
[2022-09-02] MEDS: DOCUSATE SODIUM 100MG CAPSULE PO SCH ×2 (09:07→21:19)
[2022-09-02] MEDS: AMIODARONE 200 MG TAB (PACERONE) PO SCH (09:07)
[2022-09-02] MEDS: ATORVASTATIN 20 MG TAB PO SCH (09:07)
[2022-09-02] MEDS: CALCITRIOL 0.25 MCG CAP (S0169) PO SCH (09:07)
[2022-09-02] MEDS: LEVEMIR (INSULIN DETEMIR) 1 UNITS/0.01ML SC SCH ×2 (09:08→21:21)
[2022-09-02] MEDS ORDERED: MIRALAX *UNIT DOSE* 17GM PACKET PO PRN (15:10)
[2022-09-02 16:45] VITALS: BP 158/69
[2022-09-02 21:10] VITALS: BP 142/60
[2022-09-02] MEDS: ASCORBIC ACID 500 MG TAB PO SCH (21:20)
[2022-09-02] MEDS: methocarbamoL 500 MG TAB PO SCH (21:35)
[2022-09-02] MEDS ORDERED: RAMELTEON 8 MG TAB (ROZEREM) PO PRN (22:05)
[2022-09-03] MEDS: ACETAMINOPHEN TAB 650MG DOSE (2X325MG) PO PRN ×3 (00:40→14:48)
[2022-09-03] MEDS ORDERED: LIDOCAINE 5% (LIDODERM) PATCH TD ONE (03:00)
[2022-09-03 04:11] VITALS: BP 142/66
[2022-09-03 05:10] LABS: BASO % 0.4 % (0.0-1.0); EOS # 0.2 10^3/uL (0.0-0.5); EOS % 2.8 % (0.0-3.0); HEMOGLOBIN 8.8 g/dl (12.0-15.5); LYMPH # 1.1 10^3/uL (1.5-5.0); LYMPH % 13.4 % (24.0-44.0); MEAN CORPUSCULAR HEMOGLOBIN 30.8 pg (27.0-33.0); MEAN CORPUSCULAR HGB CONC 31.4 g/dl (32.0-36.5); MEAN CORPUSCULAR VOLUME 97.9 fl (80.0-96.0); MONO % 12.3 % (2.0-8.0); NEUTROPHILS # 5.8 10^3/uL (1.5-8.5); NEUTROPHILS % 70.7 % (36.0-66.0); PLATELET COUNT, AUTOMATED 180 10^3/uL (150-450); RED BLOOD COUNT 2.86 10^6/uL (4.00-5.40); WHITE BLOOD COUNT 8.2 10^3/uL (4.0-10.0)
[2022-09-03] MEDS ORDERED: HEPARIN 1,000UNITS/ML 10ML VIAL (FOR RADIOLOGY & DIALYSIS ONLY) XX SCH (06:00)
[2022-09-03] MEDS: HEPARIN SOD (PORCINE) 5000UNITS/ML 1ML VIAL/SYRINGE SC SCH ×3 (06:00→20:49)
[2022-09-03] MEDS ORDERED: HEPARIN 1,000UNITS/ML 10ML VIAL (FOR RADIOLOGY & DIALYSIS ONLY) IV PRN (06:00)
[2022-09-03] MEDS ORDERED: SODIUM CHLORIDE 0.9% 1000ML IV PRN (06:00)
[2022-09-03 06:20] LABS: CALCIUM LEVEL 8.3 MG/DL (8.3-10.6); CREATININE FOR GFR 2.33 MG/DL (0.55-1.30); GLOMERULAR FILTRATION RATE 21.9 (>39); POTASSIUM SERUM 3.7 MMOL/L (3.5-5.1)
[2022-09-03] MEDS: LEVOTHYROXINE 100MCG TABLET (0.1MG) PO SCH (06:25)
[2022-09-03] MEDS: ATORVASTATIN 20 MG TAB PO SCH (07:36)
[2022-09-03] MEDS: CALCITRIOL 0.25 MCG CAP (S0169) PO SCH (07:36)
[2022-09-03] MEDS: AMIODARONE 200 MG TAB (PACERONE) PO SCH (07:36)
[2022-09-03] MEDS: LEVEMIR (INSULIN DETEMIR) 1 UNITS/0.01ML SC SCH ×2 (07:37→21:02)
[2022-09-03] MEDS: DOCUSATE SODIUM 100MG CAPSULE PO SCH ×2 (07:39→20:57)
[2022-09-03 08:00] VITALS: BP 156/69
[2022-09-03] MEDS: methocarbamoL 500 MG TAB PO PRN (11:34)
[2022-09-03 12:00] VITALS: BP 128/58
[2022-09-03 20:00] VITALS: BP 119/60
[2022-09-03] MEDS: methocarbamoL 500 MG TAB PO SCH (20:49)
[2022-09-03] MEDS: ASCORBIC ACID 500 MG TAB PO SCH (20:49)
[2022-09-03] MEDS ORDERED: ALPRAZolam 0.5 MG TAB PO ONE (21:00)
[2022-09-04] MEDS: ACETAMINOPHEN TAB 650MG DOSE (2X325MG) PO PRN ×3 (01:24→13:50)
[2022-09-04 05:34] LABS: BASO % 0.3 % (0.0-1.0); EOS # 0.1 10^3/uL (0.0-0.5); EOS % 1.3 % (0.0-3.0); HEMATOCRIT 28.3 % (36.0-47.0); HEMOGLOBIN 8.8 g/dl (12.0-15.5); LYMPH # 0.9 10^3/uL (1.5-5.0); LYMPH % 11.8 % (24.0-44.0); MEAN CORPUSCULAR HEMOGLOBIN 30.6 pg (27.0-33.0); MEAN CORPUSCULAR HGB CONC 31.1 g/dl (32.0-36.5); MEAN CORPUSCULAR VOLUME 98.3 fl (80.0-96.0); MONO # 0.8 10^3/uL (0.0-0.8); MONO % 10.4 % (2.0-8.0); NEUTROPHILS # 5.9 10^3/uL (1.5-8.5); NEUTROPHILS % 75.8 % (36.0-66.0); PLATELET COUNT, AUTOMATED 157 10^3/uL (150-450); RED BLOOD COUNT 2.88 10^6/uL (4.00-5.40); WHITE BLOOD COUNT 7.7 10^3/uL (4.0-10.0)
[2022-09-04 06:00] LABS: CALCIUM LEVEL 8.4 MG/DL (8.3-10.6); CREATININE FOR GFR 1.83 MG/DL (0.55-1.30); POTASSIUM SERUM 3.9 MMOL/L (3.5-5.1)
[2022-09-04] MEDS: LEVOTHYROXINE 100MCG TABLET (0.1MG) PO SCH (06:24)
[2022-09-04] MEDS: HEPARIN SOD (PORCINE) 5000UNITS/ML 1ML VIAL/SYRINGE SC SCH ×3 (06:24→21:36)
[2022-09-04] MEDS: methocarbamoL 500 MG TAB PO PRN (06:26)
[2022-09-04 07:35] VITALS: BP 148/63
[2022-09-04] MEDS: LEVEMIR (INSULIN DETEMIR) 1 UNITS/0.01ML SC SCH ×2 (08:45→21:35)
[2022-09-04] MEDS: CALCITRIOL 0.25 MCG CAP (S0169) PO SCH (08:45)
[2022-09-04] MEDS: AMIODARONE 200 MG TAB (PACERONE) PO SCH (08:46)
[2022-09-04] MEDS: ATORVASTATIN 20 MG TAB PO SCH (08:46)
[2022-09-04] MEDS: DOCUSATE SODIUM 100MG CAPSULE PO SCH ×2 (08:46→21:00)
[2022-09-04] MEDS: LIDOCAINE 5% (LIDODERM) PATCH TD SCH (08:49)
[2022-09-04 13:01] LABS: PERCENT SATURATION 12.2 % (13.2-45.0)
[2022-09-04 20:00] VITALS: BP 168/54
[2022-09-04 21:30] VITALS: BP 138/50
[2022-09-04] MEDS: ASCORBIC ACID 500 MG TAB PO SCH (21:35)
[2022-09-04] MEDS: methocarbamoL 500 MG TAB PO SCH (21:35)
[2022-09-05] MEDS ORDERED: ALPRAZolam 0.5 MG TAB PO ONE (01:00)
[2022-09-05] MEDS: ACETAMINOPHEN TAB 650MG DOSE (2X325MG) PO PRN ×4 (01:03→22:46)
[2022-09-05] MEDS: LEVOTHYROXINE 100MCG TABLET (0.1MG) PO SCH (06:29)
[2022-09-05] MEDS: HEPARIN SOD (PORCINE) 5000UNITS/ML 1ML VIAL/SYRINGE SC SCH ×3 (06:30→21:27)
[2022-09-05 06:41] LABS: BASO % 0.3 % (0.0-1.0); EOS # 0.2 10^3/uL (0.0-0.5); EOS % 2.4 % (0.0-3.0); HEMATOCRIT 28.9 % (36.0-47.0); HEMOGLOBIN 8.9 g/dl (12.0-15.5); LYMPH # 0.9 10^3/uL (1.5-5.0); LYMPH % 11.7 % (24.0-44.0); MEAN CORPUSCULAR HEMOGLOBIN 30.4 pg (27.0-33.0); MEAN CORPUSCULAR HGB CONC 30.8 g/dl (32.0-36.5); MEAN CORPUSCULAR VOLUME 98.6 fl (80.0-96.0); MONO # 0.8 10^3/uL (0.0-0.8); MONO % 10.4 % (2.0-8.0); NEUTROPHILS % 74.8 % (36.0-66.0); PLATELET COUNT, AUTOMATED 166 10^3/uL (150-450); RED BLOOD COUNT 2.93 10^6/uL (4.00-5.40)
[2022-09-05 07:06] LABS: CALCIUM LEVEL 8.5 MG/DL (8.3-10.6); CREATININE FOR GFR 1.9 MG/DL (0.55-1.30); GLOMERULAR FILTRATION RATE 27.7 (>39); POTASSIUM SERUM 3.8 MMOL/L (3.5-5.1)
[2022-09-05 08:26] VITALS: BP 152/60
[2022-09-05] MEDS: LIDOCAINE 5% (LIDODERM) PATCH TD SCH (09:03)
[2022-09-05] MEDS: LEVEMIR (INSULIN DETEMIR) 1 UNITS/0.01ML SC SCH ×2 (09:03→21:27)
[2022-09-05] MEDS: CALCITRIOL 0.25 MCG CAP (S0169) PO SCH (09:04)
[2022-09-05] MEDS: ATORVASTATIN 20 MG TAB PO SCH (09:04)
[2022-09-05] MEDS: DOCUSATE SODIUM 100MG CAPSULE PO SCH ×2 (09:04→21:00)
[2022-09-05] MEDS: AMIODARONE 200 MG TAB (PACERONE) PO SCH (09:04)
[2022-09-05] MEDS: methocarbamoL 500 MG TAB PO PRN (15:12)
[2022-09-05] MEDS ORDERED: ALPRAZolam 0.5 MG TAB PO PRN (21:05)
[2022-09-05] MEDS: methocarbamoL 500 MG TAB PO SCH (21:26)
[2022-09-05] MEDS: ASCORBIC ACID 500 MG TAB PO SCH (21:27)
[2022-09-06 04:03] VITALS: BP 149/67
[2022-09-06 05:23] LABS: BASO % 0.3 % (0.0-1.0); EOS # 0.1 10^3/uL (0.0-0.5); EOS % 1.4 % (0.0-3.0); HEMOGLOBIN 8.8 g/dl (12.0-15.5); LYMPH # 0.9 10^3/uL (1.5-5.0); LYMPH % 11.8 % (24.0-44.0); MEAN CORPUSCULAR HEMOGLOBIN 30.8 pg (27.0-33.0); MEAN CORPUSCULAR HGB CONC 31.4 g/dl (32.0-36.5); MEAN CORPUSCULAR VOLUME 97.9 fl (80.0-96.0); MONO # 0.8 10^3/uL (0.0-0.8); NEUTROPHILS # 6.1 10^3/uL (1.5-8.5); PLATELET COUNT, AUTOMATED 166 10^3/uL (150-450); RED BLOOD COUNT 2.86 10^6/uL (4.00-5.40)
[2022-09-06] MEDS: LEVOTHYROXINE 100MCG TABLET (0.1MG) PO SCH (05:31)
[2022-09-06] MEDS: methocarbamoL 500 MG TAB PO PRN (05:31)
[2022-09-06] MEDS: HEPARIN SOD (PORCINE) 5000UNITS/ML 1ML VIAL/SYRINGE SC SCH ×2 (05:34→14:13)
[2022-09-06 05:56] LABS: CALCIUM LEVEL 8.5 MG/DL (8.3-10.6); CREATININE FOR GFR 1.97 MG/DL (0.55-1.30); GLOMERULAR FILTRATION RATE 26.6 (>39); POTASSIUM SERUM 4.2 MMOL/L (3.5-5.1)
[2022-09-06] MEDS ORDERED: SODIUM CHLORIDE 0.9% 1000ML IV PRN (06:50)
[2022-09-06] MEDS ORDERED: HEPARIN 1,000UNITS/ML 10ML VIAL (FOR RADIOLOGY & DIALYSIS ONLY) XX SCH (06:50)
[2022-09-06] MEDS ORDERED: HEPARIN 1,000UNITS/ML 10ML VIAL (FOR RADIOLOGY & DIALYSIS ONLY) IV PRN (06:50)
[2022-09-06] MEDS: CALCITRIOL 0.25 MCG CAP (S0169) PO SCH (07:53)
[2022-09-06] MEDS: DOCUSATE SODIUM 100MG CAPSULE PO SCH (07:53)
[2022-09-06] MEDS: ATORVASTATIN 20 MG TAB PO SCH (07:53)
[2022-09-06] MEDS: AMIODARONE 200 MG TAB (PACERONE) PO SCH (07:53)
[2022-09-06] MEDS: LEVEMIR (INSULIN DETEMIR) 1 UNITS/0.01ML SC SCH (07:53)
[2022-09-06] MEDS: LIDOCAINE 5% (LIDODERM) PATCH TD SCH ×2 (07:54→11:38)
[2022-09-06 12:00] VITALS: BP 149/56
[2022-09-06] MEDS: ACETAMINOPHEN TAB 650MG DOSE (2X325MG) PO PRN (14:14)
[2022-09-06] MEDS ORDERED: BISO5TAB14 PO (15:15)
== END 2022-09-06 16:31 | disposition home or self-care (01) | DRG 673 ==
LOC: M ED 09:08 → M ED INP 15:51 → ENRESERV 16:46 → M PCU 18:00
PROVIDERS: ADMIT Internal Medicine; ATTEND Internal Medicine
PROC: 05HN33Z Insertion of Infusion Device into Left Internal Jugular Vein, Percutaneous Approach (ICD-10-PCS; 2022-09-01)
PROC: 0JH60XZ Insertion of Tunneled Vascular Access Device into Chest Subcutaneous Tissue and Fascia, Open Approach (ICD-10-PCS; principal; 2022-09-01 10:00)
DX: I12.0 Hypertensive chronic kidney disease with stage 5 chronic kidney disease or end stage renal disease (principal); N18.6 End stage renal disease; N17.9 Acute kidney failure, unspecified; I48.91 Unspecified atrial fibrillation; K21.9 Gastro-esophageal reflux disease without esophagitis; I25.10 Atherosclerotic heart disease of native coronary artery without angina pectoris; E10.22 Type 1 diabetes mellitus with diabetic chronic kidney disease; G47.33 Obstructive sleep apnea (adult) (pediatric); E78.5 Hyperlipidemia, unspecified; E03.9 Hypothyroidism, unspecified; D63.1 Anemia in chronic kidney disease; Z88.2 Allergy status to sulfonamides; Z79.899 Other long term (current) drug therapy; Z95.2 Presence of prosthetic heart valve

== ENCOUNTER → 2022-09-29 | Outpatient (CLI) | payer MEDICARE, OTHER ==
[~2022-09-29] MED LIST changes: +ACET32TAB PO; +BISO5TAB14 PO; +CVS10CAP7 PO; +DOCU100C16 PO; +HYDR25TA PO; +LEVO100T54 PO; +METH-1164 PO; +ONDA-83 PO; +ONDA40IN IV; +ONDA4TAB6 PO; +OXYC1TAB23 PO; +TORS100T PO; +ULOR80TA PO
== END ==
LOC: M RAD 09:49
PROVIDERS: ATTEND Physician Assistant
DX: Z48.811 Encounter for surgical aftercare following surgery on the nervous system (principal); Z98.890 Other specified postprocedural states

== ENCOUNTER 2022-10-04 18:45 | Observation (INO) | payer MEDICARE, OTHER ==
[~2022-10-04] VITALS: Ht 170.2 cm; Wt 84.4 kg
[~2022-10-04 18:45] MED LIST changes: +FLON1SPR; -FLON1SPR NARES
[2022-10-04] MEDS ORDERED: TORS100T PO (19:03)
[2022-10-04] MEDS ORDERED: ACETAMINOPHEN TAB 650MG DOSE (2X325MG) PO ONE (19:55)
[2022-10-04 20:15] LABS: BASO % 0.3 % (0.0-1.0); EOS # 0.1 10^3/uL (0.0-0.5); EOS % 0.8 % (0.0-3.0); HEMATOCRIT 31.4 % (36.0-47.0); HEMOGLOBIN 9.7 g/dl (12.0-15.5); LYMPH # 0.4 10^3/uL (1.5-5.0); LYMPH % 5.7 % (24.0-44.0); MEAN CORPUSCULAR HEMOGLOBIN 31.5 pg (27.0-33.0); MEAN CORPUSCULAR HGB CONC 30.9 g/dl (32.0-36.5); MEAN CORPUSCULAR VOLUME 101.9 fl (80.0-96.0); MONO # 0.7 10^3/uL (0.0-0.8); MONO % 9.2 % (2.0-8.0); NEUTROPHILS % 83.4 % (36.0-66.0); PLATELET COUNT, AUTOMATED 166 10^3/uL (150-450); RED BLOOD COUNT 3.08 10^6/uL (4.00-5.40); WHITE BLOOD COUNT 7.2 10^3/uL (4.0-10.0)
[2022-10-04 20:29] LABS: INR 1.13; PROTHROMBIN TIME 14.7 SECONDS (12.5-14.5)
[2022-10-04 20:30] LABS: PARTIAL THROMBOPLASTIN TIME 34.8 SECONDS (24.8-34.2)
[2022-10-04 20:45] LABS: CK-MB VALUE MASS < 1.0 NG/ML (<3.6)
[2022-10-04 20:46] LABS: BILIRUBIN,DIRECT 0.3 MG/DL (<0.4)
[2022-10-04 20:47] LABS: ALBUMIN 3.5 G/DL (3.2-5.2); ALKALINE PHOSPHATASE 292 U/L (46-116); ALT/SGPT 39 U/L (7.0-40); AST/SGOT 62 U/L (<34); BILIRUBIN,TOTAL 0.5 MG/DL (0.3-1.2); BLOOD UREA NITROGEN 21 MG/DL (9-23); CALCIUM LEVEL 8.6 MG/DL (8.3-10.6); CARBON DIOXIDE LEVEL 28 MMOL/L (20-31); CHLORIDE LEVEL 95 MMOL/L (98-107); CREATININE FOR GFR 1.72 MG/DL (0.55-1.30); GLOMERULAR FILTRATION RATE 31.1 (>39); GLUCOSE, FASTING 127 MG/DL (74-106); POTASSIUM SERUM 3.9 MMOL/L (3.5-5.1); SODIUM LEVEL 137 MMOL/L (136-145); TOTAL PROTEIN 6.8 G/DL (5.7-8.2)
[2022-10-04 20:54] LABS: CPK CREATINE PHOSPHOKINASE 85 U/L (34-145); MB/CK RELATIVE INDEX 1.17 (< OR =4)
[2022-10-04] MEDS ORDERED: ATORVASTATIN 20 MG TAB PO SCH (21:00)
[2022-10-04] MEDS ORDERED: FERROUS SULFATE 325MG TAB PO SCH (21:00)
[2022-10-04 21:46] LABS: CK-MB VALUE MASS < 1.0 NG/ML (<3.6)
[2022-10-04 21:49] LABS: CPK CREATINE PHOSPHOKINASE 75 U/L (34-145); MB/CK RELATIVE INDEX 1.33 (< OR =4)
[2022-10-04] MEDS ORDERED: OSELTAMIVIR PHOSPHATE 75 MG CAP (TAMIFLU) PO ONE (22:10)
[2022-10-04] MEDS ORDERED: FUROSEMIDE 40MG/4ML VIAL IV ONE (22:10)
[2022-10-04] MEDS ORDERED: DEXTROSE 50% 50ML SYRINGE IV PRN (23:35)
[2022-10-04] MEDS ORDERED: GLUCOSE 4GM CHEW TABLET PO PRN (23:35)
[2022-10-04] MEDS ORDERED: GLUCAGON INJ 1MG VIAL SC PRN (23:35)
[2022-10-04] MEDS ORDERED: ALBUTEROL SULFATE 2.5MG/0.5ML INH NEB SOLN INH PRN (23:35)
[2022-10-04] MEDS ORDERED: ACETAMINOPHEN TAB 650MG DOSE (2X325MG) PO PRN (23:35)
[2022-10-05] MEDS ORDERED: OXYC1TAB23 PO (00:44)
[2022-10-05] MEDS ORDERED: SENN1TAB41 PO (00:44)
[2022-10-05] MEDS ORDERED: HOME MED LIST COMPLETE! XX SCH (00:45)
[2022-10-05] MEDS ORDERED: TORS100T PO (00:54)
[2022-10-05] MEDS ORDERED: OSELTAMIVIR PHOSPHATE 30MG CAPSULE PO ONE (01:00)
[2022-10-05] MEDS ORDERED: NITROGLYCERIN 0.4MG SUBL TABLET SL PRN (01:20)
[2022-10-05] MEDS ORDERED: PERCOCET 5MG/325MG TAB PO PRN (01:20)
[2022-10-05] MEDS ORDERED: FLUTICASONE PROP 0.05% NASAL SPRAY 16 GM (FLONASE) PRN (01:20)
[2022-10-05] MEDS ORDERED: ONDANSETRON 4MG ORAL DISINTEGRATING TAB PO PRN (01:20)
[2022-10-05] MEDS ORDERED: SENOKOT S TAB PO PRN (01:20)
[2022-10-05] MEDS: methocarbamoL 500 MG TAB PO PRN ×2 (01:59→10:54)
[2022-10-05] MEDS ORDERED: HEPARIN SOD (PORCINE) 5000UNITS/ML 1ML VIAL/SYRINGE SC SCH (06:00)
[2022-10-05] MEDS ORDERED: LEVOTHYROXINE 100MCG TABLET (0.1MG) PO SCH (06:00)
[2022-10-05 07:01] LABS: CALCIUM LEVEL 8.3 MG/DL (8.3-10.6); CREATININE FOR GFR 1.99 MG/DL (0.55-1.30); GLOMERULAR FILTRATION RATE 26.3 (>39); POTASSIUM SERUM 3.8 MMOL/L (3.5-5.1)
[2022-10-05] MEDS ORDERED: OSEL30CA PO ×2 (08:04→09:03)
[2022-10-05] MEDS ORDERED: AMLO1TAB24 PO (08:04)
[2022-10-05 08:35] VITALS: BP 148/67
[2022-10-05] MEDS: INSULIN LISPRO (NovoLOG) PER UNIT SC SCH ×2 (08:35→12:00)
[2022-10-05] MEDS ORDERED: DOCUSATE SODIUM 100MG CAPSULE PO SCH (09:00)
[2022-10-05] MEDS ORDERED: METOPROLOL TART 12.5 MG PER 1/2 TAB PO SCH (09:00)
[2022-10-05] MEDS ORDERED: CALCITRIOL 0.25 MCG CAP (S0169) PO SCH (09:00)
[2022-10-05] MEDS ORDERED: ASPIRIN 81MG CHEW TABLET PO SCH (09:00)
[2022-10-05] MEDS ORDERED: FUROSEMIDE 100MG/10ML VIAL IV SCH (09:00)
[2022-10-05] MEDS ORDERED: AMIODARONE 200 MG TAB (PACERONE) PO SCH (09:00)
[2022-10-05 10:48] VITALS: BP 118/57
[2022-10-05] MEDS ORDERED: VITAMIN D 1,000 INTERNATIONAL UNITS TABLET PO SCH (21:00)
[2022-10-05] MEDS ORDERED: INSULIN LISPRO (NovoLOG) PER UNIT SC SCH (21:00)
[2022-10-05] MEDS ORDERED: MAGNESIUM GLUCONATE 500 MG TAB PO SCH (21:00)
[2022-10-06] MEDS ORDERED: amLODIPine 5 MG TAB PO SCH (09:00)
[2022-10-06] MEDS ORDERED: OSELTAMIVIR PHOSPHATE 30MG CAPSULE PO SCH (18:00)
== END 2022-10-05 13:00 | disposition home or self-care (01) ==
LOC: M ED 18:45 → M ED INP 18:46
PROVIDERS: ADMIT Internal Medicine; ATTEND Internal Medicine
DX: A41.3 Sepsis due to Hemophilus influenzae (principal); J09.X2 Influenza due to identified novel influenza A virus with other respiratory manifestations; I24.8 Other forms of acute ischemic heart disease; I16.0 Hypertensive urgency; I12.0 Hypertensive chronic kidney disease with stage 5 chronic kidney disease or end stage renal disease; I35.0 Nonrheumatic aortic (valve) stenosis; I48.20 Chronic atrial fibrillation, unspecified; Z86.73 Personal history of transient ischemic attack (TIA), and cerebral infarction without residual deficits; E78.00 Pure hypercholesterolemia, unspecified; E03.9 Hypothyroidism, unspecified; E11.9 Type 2 diabetes mellitus without complications; N18.6 End stage renal disease; D63.1 Anemia in chronic kidney disease; I50.32 Chronic diastolic (congestive) heart failure; Z79.899 Other long term (current) drug therapy; Z79.4 Long term (current) use of insulin; Z95.1 Presence of aortocoronary bypass graft; Z88.2 Allergy status to sulfonamides
CPT/HCPCS: 36415; 70450; 71046; 80048; 80076; 82550; 82553; 83605; 84484; 85025; 85610; 85730; 87040; 87486; 87581; 87633; 87798; 93005; 93041; 93970; 94760; 96372; 96374; 96376; 97116; 97161; 99285; G0378; J1815; J1940

== ENCOUNTER 2022-10-07 01:38 | Emergency (ER) | payer MEDICARE, OTHER ==
[~2022-10-07] VITALS: Ht 170.2 cm; Wt 81.4 kg
[~2022-10-07 01:38] MED LIST changes: +OSEL30CA PO; +SENN1TAB41 PO
[2022-10-07] MEDS ORDERED: ACETAMINOPHEN TAB 650MG DOSE (2X325MG) PO ONE (02:20)
[2022-10-07 02:45] LABS: BASO % 0.2 % (0.0-1.0); EOS # 0.1 10^3/uL (0.0-0.5); EOS % 0.6 % (0.0-3.0); HEMATOCRIT 32.6 % (36.0-47.0); HEMOGLOBIN 10.2 g/dl (12.0-15.5); LYMPH # 0.6 10^3/uL (1.5-5.0); LYMPH % 5.9 % (24.0-44.0); MEAN CORPUSCULAR HEMOGLOBIN 31.7 pg (27.0-33.0); MEAN CORPUSCULAR HGB CONC 31.3 g/dl (32.0-36.5); MEAN CORPUSCULAR VOLUME 101.2 fl (80.0-96.0); MONO # 0.7 10^3/uL (0.0-0.8); NEUTROPHILS # 8.5 10^3/uL (1.5-8.5); PLATELET COUNT, AUTOMATED 170 10^3/uL (150-450); RED BLOOD COUNT 3.22 10^6/uL (4.00-5.40); WHITE BLOOD COUNT 9.9 10^3/uL (4.0-10.0)
[2022-10-07 03:13] LABS: MAGNESIUM LEVEL 1.8 MG/DL (1.8-2.4)
[2022-10-07] MEDS ORDERED: guaiFENesin ER 600 MG TAB PO ONE (03:20)
[2022-10-07] MEDS ORDERED: IPRATROPIUM 0.5MG/ALBUTEROL 2.5MG INH SOL UD 3ML (DUONEB) NEB ONE (03:20)
[2022-10-07 03:24] LABS: ALBUMIN 3.9 G/DL (3.2-5.2); BILIRUBIN,TOTAL 0.8 MG/DL (0.3-1.2); CALCIUM LEVEL 8.8 MG/DL (8.3-10.6); CREATININE FOR GFR 1.47 MG/DL (0.55-1.30); GLOMERULAR FILTRATION RATE 37.3 (>39); POTASSIUM SERUM 3.3 MMOL/L (3.5-5.1); TOTAL PROTEIN 7.4 G/DL (5.7-8.2)
[2022-10-07] MEDS ORDERED: amLODIPine 5 MG TAB PO ONE (03:30)
[2022-10-07 04:45] VITALS: BP 171/72
[2022-10-07] MEDS ORDERED: GUAI100L6 PO (04:45)
[2022-10-07] MEDS ORDERED: DOXY-443 PO (04:45)
[2022-10-07] MEDS ORDERED: VENTAER INH (04:48)
[2022-10-07] MEDS ORDERED: DOXYCYCLINE HYCLATE 100MG TABLET PO ONE (04:50)
== END 2022-10-07 05:03 | disposition home or self-care (01) ==
LOC: M ED 01:38
DX: J18.9 Pneumonia, unspecified organism (principal); J09.X2 Influenza due to identified novel influenza A virus with other respiratory manifestations; R00.0 Tachycardia, unspecified; I44.0 Atrioventricular block, first degree; I42.2 Other hypertrophic cardiomyopathy; E11.9 Type 2 diabetes mellitus without complications; E78.5 Hyperlipidemia, unspecified; N18.9 Chronic kidney disease, unspecified; I10 Essential (primary) hypertension; Z88.2 Allergy status to sulfonamides; Z79.84 Long term (current) use of oral hypoglycemic drugs; Z86.79 Personal history of other diseases of the circulatory system; Z99.2 Dependence on renal dialysis; Z79.52 Long term (current) use of systemic steroids; Z79.4 Long term (current) use of insulin; Z79.811 Long term (current) use of aromatase inhibitors; Z79.899 Other long term (current) drug therapy

== ENCOUNTER 2022-10-09 00:54 | Inpatient (IN) | payer MEDICARE, OTHER ==
[~2022-10-09] VITALS: Ht 170.2 cm; Wt 81.3 kg
[~2022-10-09 00:54] MED LIST changes: +DOXY-443 PO; +GUAI100L6 PO; +VENTAER INH
[2022-10-09] MEDS ORDERED: ROPI2TAB24 PO (01:17)
[2022-10-09 01:39] LABS: ABG BASE EXCESS 5.2 (-2.0-2.0); ABG PARTIAL PRESSURE CO2 39.7 mmHg (35.0-45.0); ABG PARTIAL PRESSURE O2 146.4 mmHg (75.0-100.0); ABG STANDARD HCO3 29.2 MEQ/L (22.0-26.0); ABG TOTAL CO2 30.3 MEQ/L (23.0-31.0); ABG pH (ARTERIAL) 7.482 UNITS (7.350-7.450)
[2022-10-09] MEDS ORDERED: ACETAMINOPHEN TAB 650MG DOSE (2X325MG) PO ONE (01:50)
[2022-10-09] MEDS: COMBIVENT RESPIMAT 100-20MCG INHALER 4GM INH SCH ×2 (01:54→02:15)
[2022-10-09 02:04] LABS: BASO % 0.1 % (0.0-1.0); HEMOGLOBIN 10.3 g/dl (12.0-15.5); LYMPH # 0.6 10^3/uL (1.5-5.0); LYMPH % 5.7 % (24.0-44.0); MEAN CORPUSCULAR HEMOGLOBIN 31.3 pg (27.0-33.0); MEAN CORPUSCULAR HGB CONC 31.2 g/dl (32.0-36.5); MEAN CORPUSCULAR VOLUME 100.3 fl (80.0-96.0); MONO # 0.7 10^3/uL (0.0-0.8); NEUTROPHILS # 8.8 10^3/uL (1.5-8.5); NEUTROPHILS % 86.8 % (36.0-66.0); PLATELET COUNT, AUTOMATED 193 10^3/uL (150-450); RED BLOOD COUNT 3.29 10^6/uL (4.00-5.40); WHITE BLOOD COUNT 10.2 10^3/uL (4.0-10.0)
[2022-10-09 02:32] LABS: BILIRUBIN,DIRECT 0.5 MG/DL (<0.4)
[2022-10-09 02:34] LABS: ALBUMIN 3.9 G/DL (3.2-5.2); ALKALINE PHOSPHATASE 251 U/L (46-116); ALT/SGPT 22 U/L (7.0-40); AST/SGOT 38 U/L (<34); BILIRUBIN,TOTAL 1.1 MG/DL (0.3-1.2); BLOOD UREA NITROGEN 13 MG/DL (9-23); CALCIUM LEVEL 8.9 MG/DL (8.3-10.6); CARBON DIOXIDE LEVEL 30 MMOL/L (20-31); CHLORIDE LEVEL 91 MMOL/L (98-107); CK-MB VALUE MASS < 1.0 NG/ML (<3.6); CPK CREATINE PHOSPHOKINASE 183 U/L (34-145); CREATININE FOR GFR 1.29 MG/DL (0.55-1.30); GLOMERULAR FILTRATION RATE 43.4 (>39); GLUCOSE, FASTING 349 MG/DL (74-106); MB/CK RELATIVE INDEX 0.54 (< OR =4); POTASSIUM SERUM 3.3 MMOL/L (3.5-5.1); SODIUM LEVEL 134 MMOL/L (136-145); TOTAL PROTEIN 7.8 G/DL (5.7-8.2)
[2022-10-09] MEDS ORDERED: ISOVUE-370 76% 100ML VIAL As Ordered ONE (03:12)
[2022-10-09 03:26] LABS: CK-MB VALUE MASS < 1.0 NG/ML (<3.6)
[2022-10-09 03:27] LABS: CPK CREATINE PHOSPHOKINASE 172 U/L (34-145); MB/CK RELATIVE INDEX 0.58 (< OR =4)
[2022-10-09] MEDS ORDERED: PIPERACILLIN/TAZOBACTAM SOD 4.5 GM in D5W MINI-BAG PLUS 50 ML IV ONE (04:00)
[2022-10-09] MEDS ORDERED: HOME MED LIST COMPLETE! XX SCH (04:55)
[2022-10-09] MEDS ORDERED: NITROGLYCERIN 2% OINT 1 GM *U/D* PKT TOP ONE (05:05)
[2022-10-09] MEDS ORDERED: hydrALAZINE 20MG/ML 1ML VIAL IV PRN (05:35)
[2022-10-09] MEDS ORDERED: NITROGLYCERIN 0.4MG SUBL TABLET SL PRN (05:40)
[2022-10-09] MEDS ORDERED: DEXTROSE 50% 50ML SYRINGE IV PRN (05:40)
[2022-10-09] MEDS ORDERED: GLUCOSE 4GM CHEW TABLET PO PRN (05:40)
[2022-10-09] MEDS ORDERED: GLUCAGON INJ 1MG VIAL SC PRN (05:40)
[2022-10-09] MEDS ORDERED: FUROSEMIDE 40MG/4ML VIAL IV ONE (05:50)
[2022-10-09] MEDS ORDERED: VANCOMYCIN HCL 750 MG, VIAL MATE ADAPTER 1 EACH in D5W 250 ML IV ONE ×2 (06:00→07:00)
[2022-10-09] MEDS: LEVOTHYROXINE 100MCG TABLET (0.1MG) PO SCH (06:11)
[2022-10-09 06:32] LABS: BASO % 0.1 % (0.0-1.0); HEMOGLOBIN 9.1 g/dl (12.0-15.5); LYMPH # 0.6 10^3/uL (1.5-5.0); LYMPH % 5.5 % (24.0-44.0); MEAN CORPUSCULAR HEMOGLOBIN 30.5 pg (27.0-33.0); MEAN CORPUSCULAR HGB CONC 30.3 g/dl (32.0-36.5); MEAN CORPUSCULAR VOLUME 100.7 fl (80.0-96.0); MONO # 0.8 10^3/uL (0.0-0.8); MONO % 7.9 % (2.0-8.0); NEUTROPHILS % 86.2 % (36.0-66.0); PLATELET COUNT, AUTOMATED 173 10^3/uL (150-450); RED BLOOD COUNT 2.98 10^6/uL (4.00-5.40); WHITE BLOOD COUNT 10.4 10^3/uL (4.0-10.0)
[2022-10-09 06:57] LABS: MAGNESIUM LEVEL 1.6 MG/DL (1.8-2.4)
[2022-10-09 07:00] LABS: ALBUMIN 3.3 G/DL (3.2-5.2); BILIRUBIN,TOTAL 1.1 MG/DL (0.3-1.2); CALCIUM LEVEL 8.2 MG/DL (8.3-10.6); CREATININE FOR GFR 1.4 MG/DL (0.55-1.30); GLOMERULAR FILTRATION RATE 39.5 (>39); PHOSPHORUS LEVEL 2.3 MG/DL (2.4-5.1); TOTAL PROTEIN 6.4 G/DL (5.7-8.2)
[2022-10-09] MEDS: ACETAMINOPHEN TAB 650MG DOSE (2X325MG) PO PRN ×2 (07:29→15:00)
[2022-10-09 08:30] VITALS: BP 163/74
[2022-10-09] MEDS ORDERED: CALCITRIOL 0.25 MCG CAP (S0169) PO SCH (09:00)
[2022-10-09] MEDS ORDERED: ONDANSETRON 4MG 2ML VIAL IV PRN (09:45)
[2022-10-09] MEDS ORDERED: ONDANSETRON 4MG 2ML VIAL IV ONE (09:50)
[2022-10-09] MEDS ORDERED: PIPERACILLIN/TAZOBACTAM SOD 4.5 GM in D5W MINI-BAG PLUS 50 ML IV SCH (10:00)
[2022-10-09] MEDS ORDERED: POTASSIUM CHLORIDE 10MEQ SR TABLET PO ONE (10:00)
[2022-10-09] MEDS ORDERED: SODIUM CHLORIDE 0.9% 1000ML IV PRN (10:05)
[2022-10-09] MEDS ORDERED: HEPARIN 1,000UNITS/ML 10ML VIAL (FOR RADIOLOGY & DIALYSIS ONLY) XX SCH (10:05)
[2022-10-09] MEDS ORDERED: HEPARIN 1,000UNITS/ML 10ML VIAL (FOR RADIOLOGY & DIALYSIS ONLY) IV PRN (10:05)
[2022-10-09] MEDS: INSULIN LISPRO (NovoLOG) PER UNIT SC SCH ×4 (10:09→21:00)
[2022-10-09] MEDS: LEVEMIR (INSULIN DETEMIR) 1 UNITS/0.01ML SC SCH (10:09)
[2022-10-09] MEDS: AMIODARONE 200 MG TAB (PACERONE) PO SCH (10:18)
[2022-10-09] MEDS ORDERED: IPRATROPIUM 0.5MG/ALBUTEROL 2.5MG INH SOL UD 3ML (DUONEB) NEB PRN (10:45)
[2022-10-09 12:00] VITALS: BP 159/71
[2022-10-09] MEDS ORDERED: VANCOMYCIN HCL 1,000 MG, VIAL MATE ADAPTER 1 EACH in NS 250 ML IV SCH (12:00)
[2022-10-09] MEDS: IPRATROPIUM 0.5MG/ALBUTEROL 2.5MG INH SOL UD 3ML (DUONEB) NEB SCH ×2 (14:00→19:32)
[2022-10-09] MEDS: guaiFENesin 200 MG TAB PO SCH ×3 (15:00→23:44)
[2022-10-09] MEDS ORDERED: SENOKOT S TAB PO PRN (15:30)
[2022-10-09] MEDS: HEPARIN SOD (PORCINE) 5000UNITS/ML 1ML VIAL/SYRINGE SC SCH ×2 (16:45→21:08)
[2022-10-09] MEDS: methocarbamoL 500 MG TAB PO PRN (16:46)
[2022-10-09] MEDS: TORSEMIDE 100 MG TAB PO SCH (16:46)
[2022-10-09] MEDS: amLODIPine 5 MG TAB PO SCH (16:53)
[2022-10-09] MEDS: CEPACOL LOZENGE PO PRN ×2 (17:40→21:46)
[2022-10-09] MEDS ORDERED: FERROUS SULFATE 325MG TAB PO SCH (21:00)
[2022-10-09] MEDS ORDERED: VITAMIN D 1,000 INTERNATIONAL UNITS TABLET PO SCH (21:00)
[2022-10-09 21:03] VITALS: BP 123/58
[2022-10-09] MEDS: ATORVASTATIN 20 MG TAB PO SCH (21:05)
[2022-10-09] MEDS: rOPINIRole 2MG TAB PO SCH (21:05)
[2022-10-09] MEDS: ASCORBIC ACID 500 MG TAB PO SCH (21:05)
[2022-10-10] MEDS: IPRATROPIUM 0.5MG/ALBUTEROL 2.5MG INH SOL UD 3ML (DUONEB) NEB SCH ×4 (01:09→20:48)
[2022-10-10] MEDS: ACETAMINOPHEN TAB 650MG DOSE (2X325MG) PO PRN ×3 (02:00→20:32)
[2022-10-10] MEDS: methocarbamoL 500 MG TAB PO PRN ×3 (02:00→20:33)
[2022-10-10 04:19] VITALS: BP 113/54
[2022-10-10 04:38] LABS: BASO % 0.1 % (0.0-1.0); EOS # 0.1 10^3/uL (0.0-0.5); EOS % 1.2 % (0.0-3.0); LYMPH # 1.2 10^3/uL (1.5-5.0); LYMPH % 14.2 % (24.0-44.0); MEAN CORPUSCULAR HEMOGLOBIN 30.6 pg (27.0-33.0); MEAN CORPUSCULAR VOLUME 98.6 fl (80.0-96.0); MONO # 0.6 10^3/uL (0.0-0.8); MONO % 6.6 % (2.0-8.0); NEUTROPHILS # 6.6 10^3/uL (1.5-8.5); NEUTROPHILS % 77.5 % (36.0-66.0); PLATELET COUNT, AUTOMATED 189 10^3/uL (150-450); RED BLOOD COUNT 2.94 10^6/uL (4.00-5.40); WHITE BLOOD COUNT 8.5 10^3/uL (4.0-10.0)
[2022-10-10 05:10] LABS: ALBUMIN 3.2 G/DL (3.2-5.2); BILIRUBIN,TOTAL 0.8 MG/DL (0.3-1.2); CALCIUM LEVEL 8.6 MG/DL (8.3-10.6); CREATININE FOR GFR 2.46 MG/DL (0.55-1.30); GLOMERULAR FILTRATION RATE 20.6 (>39); POTASSIUM SERUM 3.3 MMOL/L (3.5-5.1); TOTAL PROTEIN 6.6 G/DL (5.7-8.2)
[2022-10-10] MEDS: LEVOTHYROXINE 100MCG TABLET (0.1MG) PO SCH (05:32)
[2022-10-10] MEDS: guaiFENesin 200 MG TAB PO SCH ×4 (05:32→23:17)
[2022-10-10] MEDS: HEPARIN SOD (PORCINE) 5000UNITS/ML 1ML VIAL/SYRINGE SC SCH ×3 (05:32→21:13)
[2022-10-10] MEDS: INSULIN LISPRO (NovoLOG) PER UNIT SC SCH ×4 (07:30→20:33)
[2022-10-10] MEDS ORDERED: POTASSIUM CHLORIDE 10MEQ SR TABLET PO ONE (07:40)
[2022-10-10 08:00] VITALS: BP 144/66
[2022-10-10] MEDS: TORSEMIDE 100 MG TAB PO SCH ×2 (09:14→17:22)
[2022-10-10] MEDS: AMIODARONE 200 MG TAB (PACERONE) PO SCH (09:14)
[2022-10-10] MEDS: LEVEMIR (INSULIN DETEMIR) 1 UNITS/0.01ML SC SCH (09:15)
[2022-10-10] MEDS: amLODIPine 5 MG TAB PO SCH (09:17)
[2022-10-10 11:15] LABS: HEPATITIS B SURFACE ANTIBODY NEGATIVE (POSITIVE)
[2022-10-10 11:26] LABS: HEPATITIS B SURFACE ANTIGEN NEGATIVE (NEGATIVE)
[2022-10-10 11:47] LABS: HEPATITIS B CORE ANTIBODY IGM NEGATIVE (NEGATIVE); HEPATITIS C VIRUS ABY INDEX 0.1 INDEX (<0.8)
[2022-10-10 12:00] VITALS: BP 145/68
[2022-10-10 20:30] VITALS: BP 136/66
[2022-10-10] MEDS: ATORVASTATIN 20 MG TAB PO SCH (20:32)
[2022-10-10] MEDS: rOPINIRole 2MG TAB PO SCH (20:32)
[2022-10-10] MEDS: ASCORBIC ACID 500 MG TAB PO SCH (20:32)
[2022-10-10] MEDS ORDERED: RAMELTEON 8 MG TAB (ROZEREM) PO PRN (21:20)
[2022-10-11] MEDS: methocarbamoL 500 MG TAB PO PRN ×2 (02:23→12:56)
[2022-10-11] MEDS: ACETAMINOPHEN TAB 650MG DOSE (2X325MG) PO PRN ×2 (02:33→12:56)
[2022-10-11 04:18] VITALS: BP 147/67
[2022-10-11 04:32] LABS: BASO % 0.1 % (0.0-1.0); EOS # 0.1 10^3/uL (0.0-0.5); EOS % 1.7 % (0.0-3.0); HEMATOCRIT 27.6 % (36.0-47.0); HEMOGLOBIN 8.6 g/dl (12.0-15.5); LYMPH # 1.2 10^3/uL (1.5-5.0); LYMPH % 16.5 % (24.0-44.0); MEAN CORPUSCULAR HGB CONC 31.2 g/dl (32.0-36.5); MEAN CORPUSCULAR VOLUME 99.6 fl (80.0-96.0); MONO # 0.7 10^3/uL (0.0-0.8); MONO % 9.7 % (2.0-8.0); NEUTROPHILS # 5.2 10^3/uL (1.5-8.5); NEUTROPHILS % 71.4 % (36.0-66.0); PLATELET COUNT, AUTOMATED 201 10^3/uL (150-450); RED BLOOD COUNT 2.77 10^6/uL (4.00-5.40); WHITE BLOOD COUNT 7.2 10^3/uL (4.0-10.0)
[2022-10-11 05:10] LABS: BILIRUBIN,TOTAL 0.6 MG/DL (0.3-1.2); CALCIUM LEVEL 8.4 MG/DL (8.3-10.6); CREATININE FOR GFR 3.19 MG/DL (0.55-1.30); GLOMERULAR FILTRATION RATE 15.3 (>39); PHOSPHORUS LEVEL 3.2 MG/DL (2.4-5.1); POTASSIUM SERUM 3.8 MMOL/L (3.5-5.1); TOTAL PROTEIN 6.3 G/DL (5.7-8.2)
[2022-10-11] MEDS: HEPARIN SOD (PORCINE) 5000UNITS/ML 1ML VIAL/SYRINGE SC SCH ×2 (05:36→15:44)
[2022-10-11] MEDS: guaiFENesin 200 MG TAB PO SCH (05:36)
[2022-10-11] MEDS: AMIODARONE 200 MG TAB (PACERONE) PO SCH (05:37)
[2022-10-11] MEDS: TORSEMIDE 100 MG TAB PO SCH (05:37)
[2022-10-11 05:38] VITALS: BP 145/66
[2022-10-11] MEDS: LEVOTHYROXINE 100MCG TABLET (0.1MG) PO SCH (05:38)
[2022-10-11] MEDS: amLODIPine 5 MG TAB PO SCH (05:38)
[2022-10-11] MEDS ORDERED: SODIUM CHLORIDE 0.9% 1000ML IV PRN (06:00)
[2022-10-11] MEDS ORDERED: HEPARIN 1,000UNITS/ML 10ML VIAL (FOR RADIOLOGY & DIALYSIS ONLY) IV PRN (06:00)
[2022-10-11] MEDS ORDERED: HEPARIN 1,000UNITS/ML 10ML VIAL (FOR RADIOLOGY & DIALYSIS ONLY) XX SCH (06:00)
[2022-10-11] MEDS: INSULIN LISPRO (NovoLOG) PER UNIT SC SCH ×2 (06:54→12:00)
[2022-10-11] MEDS: IPRATROPIUM 0.5MG/ALBUTEROL 2.5MG INH SOL UD 3ML (DUONEB) NEB SCH ×2 (07:38→14:33)
[2022-10-11 08:00] VITALS: BP 141/66
[2022-10-11] MEDS: LEVEMIR (INSULIN DETEMIR) 1 UNITS/0.01ML SC SCH (08:14)
[2022-10-11] MEDS: CEPACOL LOZENGE PO PRN (12:56)
[2022-10-11] MEDS ORDERED: AZIT-12 PO (16:03)
[2022-10-11] MEDS ORDERED: GUAI200T6 PO (16:03)
[2022-10-11] MEDS ORDERED: AZITHROMYCIN 250MG TABLET PO SCH (17:00)
[2022-10-11] MEDS ORDERED: guaiFENesin ER 600 MG TAB PO SCH (21:00)
== END 2022-10-11 16:50 | disposition home or self-care (01) | DRG 189 ==
LOC: M ED 00:54 → M ED INP 05:26 → ENRESERV 06:29 → M ICU 08:18
PROVIDERS: ADMIT Internal Medicine; ATTEND Family Medicine
DX: J96.01 Acute respiratory failure with hypoxia (principal); N18.6 End stage renal disease; I50.33 Acute on chronic diastolic (congestive) heart failure; J81.1 Chronic pulmonary edema; E87.1 Hypo-osmolality and hyponatremia; I16.1 Hypertensive emergency; I13.2 Hypertensive heart and chronic kidney disease with heart failure and with stage 5 chronic kidney disease, or end stage renal disease; K21.9 Gastro-esophageal reflux disease without esophagitis; J10.1 Influenza due to other identified influenza virus with other respiratory manifestations; I25.10 Atherosclerotic heart disease of native coronary artery without angina pectoris; I27.20 Pulmonary hypertension, unspecified; I48.91 Unspecified atrial fibrillation; E03.9 Hypothyroidism, unspecified; G47.33 Obstructive sleep apnea (adult) (pediatric); G25.81 Restless legs syndrome; Z88.2 Allergy status to sulfonamides; Z79.899 Other long term (current) drug therapy; Z86.73 Personal history of transient ischemic attack (TIA), and cerebral infarction without residual deficits; D63.1 Anemia in chronic kidney disease; E78.5 Hyperlipidemia, unspecified; Z95.1 Presence of aortocoronary bypass graft; Z91.119 Patient's noncompliance with dietary regimen due to unspecified reason; E11.9 Type 2 diabetes mellitus without complications; Z79.4 Long term (current) use of insulin; E87.6 Hypokalemia; Z99.2 Dependence on renal dialysis

== ENCOUNTER → 2022-10-18 | Outpatient (CLI) | payer MEDICARE, OTHER ==
[~2022-10-18] MED LIST changes: +AZIT-12 PO; +GUAI200T6 PO; +ROPI2TAB24 PO
== END ==
LOC: M RAD 14:05
PROVIDERS: ATTEND Surgery Vascular Surgery
DX: N18.6 End stage renal disease (principal)

== ENCOUNTER → 2022-10-22 | Outpatient (REF) | payer MEDICARE, OTHER ==
[2022-10-22 14:18] LABS: APPEARANCE, URINE MANUAL CLOUDY (CLEAR); BILIRUBIN, URINE MANUAL NEGATIVE (NEGATIVE); BLOOD URINE MANUAL POSITIVE (NEGATIVE); COLOR, URINE MANUAL YELLOW (YELLOW); GLUCOSE, URINE (UA) MANUAL NEGATIVE (NEGATIVE); KETONE, URINE MANUAL NEGATIVE (NEGATIVE); LEUKOCYTE ESTERASE, URINE MAN POSITIVE (NEGATIVE); NITRITE, URINE MANUAL POSITIVE (NEGATIVE); PROTEIN, URINE MANUAL 1+ mg/dL (NEGATIVE); UROBILINOGEN, URINE MANUAL NORMAL (NORMAL)
[2022-10-22 14:34] LABS: BACTERIA, URINE LARGE AMOUNT; HYALINE CAST, URINE NONE SEEN /lpf (0-1); RBC, URINE NONE SEEN /hpf (0-3); SQUAMOUS EPITHELIAL CELL URINE NONE SEEN /hpf (SMALL AMT); WBC, URINE TNTC /hpf (0-3)
== END ==
LOC: M SFHCPLAZ 12:59
PROVIDERS: ATTEND Physician Assistant Medical
DX: R30.0 Dysuria (principal)

== ENCOUNTER → 2022-11-08 | Outpatient (CLI) | payer MEDICARE, OTHER ==
[~2022-11-08] MED LIST changes: +LEVO125T4 PO
== END ==
LOC: M WHC 11:48
PROVIDERS: ATTEND Internal Medicine Hematology
DX: Z12.31 Encounter for screening mammogram for malignant neoplasm of breast (principal)

== ENCOUNTER → 2022-11-08 | Outpatient (CLI) | payer MEDICARE, OTHER ==
[~2022-11-08] MED LIST changes: -LEVO125T4 PO
== END ==
LOC: M LABSMTC 10:18
PROVIDERS: ATTEND Nurse Practitioner Family
DX: Z01.812 Encounter for preprocedural laboratory examination (principal); Z11.52 Encounter for screening for COVID-19

== ENCOUNTER 2022-11-11 06:19 | Day surgery (SDC) | payer MEDICARE, OTHER ==
[~2022-11-11] VITALS: Ht 170.2 cm; Wt 73.0 kg
[~2022-11-11 06:19] MED LIST changes: +CYCLOPENTOLATE 1% OPHTH SOLN 2ML BTL OS SCH; +FLURBIPROFEN 0.03% OPHTH SOLN 2.5 ML OS SCH; +PHENYLEPHRINE 10% OPHTH SOL 5ML OS ONE; +PHENYLEPHRINE 2.5% OPHTH SOL 2ML OS SCH; +TETRACAINE 0.5% OPHTH SOLN 4ML OS SCH
[2022-11-11] MEDS ORDERED: INSULIN LISPRO (NovoLOG) PER UNIT SC PRN (06:35)
[2022-11-11] MEDS ORDERED: LIDOCAINE 1% SDV 5ML VIAL As Ordered ONE (06:41)
[2022-11-11] MEDS ORDERED: MAXITROL OPHTH SUSP 5ML As Ordered ONE (06:42)
[2022-11-11] MEDS ORDERED: LR 1,000 ML IV SCH (07:00)
[2022-11-11] MEDS ORDERED: MIDAZOLAM INJ 2MG/2ML VIAL As Ordered ONE (09:01)
[2022-11-11 09:35] VITALS: BP 119/58
== END 2022-11-11 10:10 | disposition home or self-care (01) ==
LOC: M SDC 06:19
PROVIDERS: ATTEND Ophthalmology
DX: H25.12 Age-related nuclear cataract, left eye (principal); I25.2 Old myocardial infarction; I25.10 Atherosclerotic heart disease of native coronary artery without angina pectoris; I12.9 Hypertensive chronic kidney disease with stage 1 through stage 4 chronic kidney disease, or unspecified chronic kidney disease; E11.9 Type 2 diabetes mellitus without complications; N18.30 Chronic kidney disease, stage 3 unspecified; Z98.61 Coronary angioplasty status; E03.9 Hypothyroidism, unspecified; K21.9 Gastro-esophageal reflux disease without esophagitis; Z79.899 Other long term (current) drug therapy; Z79.51 Long term (current) use of inhaled steroids; G47.33 Obstructive sleep apnea (adult) (pediatric); Z91.040 Latex allergy status; Z88.2 Allergy status to sulfonamides
CPT/HCPCS: 36415; 66984; 84132; J2250; V2632

== ENCOUNTER → 2022-11-22 | Outpatient (CLI) | payer MEDICARE, OTHER ==
[~2022-11-22] MED LIST changes: -CYCLOPENTOLATE 1% OPHTH SOLN 2ML BTL OS SCH; -FLURBIPROFEN 0.03% OPHTH SOLN 2.5 ML OS SCH; -PHENYLEPHRINE 10% OPHTH SOL 5ML OS ONE; -PHENYLEPHRINE 2.5% OPHTH SOL 2ML OS SCH; -TETRACAINE 0.5% OPHTH SOLN 4ML OS SCH
[2022-11-22 14:03] LABS: APPEARANCE, URINE TURBID (CLEAR); BACTERIA, URINE AUTO 3+ (NEGATIVE); BILIRUBIN, URINE AUTO NEGATIVE (NEGATIVE); BLOOD, URINE BLOOD NEGATIVE (NEGATIVE); COLOR, URINE AMBER (YELLOW); GLUCOSE, URINE (UA) AUTO NEGATIVE (NEGATIVE); KETONE, URINE AUTO NEGATIVE (NEGATIVE); LEUKOCYTE ESTERASE, URINE AUTO 3+ (NEGATIVE); NITRITE, URINE AUTO NEGATIVE (NEGATIVE); PROTEIN, URINE AUTO 2+ mg/dL (NEGATIVE); RBC, URINE AUTO 11 /HPF (0-3); SPECIFIC GRAVITY URINE AUTO 1.017 (1.002-1.035); SQUAMOUS EPITHELIAL CELL UR AU 2 /HPF (0-6); UROBILINOGEN, URINE AUTO 0.2 mg/dL (0.0-2.0); WBC, URINE AUTO TNTC /HPF (0-3)
== END ==
LOC: M PLALAB 10:01
PROVIDERS: ATTEND Internal Medicine Hematology
DX: N18.6 End stage renal disease (principal)

== ENCOUNTER → 2022-12-06 | Outpatient (CLI) | payer MEDICARE, OTHER | LOC: M LABSMTC 07:58 | PROVIDERS: ATTEND Anesthesiology | DX: Z01.812 Encounter for preprocedural laboratory examination (principal); I12.9 Hypertensive chronic kidney disease with stage 1 through stage 4 chronic kidney disease, or unspecified chronic kidney disease; N18.9 Chronic kidney disease, unspecified; Z20.822 Contact with and (suspected) exposure to COVID-19; Z79.899 Other long term (current) drug therapy ==

== ENCOUNTER → 2022-12-06 | Outpatient (CLI) | payer MEDICARE, OTHER ==
[2022-12-06 11:02] LABS: ALBUMIN 3.5 G/DL (3.2-5.2); ALKALINE PHOSPHATASE 168 U/L (46-116); ALT/SGPT 23 U/L (7.0-40); AST/SGOT 23 U/L (<34); BILIRUBIN,TOTAL 0.4 MG/DL (0.3-1.2); BLOOD UREA NITROGEN 42 MG/DL (9-23); C REACTIVE PROTEIN QUANTITATIV < 0.40 MG/DL (<1.0); CALCIUM LEVEL 9.3 MG/DL (8.3-10.6); CARBON DIOXIDE LEVEL 30 MMOL/L (20-31); CHLORIDE LEVEL 99 MMOL/L (98-107); CHOLESTEROL LEVEL 106 MG/DL (<200); CHOLESTEROL RISK RATIO 3.01 (<5); CREATININE FOR GFR 2.43 MG/DL (0.55-1.30); GLOMERULAR FILTRATION RATE 20.9 (>39); GLUCOSE, FASTING 147 MG/DL (74-106); HDL CHOLESTEROL 35.2 MG/DL (>40); LDL CHOLESTEROL 50.4 MG/DL (<100); NON-HDL-C 71 MG/DL; POTASSIUM SERUM 3.9 MMOL/L (3.5-5.1); SODIUM LEVEL 137 MMOL/L (136-145); THYROID STIMULATING HORMONE 7.357 uIU/ML (0.55-4.78); TOTAL PROTEIN 6.7 G/DL (5.7-8.2); TRIGLYCERIDES LEVEL 102 MG/DL (<150)
[2022-12-06 11:03] LABS: FREE T4 1.08 NG/DL (0.89-1.76)
[2022-12-06 11:04] LABS: TOTAL 25(OH) VITAMIN D 56.2 NG/ML (20.0-100.0); VITAMIN B12 LEVEL 223 PG/ML (211-911)
[2022-12-06 11:07] LABS: HEMATOCRIT 35.7 % (36.0-47.0); HEMOGLOBIN 11.1 g/dl (12.0-15.5); MEAN CORPUSCULAR HEMOGLOBIN 32.5 pg (27.0-33.0); MEAN CORPUSCULAR HGB CONC 31.1 g/dl (32.0-36.5); MEAN CORPUSCULAR VOLUME 104.4 fl (80.0-96.0); PLATELET COUNT, AUTOMATED 256 10^3/uL (150-450); RED BLOOD COUNT 3.42 10^6/uL (4.00-5.40); WHITE BLOOD COUNT 8.8 10^3/uL (4.0-10.0)
[2022-12-06 11:31] LABS: CREATININE, URINE 95.9 MG/DL; MAU/CREAT RATIO 71.9 MCG/MG (0.0-30.0)
== END ==
LOC: M PLALAB 07:56
PROVIDERS: ATTEND Internal Medicine Hematology
DX: I12.9 Hypertensive chronic kidney disease with stage 1 through stage 4 chronic kidney disease, or unspecified chronic kidney disease (principal); N18.9 Chronic kidney disease, unspecified

== ENCOUNTER 2022-12-09 06:04 | Day surgery (SDC) | payer MEDICARE, OTHER ==
[~2022-12-09] VITALS: Ht 170.2 cm; Wt 75.9 kg
[~2022-12-09 06:04] MED LIST changes: +CYCLOPENTOLATE 1% OPHTH SOLN 2ML BTL OD SCH; +FLURBIPROFEN 0.03% OPHTH SOLN 2.5 ML OD SCH; +PHENYLEPHRINE 10% OPHTH SOL 5ML OD ONE; +PHENYLEPHRINE 2.5% OPHTH SOL 2ML OD SCH; +TETRACAINE 0.5% OPHTH SOLN 4ML OD SCH
[2022-12-09] MEDS ORDERED: LIDOCAINE 1% SDV 5ML VIAL As Ordered ONE (06:35)
[2022-12-09] MEDS ORDERED: MAXITROL OPHTH SUSP 5ML As Ordered ONE (06:36)
[2022-12-09] MEDS ORDERED: LR 1,000 ML IV SCH (07:00)
[2022-12-09] MEDS ORDERED: MIDAZOLAM INJ 2MG/2ML VIAL As Ordered ONE (07:52)
[2022-12-09] MEDS ORDERED: fentaNYL 100 MCG/2 ML INJECTION As Ordered ONE (07:52)
[2022-12-09 08:07] VITALS: BP 160/68
== END 2022-12-09 08:29 | disposition home or self-care (01) ==
LOC: M SDC 06:04
PROVIDERS: ATTEND Ophthalmology
DX: H25.11 Age-related nuclear cataract, right eye (principal); I10 Essential (primary) hypertension; E78.5 Hyperlipidemia, unspecified; E03.9 Hypothyroidism, unspecified; I25.10 Atherosclerotic heart disease of native coronary artery without angina pectoris; I25.2 Old myocardial infarction; K21.9 Gastro-esophageal reflux disease without esophagitis; Z79.899 Other long term (current) drug therapy; Z88.2 Allergy status to sulfonamides; Z91.040 Latex allergy status; Z98.61 Coronary angioplasty status
CPT/HCPCS: 36415; 66984; 84132; J2250; J3010; V2632

== ENCOUNTER → 2023-01-10 | Outpatient (REF) | payer MEDICARE, OTHER ==
[~2023-01-10] MED LIST changes: -CYCLOPENTOLATE 1% OPHTH SOLN 2ML BTL OD SCH; -FLURBIPROFEN 0.03% OPHTH SOLN 2.5 ML OD SCH; +LEVO125T4 PO; -PHENYLEPHRINE 10% OPHTH SOL 5ML OD ONE; -PHENYLEPHRINE 2.5% OPHTH SOL 2ML OD SCH; -TETRACAINE 0.5% OPHTH SOLN 4ML OD SCH
== END ==
LOC: M PLALAB 11:23
PROVIDERS: ATTEND Nurse Practitioner Family
DX: R39.15 Urgency of urination (principal)

== ENCOUNTER 2023-01-11 11:22 | Day surgery (SDC) | payer MEDICARE, OTHER ==
[~2023-01-11] VITALS: Ht 170.2 cm; Wt 76.7 kg
[2023-01-11] MEDS ORDERED: D5W/0.2% SODIUM CHLORIDE 1,000 ML IV SCH (11:55)
[2023-01-11 12:01] LABS: HEMATOCRIT 39.7 % (36.0-47.0); HEMOGLOBIN 12.6 g/dl (12.0-15.5); MEAN CORPUSCULAR HEMOGLOBIN 32.8 pg (27.0-33.0); MEAN CORPUSCULAR HGB CONC 31.7 g/dl (32.0-36.5); MEAN CORPUSCULAR VOLUME 103.4 fl (80.0-96.0); PLATELET COUNT, AUTOMATED 219 10^3/uL (150-450); RED BLOOD COUNT 3.84 10^6/uL (4.00-5.40); WHITE BLOOD COUNT 6.3 10^3/uL (4.0-10.0)
[2023-01-11 12:15] LABS: INR 0.95; PARTIAL THROMBOPLASTIN TIME 22.8 SECONDS (24.8-34.2); PROTHROMBIN TIME 12.9 SECONDS (12.5-14.5)
[2023-01-11] MEDS ORDERED: ceFAZolin SOD 2 GM in IV 1 EA IV ONE (12:20)
[2023-01-11 12:22] LABS: CALCIUM LEVEL 9.6 MG/DL (8.3-10.6); CREATININE FOR GFR 2.45 MG/DL (0.55-1.30); GLOMERULAR FILTRATION RATE 20.7 (>39); POTASSIUM SERUM 3.9 MMOL/L (3.5-5.1)
[2023-01-11] MEDS ORDERED: PAPAVERINE HCL 60MG 2ML VIAL (30MG/ML) As Ordered ONE (12:50)
[2023-01-11] MEDS ORDERED: BUPIVACAINE/EPIN 0.5% 30ML VIAL As Ordered ONE ×2 (12:50→15:41)
[2023-01-11] MEDS ORDERED: LIDOCAINE 1% SDV 30ML VIAL As Ordered ONE (12:50)
[2023-01-11] MEDS ORDERED: HEPARIN SOD (PORCINE) 5000UNITS/ML 1ML VIAL/SYRINGE As Ordered ONE (12:50)
[2023-01-11] MEDS ORDERED: fentaNYL 250 MCG/5 ML INJECTION As Ordered ONE (12:53)
[2023-01-11] MEDS ORDERED: MIDAZOLAM INJ 2MG/2ML VIAL As Ordered ONE (12:53)
[2023-01-11] MEDS ORDERED: LIDOCAINE 2% 100MG/5ML SDV (FOR ANES.) As Ordered ONE (12:53)
[2023-01-11] MEDS ORDERED: propofoL 200 MG/20 ML VIAL As Ordered ONE (12:53)
[2023-01-11] MEDS ORDERED: ONDANSETRON 4MG 2ML VIAL As Ordered ONE (12:53)
[2023-01-11] MEDS ORDERED: ACETAMINOPHEN 1000MG 100ML IV BAG As Ordered ONE (17:03)
[2023-01-11 17:45] VITALS: BP 154/73
== END 2023-01-11 17:53 | disposition home or self-care (01) ==
LOC: M SDC 11:22
PROVIDERS: ATTEND Surgery Vascular Surgery
DX: N18.6 End stage renal disease (principal); I12.0 Hypertensive chronic kidney disease with stage 5 chronic kidney disease or end stage renal disease; E11.9 Type 2 diabetes mellitus without complications; K21.9 Gastro-esophageal reflux disease without esophagitis; I25.2 Old myocardial infarction; I48.91 Unspecified atrial fibrillation; Z98.61 Coronary angioplasty status; Z79.4 Long term (current) use of insulin; Z79.899 Other long term (current) drug therapy; Z79.51 Long term (current) use of inhaled steroids; Z88.2 Allergy status to sulfonamides; Z91.040 Latex allergy status
CPT/HCPCS: 36415; 36821; 80048; 83735; 85027; 85610; 85730; 86850; 86900; 86901; J0131; J0690; J1100; J2250; J2405; J2440; J3010

== ENCOUNTER → 2023-01-12 | Outpatient (REF) | payer MEDICARE, OTHER ==
[2023-01-12 17:25] LABS: APPEARANCE, URINE TURBID (CLEAR); BACTERIA, URINE AUTO 2+ (NEGATIVE); BILIRUBIN, URINE AUTO NEGATIVE (NEGATIVE); BLOOD, URINE BLOOD NEGATIVE (NEGATIVE); COLOR, URINE YELLOW (YELLOW); GLUCOSE, URINE (UA) AUTO NEGATIVE (NEGATIVE); KETONE, URINE AUTO NEGATIVE (NEGATIVE); LEUKOCYTE ESTERASE, URINE AUTO 3+ (NEGATIVE); NITRITE, URINE AUTO NEGATIVE (NEGATIVE); PROTEIN, URINE AUTO 2+ mg/dL (NEGATIVE); RBC, URINE AUTO 19 /HPF (0-3); SQUAMOUS EPITHELIAL CELL UR AU 0 /HPF (0-6); UROBILINOGEN, URINE AUTO 0.2 mg/dL (0.0-2.0); WBC, URINE AUTO TNTC /HPF (0-3)
== END ==
LOC: M LAB REF 16:49
PROVIDERS: ATTEND Internal Medicine Hematology
DX: N18.6 End stage renal disease (principal)

== ENCOUNTER → 2023-01-27 | Outpatient (CLI) | payer MEDICARE, OTHER | LOC: M PLALAB 09:07 | PROVIDERS: ATTEND Internal Medicine Hematology | DX: E03.9 Hypothyroidism, unspecified (principal) ==

== ENCOUNTER → 2023-02-03 | Outpatient (REF) | payer MEDICARE, OTHER ==
[~2023-02-03] MED LIST changes: -LOSA100T45 PO; +LOSA100T46 PO
== END ==
LOC: M SFHCWAGY 17:35
PROVIDERS: ATTEND Nurse Practitioner Family
DX: L29.2 Pruritus vulvae (principal)

== ENCOUNTER → 2023-03-17 | Outpatient (CLI) | payer MEDICARE, OTHER ==
[2023-03-17 13:42] LABS: HEMATOCRIT 34.1 % (36.0-47.0); HEMOGLOBIN 10.9 g/dl (12.0-15.5); MEAN CORPUSCULAR HEMOGLOBIN 33.2 pg (27.0-33.0); PLATELET COUNT, AUTOMATED 205 10^3/uL (150-450); RED BLOOD COUNT 3.28 10^6/uL (4.00-5.40); WHITE BLOOD COUNT 6.1 10^3/uL (4.0-10.0)
[2023-03-17 14:19] LABS: CALCIUM LEVEL 9.7 MG/DL (8.3-10.6); CREATININE FOR GFR 1.93 MG/DL (0.55-1.30); GLOMERULAR FILTRATION RATE 27.2 (>39)
== END ==
LOC: M PLALAB 10:24
PROVIDERS: ATTEND Internal Medicine Hematology
DX: Z01.818 Encounter for other preprocedural examination (principal); Z79.899 Other long term (current) drug therapy

== ENCOUNTER → 2023-03-24 | Outpatient (CLI) | payer MEDICARE, OTHER | LOC: M RAD 15:38 | PROVIDERS: ATTEND Physician Assistant | DX: S06.5X0A Traumatic subdural hemorrhage without loss of consciousness, initial encounter (principal); X58.XXXA Exposure to other specified factors, initial encounter; Y99.9 Unspecified external cause status; Y92.9 Unspecified place or not applicable ==

== ENCOUNTER → 2023-03-30 | Outpatient (CLI) | payer MEDICARE, OTHER | LOC: M WHC 11:03 | PROVIDERS: ATTEND Nurse Practitioner Family | DX: Z13.820 Encounter for screening for osteoporosis (principal) ==

== ENCOUNTER → 2023-05-23 | Outpatient (CLI) | payer MEDICARE, OTHER ==
[2023-05-23 18:00] LABS: HEMATOCRIT 38.2 % (36.0-47.0); HEMOGLOBIN 12.2 g/dl (12.0-15.5); MEAN CORPUSCULAR HEMOGLOBIN 31.6 pg (27.0-33.0); MEAN CORPUSCULAR HGB CONC 31.9 g/dl (32.0-36.5); PLATELET COUNT, AUTOMATED 188 10^3/uL (150-450); RED BLOOD COUNT 3.86 10^6/uL (4.00-5.40); WHITE BLOOD COUNT 7.8 10^3/uL (4.0-10.0)
[2023-05-23 18:10] LABS: HEMOGLOBIN A1c 7.6 % (4.0-6.0)
[2023-05-23 18:33] LABS: C REACTIVE PROTEIN QUANTITATIV 2.1 MG/DL (<1.0)
[2023-05-23 18:34] LABS: ALBUMIN 4.2 G/DL (3.2-5.2); BILIRUBIN,TOTAL 0.9 MG/DL (0.3-1.2); CALCIUM LEVEL 9.8 MG/DL (8.3-10.6); CHOLESTEROL RISK RATIO 3.25 (<5); CREATININE FOR GFR 1.39 MG/DL (0.55-1.30); GLOMERULAR FILTRATION RATE 39.8 (>39); LDL CHOLESTEROL 36.4 MG/DL (<100); POTASSIUM SERUM 3.4 MMOL/L (3.5-5.1); TOTAL PROTEIN 8.1 G/DL (5.7-8.2)
[2023-05-23 18:35] LABS: THYROID STIMULATING HORMONE 0.497 uIU/ML (0.55-4.78); TOTAL 25(OH) VITAMIN D 74.8 NG/ML (20.0-100.0)
[2023-05-23 18:36] LABS: FREE T4 1.54 NG/DL (0.89-1.76)
== END ==
LOC: M PLALAB 16:30
PROVIDERS: ATTEND Internal Medicine Hematology
DX: E11.3299 Type 2 diabetes mellitus with mild nonproliferative diabetic retinopathy without macular edema, unspecified eye (principal); Z79.890 Hormone replacement therapy; Z79.4 Long term (current) use of insulin

== ENCOUNTER 2023-05-29 06:10 | Emergency (ER) | payer MEDICARE, OTHER ==
[~2023-05-29] VITALS: Ht 170.2 cm; Wt 72.7 kg
[2023-05-29 06:49] LABS: BASO % 0.2 % (0.0-1.0); EOS # 0.1 10^3/uL (0.0-0.5); EOS % 1.7 % (0.0-3.0); HEMATOCRIT 34.2 % (36.0-47.0); HEMOGLOBIN 10.9 g/dl (12.0-15.5); LYMPH # 0.8 10^3/uL (1.5-5.0); MEAN CORPUSCULAR HEMOGLOBIN 31.2 pg (27.0-33.0); MEAN CORPUSCULAR HGB CONC 31.9 g/dl (32.0-36.5); MONO # 0.8 10^3/uL (0.0-0.8); MONO % 9.8 % (2.0-8.0); NEUTROPHILS # 6.7 10^3/uL (1.5-8.5); NEUTROPHILS % 78.9 % (36.0-66.0); PLATELET COUNT, AUTOMATED 229 10^3/uL (150-450); RED BLOOD COUNT 3.49 10^6/uL (4.00-5.40); WHITE BLOOD COUNT 8.5 10^3/uL (4.0-10.0)
[2023-05-29 07:06] LABS: ALBUMIN 3.6 G/DL (3.2-5.2); BILIRUBIN,DIRECT 0.4 MG/DL (<0.4); BILIRUBIN,TOTAL 0.6 MG/DL (0.3-1.2); CALCIUM LEVEL 9.4 MG/DL (8.3-10.6); CREATININE FOR GFR 2.77 MG/DL (0.55-1.30); POTASSIUM SERUM 4.6 MMOL/L (3.5-5.1); TOTAL PROTEIN 7.1 G/DL (5.7-8.2)
[2023-05-29] MEDS ORDERED: HYDROMORPHONE HCL 0.5 MG/ 0.5 ML SYRINGE IV ONE (09:50)
[2023-05-29] MEDS ORDERED: CVS50CAP PO (11:58)
[2023-05-29] MEDS ORDERED: ISOVUE-370 76% 100ML VIAL As Ordered ONE (12:21)
[2023-05-29] MEDS ORDERED: CEPH500C PO (13:39)
[2023-05-29] MEDS ORDERED: SENN-186 PO (13:39)
[2023-05-29] MEDS ORDERED: MM S100C PO (13:39)
[2023-05-29] MEDS: HYDROMORPHONE HCL 0.5 MG/ 0.5 ML SYRINGE IV ONE ×2 (13:40→14:17)
[2023-05-29] MEDS ORDERED: HYDROmorphone 2 MG TAB PO ONE (14:35)
[2023-05-29 14:52] VITALS: BP 128/62; O2SAT 98
[2023-05-29 14:59] VITALS: TEMP 97.5
== END 2023-05-29 15:05 | disposition home or self-care (01) ==
LOC: M ED 06:10
DX: N30.00 Acute cystitis without hematuria (principal); K59.00 Constipation, unspecified; E11.9 Type 2 diabetes mellitus without complications; N17.9 Acute kidney failure, unspecified; I10 Essential (primary) hypertension; Z79.4 Long term (current) use of insulin; Z88.2 Allergy status to sulfonamides; Z91.040 Latex allergy status; Z79.52 Long term (current) use of systemic steroids; Z79.899 Other long term (current) drug therapy
CPT/HCPCS: 36415; 74177; 80048; 80076; 81001; 83690; 85025; 87040; 87086; 96374; 99284; J1170; Q9967

== ENCOUNTER 2023-06-03 05:21 | Emergency (ER) | payer MEDICARE, OTHER ==
[~2023-06-03] VITALS: Ht 170.2 cm; Wt 79.8 kg
[~2023-06-03 05:21] MED LIST changes: +CEPH500C PO; +CVS50CAP PO; +MM S100C PO; +SENN-186 PO
[2023-06-03 07:01] LABS: BASO % 0.3 % (0.0-1.0); EOS # 0.2 10^3/uL (0.0-0.5); EOS % 1.4 % (0.0-3.0); HEMATOCRIT 36.8 % (36.0-47.0); HEMOGLOBIN 11.9 g/dl (12.0-15.5); LYMPH % 8.3 % (24.0-44.0); MEAN CORPUSCULAR HEMOGLOBIN 31.2 pg (27.0-33.0); MEAN CORPUSCULAR HGB CONC 32.3 g/dl (32.0-36.5); MEAN CORPUSCULAR VOLUME 96.6 fl (80.0-96.0); MONO # 0.9 10^3/uL (0.0-0.8); MONO % 8.2 % (2.0-8.0); NEUTROPHILS # 9.4 10^3/uL (1.5-8.5); NEUTROPHILS % 81.4 % (36.0-66.0); PLATELET COUNT, AUTOMATED 267 10^3/uL (150-450); RED BLOOD COUNT 3.81 10^6/uL (4.00-5.40); WHITE BLOOD COUNT 11.5 10^3/uL (4.0-10.0)
[2023-06-03 07:21] LABS: ALBUMIN 3.7 G/DL (3.2-5.2); BILIRUBIN,DIRECT 0.3 MG/DL (<0.4); BILIRUBIN,TOTAL 0.5 MG/DL (0.3-1.2); CALCIUM LEVEL 9.3 MG/DL (8.3-10.6); CREATININE FOR GFR 2.57 MG/DL (0.55-1.30); GLOMERULAR FILTRATION RATE 19.6 (>39); POTASSIUM SERUM 4.5 MMOL/L (3.5-5.1); TOTAL PROTEIN 7.3 G/DL (5.7-8.2)
[2023-06-03] MEDS ORDERED: MORPHINE 2 MG/ML 1ML VIAL IV ONE (12:10)
[2023-06-03] MEDS ORDERED: ONDANSETRON 4MG 2ML VIAL IV PRN (12:10)
[2023-06-03] MEDS ORDERED: ONDANSETRON 4MG ORAL DISINTEGRATING TAB PO ONE (12:45)
[2023-06-03] MEDS ORDERED: MORPHINE 2 MG/ML 1ML VIAL IM ONE (12:45)
[2023-06-03 12:56] VITALS: BP 152/69; TEMP 98.9; O2SAT 100
== END 2023-06-03 13:05 | disposition home or self-care (01) ==
LOC: M ED 05:21
DX: N10 Acute pyelonephritis (principal); N18.6 End stage renal disease; I25.2 Old myocardial infarction; E11.9 Type 2 diabetes mellitus without complications; I10 Essential (primary) hypertension; E78.5 Hyperlipidemia, unspecified; G47.30 Sleep apnea, unspecified; F10.10 Alcohol abuse, uncomplicated; Z86.79 Personal history of other diseases of the circulatory system; Z88.2 Allergy status to sulfonamides; Z91.040 Latex allergy status; Z79.52 Long term (current) use of systemic steroids; Z79.4 Long term (current) use of insulin; Z79.899 Other long term (current) drug therapy

== ENCOUNTER → 2023-06-14 | Outpatient (CLI) | payer MEDICARE, OTHER ==
[~2023-06-14] MED LIST changes: +LIDOCAINE W/EPINEPHRINE 1% 20ML VIAL As Ordered ONE
[2023-06-14 08:35] VITALS: TEMP 98.5
[2023-06-14 10:15] VITALS: BP 130/82; O2SAT 97
== END ==
LOC: M IRPRO 08:17
PROVIDERS: ATTEND Surgery Vascular Surgery
DX: N18.6 End stage renal disease (principal)

== ENCOUNTER → 2023-06-15 | Outpatient (CLI) | payer MEDICARE, OTHER ==
[~2023-06-15] MED LIST changes: -LIDOCAINE W/EPINEPHRINE 1% 20ML VIAL As Ordered ONE
[2023-06-15 10:39] LABS: APPEARANCE, URINE TURBID (CLEAR); BACTERIA, URINE AUTO 3+ (NEGATIVE); BILIRUBIN, URINE AUTO NEGATIVE (NEGATIVE); BLOOD, URINE BLOOD 3+ (NEGATIVE); COLOR, URINE YELLOW (YELLOW); GLUCOSE, URINE (UA) AUTO NEGATIVE (NEGATIVE); KETONE, URINE AUTO NEGATIVE (NEGATIVE); LEUKOCYTE ESTERASE, URINE AUTO 3+ (NEGATIVE); NITRITE, URINE AUTO NEGATIVE (NEGATIVE); PROTEIN, URINE AUTO 3+ mg/dL (NEGATIVE); RBC, URINE AUTO TNTC /HPF (0-3); SQUAMOUS EPITHELIAL CELL UR AU 0 /HPF (0-6); UROBILINOGEN, URINE AUTO 0.2 mg/dL (0.0-2.0); WBC, URINE AUTO TNTC /HPF (0-3)
== END ==
LOC: M PLALAB 09:01
PROVIDERS: ATTEND Internal Medicine Hematology
DX: N30.00 Acute cystitis without hematuria (principal)

== ENCOUNTER → 2023-08-05 | Outpatient (CLI) | payer MEDICARE, OTHER ==
[~2023-08-05] MED LIST changes: +GLIP5TAB17 PO; -GLIP5TAB8 PO
[2023-08-05 17:30] LABS: BASO % 0.3 % (0.0-1.0); EOS # 0.1 10^3/uL (0.0-0.5); EOS % 1.7 % (0.0-3.0); HEMATOCRIT 40.7 % (36.0-47.0); LYMPH # 0.8 10^3/uL (1.5-5.0); LYMPH % 12.4 % (24.0-44.0); MEAN CORPUSCULAR HEMOGLOBIN 32.1 pg (27.0-33.0); MEAN CORPUSCULAR HGB CONC 31.9 g/dl (32.0-36.5); MEAN CORPUSCULAR VOLUME 100.5 fl (80.0-96.0); MONO # 0.6 10^3/uL (0.0-0.8); MONO % 9.2 % (2.0-8.0); NEUTROPHILS # 5.1 10^3/uL (1.5-8.5); NEUTROPHILS % 76.2 % (36.0-66.0); PLATELET COUNT, AUTOMATED 202 10^3/uL (150-450); RED BLOOD COUNT 4.05 10^6/uL (4.00-5.40); WHITE BLOOD COUNT 6.6 10^3/uL (4.0-10.0)
[2023-08-05 17:55] LABS: ALBUMIN 4.4 G/DL (3.2-5.2); BILIRUBIN,TOTAL 1.1 MG/DL (0.3-1.2); CALCIUM LEVEL 9.9 MG/DL (8.3-10.6); CREATININE FOR GFR 1.57 MG/DL (0.55-1.30); GLOMERULAR FILTRATION RATE 34.5 (>39); POTASSIUM SERUM 3.9 MMOL/L (3.5-5.1); TOTAL PROTEIN 8.5 G/DL (5.7-8.2)
[2023-08-05 17:59] LABS: THYROID STIMULATING HORMONE 4.41 uIU/ML (0.55-4.78)
== END ==
LOC: M PLALAB 16:18
PROVIDERS: ATTEND Internal Medicine Cardiovascular Disease
DX: I50.32 Chronic diastolic (congestive) heart failure (principal); I48.91 Unspecified atrial fibrillation; I35.0 Nonrheumatic aortic (valve) stenosis; I11.0 Hypertensive heart disease with heart failure; I27.81 Cor pulmonale (chronic)

== ENCOUNTER → 2023-09-07 | Outpatient (CLI) | payer MEDICARE, OTHER ==
[2023-09-07 14:32] LABS: ALBUMIN 3.7 G/DL (3.2-5.2); BILIRUBIN,TOTAL 0.8 MG/DL (0.3-1.2); CALCIUM LEVEL 8.9 MG/DL (8.3-10.6); CREATININE FOR GFR 3.24 MG/DL (0.55-1.30); GLOMERULAR FILTRATION RATE 14.9 (>39); POTASSIUM SERUM 4.3 MMOL/L (3.5-5.1); TOTAL PROTEIN 6.5 G/DL (5.7-8.2)
[2023-09-07 14:37] LABS: FREE T4 1.1 NG/DL (0.89-1.76); THYROID STIMULATING HORMONE 3.085 uIU/ML (0.55-4.78)
[2023-09-07 15:49] LABS: HEMOGLOBIN A1c 8.2 % (4.0-6.0)
== END ==
LOC: M PLALAB 08:58
PROVIDERS: ATTEND Internal Medicine Hematology
DX: R79.89 Other specified abnormal findings of blood chemistry (principal); E11.3299 Type 2 diabetes mellitus with mild nonproliferative diabetic retinopathy without macular edema, unspecified eye; N18.6 End stage renal disease; I50.32 Chronic diastolic (congestive) heart failure

== ENCOUNTER → 2023-11-22 | Outpatient (REF) | payer MEDICARE, OTHER ==
[~2023-11-22] MED LIST changes: +ASPI81TAEC PO; +CEFD1CAP9 PO; +CEVI1CAP PO; -FLON1SPR; +FLON1SPR NARES; -HYDR-3911 PO; -HYDR25TA PO; +HYDR25TA88 PO; +HYDR50TA46 PO; +METO1TAB7 PO; +METO5TAB2 PO; +SENN-83 PO; -SENN1TAB41 PO; +SENN1TAB85 PO
[2023-11-22 17:10] LABS: APPEARANCE, URINE TURBID (CLEAR); BACTERIA, URINE AUTO 2+ (NEGATIVE); BILIRUBIN, URINE AUTO NEGATIVE (NEGATIVE); BLOOD, URINE BLOOD 3+ (NEGATIVE); COLOR, URINE AMBER (YELLOW); GLUCOSE, URINE (UA) AUTO NEGATIVE (NEGATIVE); KETONE, URINE AUTO NEGATIVE (NEGATIVE); LEUKOCYTE ESTERASE, URINE AUTO 3+ (NEGATIVE); NITRITE, URINE AUTO NEGATIVE (NEGATIVE); PROTEIN, URINE AUTO 2+ mg/dL (NEGATIVE); RBC, URINE AUTO TNTC /HPF (0-3); SPECIFIC GRAVITY URINE AUTO 1.023 (1.002-1.035); SQUAMOUS EPITHELIAL CELL UR AU 3 /HPF (0-6); UROBILINOGEN, URINE AUTO 0.2 mg/dL (0.0-2.0); WBC, URINE AUTO TNTC /HPF (0-3)
== END ==
LOC: M LAB REF 16:40
PROVIDERS: ATTEND Nurse Practitioner Family
DX: N39.0 Urinary tract infection, site not specified (principal)

== ENCOUNTER 2023-11-25 15:39 | Observation (INO) | payer MEDICARE, OTHER ==
[~2023-11-25] VITALS: Ht 170.2 cm; Wt 86.2 kg
[~2023-11-25 15:39] MED LIST changes: -ASPI81TAEC PO; -CEFD1CAP9 PO; -CEVI1CAP PO; -METO1TAB7 PO; -METO5TAB2 PO; -SENN-83 PO; +SENN1TAB41 PO; -SENN1TAB85 PO
[2023-11-25 16:40] LABS: VENOUS BASE EXCESS 5.9 (-2.0-2.0); VENOUS HCO3 29.8 MMOL/L (23.0-27.0); VENOUS PARTIAL PRESSURE O2 43.3 mmHg (30.0-50.0); VENOUS STANDARD HCO3 29.4 MMOL/L; VENOUS TOTAL CO2 31.1 MMOL/L (24.0-28.0)
[2023-11-25 16:57] LABS: BASO % 0.3 % (0.0-1.0); EOS % 0.1 % (0.0-3.0); HEMATOCRIT 33.7 % (36.0-47.0); HEMOGLOBIN 11.4 g/dl (12.0-15.5); LYMPH # 0.7 10^3/uL (1.5-5.0); LYMPH % 9.3 % (24.0-44.0); MEAN CORPUSCULAR HEMOGLOBIN 33.5 pg (27.0-33.0); MEAN CORPUSCULAR HGB CONC 33.8 g/dl (32.0-36.5); MEAN CORPUSCULAR VOLUME 99.1 fl (80.0-96.0); MONO # 0.6 10^3/uL (0.0-0.8); MONO % 8.6 % (2.0-8.0); NEUTROPHILS % 81.4 % (36.0-66.0); PLATELET COUNT, AUTOMATED 166 10^3/uL (150-450); WHITE BLOOD COUNT 7.4 10^3/uL (4.0-10.0)
[2023-11-25 17:11] LABS: ALBUMIN 3.8 G/DL (3.2-5.2); BILIRUBIN,DIRECT 0.8 MG/DL (<0.4); BILIRUBIN,TOTAL 1.3 MG/DL (0.3-1.2); CREATININE FOR GFR 1.63 MG/DL (0.55-1.30); POTASSIUM SERUM 3.2 MMOL/L (3.5-5.1); TOTAL PROTEIN 7.1 G/DL (5.7-8.2)
[2023-11-25 17:13] LABS: THYROID STIMULATING HORMONE 4.528 uIU/ML (0.55-4.78)
[2023-11-25] MEDS ORDERED: VENTAER INH (17:58)
[2023-11-25] MEDS ORDERED: SENN-83 PO (17:58)
[2023-11-25] MEDS ORDERED: CEVI1CAP PO (18:05)
[2023-11-25] MEDS ORDERED: METO5TAB2 PO (18:05)
[2023-11-25] MEDS ORDERED: HOME MED LIST COMPLETE! XX SCH (18:15)
[2023-11-25] MEDS ORDERED: ALBUTEROL 90 MCG/ACT 8GM HFA INHALER INH PRN (18:50)
[2023-11-25] MEDS ORDERED: SENNA 8.6 MG TAB (SENOKOT) PO PRN (18:50)
[2023-11-25] MEDS: METOCLOPRAMIDE 5 MG TAB PO SCH (20:15)
[2023-11-25] MEDS: TORSEMIDE 100 MG TAB PO SCH (20:15)
[2023-11-25] MEDS ORDERED: GLUCAGON INJ 1MG VIAL SC PRN (20:25)
[2023-11-25] MEDS ORDERED: GLUCOSE 4GM CHEW TABLET PO PRN (20:25)
[2023-11-25] MEDS ORDERED: DEXTROSE 50% 50ML SYRINGE IV PRN (20:25)
[2023-11-25 20:59] LABS: CALCIUM LEVEL 8.5 MG/DL (8.3-10.6); CREATININE FOR GFR 1.94 MG/DL (0.55-1.30); POTASSIUM SERUM 3.7 MMOL/L (3.5-5.1)
[2023-11-25] MEDS: INSULIN LISPRO (NovoLOG) PER UNIT SC SCH (21:00)
[2023-11-25 21:09] VITALS: BP 139/70; TEMP 97.3; O2SAT 94
[2023-11-25] MEDS: cefTRIAXone SOD 2 GM in D5W MINI-BAG PLUS 50 ML IV SCH (22:04)
[2023-11-25] MEDS: HEPARIN SOD (PORCINE) 5000UNITS/ML 1ML VIAL/SYRINGE SC SCH (22:06)
[2023-11-25] MEDS: ATORVASTATIN 20 MG TAB PO SCH (22:07)
[2023-11-25] MEDS: CALCIUM/VITAMIN D 500 MG TAB PO SCH (22:07)
[2023-11-25] MEDS: rOPINIRole 2MG TAB PO SCH (22:19)
[2023-11-25] MEDS: PERCOCET 5MG/325MG TAB PO PRN (22:21)
[2023-11-25] MEDS: ONDANSETRON 4MG ORAL DISINTEGRATING TAB PO PRN (22:21)
[2023-11-26] MEDS: traMADol 50 MG TAB PO ONE (02:09)
[2023-11-26] MEDS: LEVOTHYROXINE 125MCG TABLET (0.125MG) PO SCH (05:13)
[2023-11-26 06:00] VITALS: BP 133/63; TEMP 98.6; O2SAT 90
[2023-11-26] MEDS ORDERED: NITROGLYCERIN 0.4MG SUBL TABLET SL PRN (06:50)
[2023-11-26] MEDS ORDERED: FLUTICASONE PROP 0.05% NASAL SPRAY 16 GM (FLONASE) NARES PRN (06:50)
[2023-11-26 06:55] LABS: CALCIUM LEVEL 8.8 MG/DL (8.3-10.6); CREATININE FOR GFR 2.36 MG/DL (0.55-1.30); GLOMERULAR FILTRATION RATE 21.5 (>39); MAGNESIUM LEVEL 2.1 MG/DL (1.8-2.4); POTASSIUM SERUM 3.9 MMOL/L (3.5-5.1)
[2023-11-26 07:07] LABS: PROCALCITONIN 0.28 ng/ml
[2023-11-26] MEDS: INSULIN LISPRO (NovoLOG) PER UNIT SC SCH (08:00)
[2023-11-26] MEDS: LEVEMIR (INSULIN DETEMIR) 1 UNITS/0.01ML SC SCH (08:00)
[2023-11-26] MEDS: ASCORBIC ACID 500 MG TAB PO SCH (08:01)
[2023-11-26] MEDS: MAGNESIUM GLUCONATE 500 MG TAB PO SCH (08:01)
[2023-11-26] MEDS: VITAMIN D 1,000 INTERNATIONAL UNITS TABLET PO SCH (08:01)
[2023-11-26] MEDS ORDERED: HEPARIN 1,000UNITS/ML 10ML VIAL (FOR RADIOLOGY & DIALYSIS ONLY) XX SCH (09:10)
[2023-11-26] MEDS ORDERED: SODIUM CHLORIDE 0.9% 1000ML IV PRN (09:10)
[2023-11-26] MEDS ORDERED: LIDOCAINE 1% SDV 5ML VIAL SC PRN (09:10)
[2023-11-26] MEDS: ACETAMINOPHEN TAB 650MG DOSE (2X325MG) PO PRN (13:54)
[2023-11-26 19:21] LABS: CALCIUM LEVEL 8.8 MG/DL (8.3-10.6); CREATININE FOR GFR 1.55 MG/DL (0.55-1.30); POTASSIUM SERUM 3.5 MMOL/L (3.5-5.1)
[2023-11-26 19:23] LABS: URIC ACID 1.7 MG/DL (3.1-7.8)
[2023-11-26] MEDS: PERCOCET 5MG/325MG TAB PO PRN (20:43)
[2023-11-26] MEDS ORDERED: rOPINIRole 2MG TAB PO SCH (21:00)
[2023-11-26 22:00] VITALS: BP 146/77; TEMP 97.3; O2SAT 95
[2023-11-27] MEDS: LIDOCAINE 5% (LIDODERM) PATCH TD ONE (00:07)
[2023-11-27 00:58] VITALS: BP 142/88; TEMP 99.7; O2SAT 91
[2023-11-27 06:00] VITALS: BP 110/59; TEMP 98.6; O2SAT 92
[2023-11-27 06:40] LABS: HEMATOCRIT 35.7 % (36.0-47.0); HEMOGLOBIN 11.6 g/dl (12.0-15.5); MEAN CORPUSCULAR HEMOGLOBIN 33.2 pg (27.0-33.0); MEAN CORPUSCULAR HGB CONC 32.5 g/dl (32.0-36.5); MEAN CORPUSCULAR VOLUME 102.3 fl (80.0-96.0); PLATELET COUNT, AUTOMATED 162 10^3/uL (150-450); RED BLOOD COUNT 3.49 10^6/uL (4.00-5.40); WHITE BLOOD COUNT 7.7 10^3/uL (4.0-10.0)
[2023-11-27 07:12] LABS: ALBUMIN 3.6 G/DL (3.2-5.2); CALCIUM LEVEL 8.8 MG/DL (8.3-10.6); CREATININE FOR GFR 2.44 MG/DL (0.55-1.30); GLOMERULAR FILTRATION RATE 20.7 (>39)
[2023-11-27] MEDS: METOCLOPRAMIDE 5 MG TAB PO ONE (08:57)
[2023-11-27] MEDS: METOPROLOL TART 25 MG TABLET PO SCH (09:10)
[2023-11-27] MEDS: ASPIRIN 81MG ENTERIC TABLET PO SCH (12:44)
[2023-11-27 14:00] VITALS: BP 132/60; TEMP 97.6; O2SAT 97
[2023-11-27 20:07] VITALS: BP 132/61; TEMP 97.7; O2SAT 93
[2023-11-28 05:22] VITALS: BP 124/58; TEMP 98.2; O2SAT 93
[2023-11-28 05:51] LABS: HEMATOCRIT 34.6 % (36.0-47.0); HEMOGLOBIN 11.1 g/dl (12.0-15.5); MEAN CORPUSCULAR HEMOGLOBIN 32.6 pg (27.0-33.0); MEAN CORPUSCULAR HGB CONC 32.1 g/dl (32.0-36.5); MEAN CORPUSCULAR VOLUME 101.5 fl (80.0-96.0); PLATELET COUNT, AUTOMATED 161 10^3/uL (150-450); RED BLOOD COUNT 3.41 10^6/uL (4.00-5.40); WHITE BLOOD COUNT 8.3 10^3/uL (4.0-10.0)
[2023-11-28] MEDS ORDERED: HEPARIN 1,000UNITS/ML 10ML VIAL (FOR RADIOLOGY & DIALYSIS ONLY) XX SCH (06:00)
[2023-11-28] MEDS ORDERED: LIDOCAINE 1% SDV 5ML VIAL SC PRN (06:00)
[2023-11-28] MEDS ORDERED: SODIUM CHLORIDE 0.9% 1000ML IV PRN (06:00)
[2023-11-28 06:15] LABS: ALBUMIN 3.4 G/DL (3.2-5.2); CALCIUM LEVEL 8.9 MG/DL (8.3-10.6); CREATININE FOR GFR 3.59 MG/DL (0.55-1.30); GLOMERULAR FILTRATION RATE 13.3 (>39); PHOSPHORUS LEVEL 3.7 MG/DL (2.4-5.1); POTASSIUM SERUM 4.5 MMOL/L (3.5-5.1)
[2023-11-28 06:49] VITALS: BP 124/58
[2023-11-28] MEDS ORDERED: CEFD1CAP9 PO (11:15)
[2023-11-28] MEDS ORDERED: METO1TAB7 PO (11:15)
[2023-11-28] MEDS ORDERED: ASPI81TAEC PO (11:15)
[2023-11-28 14:00] VITALS: BP 128/60; TEMP 98.4; O2SAT 90
[2023-11-28] MEDS: PREVNAR-20 VACCINE 0.5ML SYRINGE IM.IMMUN ONE (15:04)
== END 2023-11-28 15:40 | disposition home or self-care (01) ==
LOC: M ED 15:39 → EDBD 15:39 → M ED INP 15:40 → ENRESERV 20:39 → M MSPAV 21:09
PROVIDERS: ADMIT Student in an Organized Health Care Education/Training Program; ATTEND Internal Medicine
DX: N39.0 Urinary tract infection, site not specified (principal); I50.33 Acute on chronic diastolic (congestive) heart failure; L97.929 Non-pressure chronic ulcer of unspecified part of left lower leg with unspecified severity; N18.6 End stage renal disease; Z99.2 Dependence on renal dialysis; D63.1 Anemia in chronic kidney disease; E03.9 Hypothyroidism, unspecified; E78.5 Hyperlipidemia, unspecified; E11.9 Type 2 diabetes mellitus without complications; Z79.4 Long term (current) use of insulin; I48.91 Unspecified atrial fibrillation; Z86.73 Personal history of transient ischemic attack (TIA), and cerebral infarction without residual deficits; E87.1 Hypo-osmolality and hyponatremia; R74.01 Elevation of levels of liver transaminase levels; G25.81 Restless legs syndrome; I25.10 Atherosclerotic heart disease of native coronary artery without angina pectoris; Z79.82 Long term (current) use of aspirin; Z79.899 Other long term (current) drug therapy; Z91.040 Latex allergy status; Z88.2 Allergy status to sulfonamides
CPT/HCPCS: 36415; 70450; 71045; 76705; 80048; 80069; 80076; 82803; 83605; 83735; 83880; 83930; 84145; 84443; 84550; 85025; 85027; 87040; 87486; 87581; 87633; 87798; 90677; 90935; 93005; 93041; 93306; 94760; 96365; 96366; 96372; 97116; 97161; 99285; G0009; G0378; J0696; J1815

== ENCOUNTER → 2023-12-06 | Outpatient (CLI) | payer MEDICARE, OTHER ==
[~2023-12-06] MED LIST changes: +ASPI81TAEC PO; +CEFD1CAP9 PO; +CEVI1CAP PO; +METO1TAB7 PO; +METO5TAB2 PO; +SENN-83 PO; -SENN1TAB41 PO; +SENN1TAB85 PO
[2023-12-06 17:57] LABS: BASO % 0.2 % (0.0-1.0); EOS % 0.6 % (0.0-3.0); HEMATOCRIT 36.4 % (36.0-47.0); HEMOGLOBIN 11.7 g/dl (12.0-15.5); LYMPH # 0.9 10^3/uL (1.5-5.0); LYMPH % 13.5 % (24.0-44.0); MEAN CORPUSCULAR HEMOGLOBIN 33.1 pg (27.0-33.0); MEAN CORPUSCULAR HGB CONC 32.1 g/dl (32.0-36.5); MEAN CORPUSCULAR VOLUME 102.8 fl (80.0-96.0); MONO # 0.8 10^3/uL (0.0-0.8); MONO % 11.5 % (2.0-8.0); NEUTROPHILS # 4.8 10^3/uL (1.5-8.5); NEUTROPHILS % 73.6 % (36.0-66.0); PLATELET COUNT, AUTOMATED 140 10^3/uL (150-450); RED BLOOD COUNT 3.54 10^6/uL (4.00-5.40); WHITE BLOOD COUNT 6.5 10^3/uL (4.0-10.0)
[2023-12-06 18:15] LABS: ALBUMIN 3.5 G/DL (3.2-5.2); BILIRUBIN,TOTAL 0.8 MG/DL (0.3-1.2); CREATININE FOR GFR 3.91 MG/DL (0.55-1.30); POTASSIUM SERUM 4.4 MMOL/L (3.5-5.1); TOTAL PROTEIN 6.6 G/DL (5.7-8.2)
== END ==
LOC: M PLALAB 16:08
PROVIDERS: ATTEND Internal Medicine Hematology
DX: E11.3299 Type 2 diabetes mellitus with mild nonproliferative diabetic retinopathy without macular edema, unspecified eye (principal); R06.09 Other forms of dyspnea

== ENCOUNTER → 2023-12-22 | Outpatient (CLI) | payer MEDICARE, OTHER | LOC: M RAD 11:41 | PROVIDERS: ATTEND Surgery | DX: L97.922 Non-pressure chronic ulcer of unspecified part of left lower leg with fat layer exposed (principal); R68.89 Other general symptoms and signs; I70.202 Unspecified atherosclerosis of native arteries of extremities, left leg ==

== ENCOUNTER 2024-01-29 10:48 | Observation (INO) | payer MEDICARE, OTHER ==
[~2024-01-29] VITALS: Ht 170.2 cm; Wt 89.9 kg
[~2024-01-29 10:48] MED LIST changes: +DOXY-323 PO; -DOXY-443 PO
[2024-01-29] MEDS ORDERED: ISOVUE-370 76% 100ML VIAL As Ordered ONE (11:00)
[2024-01-29 11:17] LABS: BASO % 0.3 % (0.0-1.0); EOS # 0.1 10^3/uL (0.0-0.5); EOS % 0.8 % (0.0-3.0); HEMATOCRIT 34.9 % (36.0-47.0); HEMOGLOBIN 11.3 g/dl (12.0-15.5); LYMPH # 0.6 10^3/uL (1.5-5.0); LYMPH % 7.5 % (24.0-44.0); MEAN CORPUSCULAR HEMOGLOBIN 33.4 pg (27.0-33.0); MEAN CORPUSCULAR HGB CONC 32.4 g/dl (32.0-36.5); MEAN CORPUSCULAR VOLUME 103.3 fl (80.0-96.0); MONO # 0.6 10^3/uL (0.0-0.8); MONO % 7.6 % (2.0-8.0); NEUTROPHILS # 6.6 10^3/uL (1.5-8.5); NEUTROPHILS % 83.5 % (36.0-66.0); PLATELET COUNT, AUTOMATED 156 10^3/uL (150-450); RED BLOOD COUNT 3.38 10^6/uL (4.00-5.40); WHITE BLOOD COUNT 7.9 10^3/uL (4.0-10.0)
[2024-01-29 11:29] LABS: INR 1.23; PARTIAL THROMBOPLASTIN TIME 29.1 SECONDS (24.8-34.2); PROTHROMBIN TIME 15.2 SECONDS (12.5-14.5)
[2024-01-29 11:36] VITALS: BP 132/61; TEMP 99; O2SAT 96
[2024-01-29 11:49] LABS: CK-MB VALUE MASS 2.2 NG/ML (<3.6)
[2024-01-29 11:51] LABS: CALCIUM LEVEL 8.4 MG/DL (8.3-10.6); CREATININE FOR GFR 4.04 MG/DL (0.55-1.30); GLOMERULAR FILTRATION RATE 11.6 (>39); MAGNESIUM LEVEL 2.2 MG/DL (1.8-2.4); POTASSIUM SERUM 5.5 MMOL/L (3.5-5.1)
[2024-01-29 11:53] LABS: THYROID STIMULATING HORMONE 9.57 uIU/ML (0.55-4.78)
[2024-01-29 11:59] LABS: MB/CK RELATIVE INDEX 2.55 (< OR =4)
[2024-01-29 12:01] LABS: RSV AMPLIFICATION NEGATIVE (NEGATIVE)
[2024-01-29 12:51] LABS: CK-MB VALUE MASS 2.4 NG/ML (<3.6)
[2024-01-29 12:52] LABS: MB/CK RELATIVE INDEX 2.89 (< OR =4)
[2024-01-29] MEDS ORDERED: MOM 30ML SUSPENSION UDC PO PRN (13:30)
[2024-01-29] MEDS ORDERED: ACETAMINOPHEN TAB 650MG DOSE (2X325MG) PO PRN (13:30)
[2024-01-29] MEDS ORDERED: MAALOX 30 ML SUSP *UDC PO PRN (13:30)
[2024-01-29] MEDS ORDERED: GLUCAGON INJ 1MG VIAL SC PRN (13:35)
[2024-01-29] MEDS ORDERED: GLUCOSE 4 GM CHEW PO PRN (13:35)
[2024-01-29] MEDS ORDERED: DEXTROSE 50% 50ML SYRINGE IV PRN (13:35)
[2024-01-29] MEDS: INSULIN LISPRO (NovoLOG) PER UNIT SC STA (13:57)
[2024-01-29] MEDS ORDERED: OYST1TAB PO (14:23)
[2024-01-29] MEDS ORDERED: METO1TAB32 PO (14:23)
[2024-01-29] MEDS ORDERED: HOME MED LIST COMPLETE! XX SCH (14:25)
[2024-01-29 15:51] VITALS: BP 126/61; TEMP 97.3; O2SAT 94
[2024-01-29] MEDS: INSULIN LISPRO (NovoLOG) PER UNIT SC SCH ×2 (17:22→20:01)
[2024-01-29] MEDS ORDERED: ALBUTEROL 90 MCG/ACT 8GM HFA INHALER INH PRN (17:25)
[2024-01-29] MEDS ORDERED: ONDANSETRON 4MG ORAL DISINTEGRATING TAB PO PRN (17:25)
[2024-01-29] MEDS ORDERED: SENNA 8.6 MG TAB (SENOKOT) PO PRN (17:25)
[2024-01-29] MEDS: VITAMIN D 1,000 INTERNATIONAL UNITS TABLET PO SCH (17:59)
[2024-01-29] MEDS: ASCORBIC ACID 500 MG TAB PO SCH (17:59)
[2024-01-29 18:17] LABS: C REACTIVE PROTEIN QUANTITATIV 0.7 MG/DL (<1.0)
[2024-01-29 18:30] LABS: PROCALCITONIN 0.23 ng/ml
[2024-01-29 19:06] VITALS: BP 119/61; TEMP 97.6; O2SAT 91
[2024-01-29] MEDS: TORSEMIDE 100 MG TAB PO SCH (20:00)
[2024-01-29] MEDS: ATORVASTATIN 20 MG TAB PO SCH (20:09)
[2024-01-29] MEDS: HEPARIN SOD (PORCINE) 5000UNITS/ML 1ML VIAL/SYRINGE SC SCH (20:09)
[2024-01-29] MEDS: PERCOCET 5MG/325MG TAB PO SCH (20:13)
[2024-01-29 20:14] VITALS: BP 128/61; TEMP 97.5; O2SAT 92
[2024-01-29 23:58] VITALS: BP 134/62; TEMP 98; O2SAT 90
[2024-01-30 03:30] VITALS: BP 131/63; TEMP 96.8; O2SAT 92
[2024-01-30] MEDS ORDERED: SODIUM CHLORIDE 0.9% 1000ML IV PRN (06:00)
[2024-01-30] MEDS ORDERED: HEPARIN 1,000UNITS/ML 10ML VIAL (FOR RADIOLOGY & DIALYSIS ONLY) IV PRN (06:00)
[2024-01-30] MEDS ORDERED: LIDOCAINE 1% SDV 5ML VIAL SC PRN (06:00)
[2024-01-30] MEDS ORDERED: HEPARIN 1,000UNITS/ML 10ML VIAL (FOR RADIOLOGY & DIALYSIS ONLY) XX SCH (06:00)
[2024-01-30 06:15] LABS: CALCIUM LEVEL 8.7 MG/DL (8.3-10.6); CREATININE FOR GFR 4.21 MG/DL (0.55-1.30); MAGNESIUM LEVEL 2.2 MG/DL (1.8-2.4); POTASSIUM SERUM 5.1 MMOL/L (3.5-5.1)
[2024-01-30] MEDS: DEXTROSE 50% 50ML SYRINGE IV STA (06:37)
[2024-01-30] MEDS: LEVOTHYROXINE 125MCG TABLET (0.125MG) PO SCH (06:42)
[2024-01-30 07:35] VITALS: BP 135/68; TEMP 97.1; O2SAT 92
[2024-01-30 13:12] VITALS: BP 140/90
[2024-01-30] MEDS: METOPROLOL SUCC *XL* 25MG TAB (TopROL *XL*) PO SCH (13:12)
[2024-01-30] MEDS: ASPIRIN 81MG ENTERIC TABLET PO SCH (13:12)
[2024-01-30] MEDS: amLODIPine 5 MG TAB PO SCH (13:13)
[2024-01-30] MEDS: OYSTER SHELL CALCIUM 500 MG TAB PO SCH (17:08)
[2024-01-30] MEDS: MAGNESIUM GLUCONATE 500 MG TAB PO SCH (17:08)
== END 2024-01-30 17:28 | disposition home or self-care (01) ==
LOC: M ED 10:48 → INTOOBSV 13:27 → M ED INP 13:27 → M PCU 15:32
PROVIDERS: ADMIT Student in an Organized Health Care Education/Training Program; ATTEND Student in an Organized Health Care Education/Training Program
DX: G45.9 Transient cerebral ischemic attack, unspecified (principal); N18.6 End stage renal disease; Z99.2 Dependence on renal dialysis; E11.9 Type 2 diabetes mellitus without complications; Z79.4 Long term (current) use of insulin; D63.1 Anemia in chronic kidney disease; I50.32 Chronic diastolic (congestive) heart failure; Z95.1 Presence of aortocoronary bypass graft; I48.91 Unspecified atrial fibrillation; E03.9 Hypothyroidism, unspecified; E78.00 Pure hypercholesterolemia, unspecified; E78.5 Hyperlipidemia, unspecified; Z79.82 Long term (current) use of aspirin; Z79.899 Other long term (current) drug therapy; Z91.040 Latex allergy status; Z88.2 Allergy status to sulfonamides; I27.20 Pulmonary hypertension, unspecified; E87.1 Hypo-osmolality and hyponatremia
CPT/HCPCS: 36415; 70450; 70496; 70498; 70551; 71045; 80047; 80048; 81001; 82140; 82550; 82553; 83605; 83735; 84145; 84439; 84443; 84484; 85025; 85610; 85730; 86140; 86850; 86900; 86901; 87086; 87631; 90935; 93005; 93041; 93306; 94760; 95819; 96372; 96374; 97161; 99285; G0378; J1815; Q9967

== ENCOUNTER → 2024-01-30 | Outpatient (CLI) | payer MEDICARE, OTHER ==
[~2024-01-30] MED LIST changes: -DOXY-323 PO; +DOXY-443 PO; +OYST1TAB PO
== END ==
LOC: M EKG 17:38
PROVIDERS: ATTEND Student in an Organized Health Care Education/Training Program
DX: G45.9 Transient cerebral ischemic attack, unspecified (principal)

== ENCOUNTER → 2024-02-09 | Outpatient (REF) | payer MEDICARE, OTHER ==
[~2024-02-09] MED LIST changes: +DOXY-323 PO; -DOXY-443 PO
[2024-02-09 14:14] LABS: APPEARANCE, URINE TURBID (CLEAR); BACTERIA, URINE AUTO NEGATIVE (NEGATIVE); BILIRUBIN, URINE AUTO NEGATIVE (NEGATIVE); BLOOD, URINE BLOOD 3+ (NEGATIVE); COLOR, URINE AMBER (YELLOW); GLUCOSE, URINE (UA) AUTO NEGATIVE (NEGATIVE); KETONE, URINE AUTO TRACE mg/dL (NEGATIVE); LEUKOCYTE ESTERASE, URINE AUTO 2+ (NEGATIVE); NITRITE, URINE AUTO NEGATIVE (NEGATIVE); PROTEIN, URINE AUTO 3+ mg/dL (NEGATIVE); RBC, URINE AUTO TNTC /HPF (0-3); SPECIFIC GRAVITY URINE AUTO 1.022 (1.002-1.035); SQUAMOUS EPITHELIAL CELL UR AU 0 /HPF (0-6); UROBILINOGEN, URINE AUTO 0.2 mg/dL (0.0-2.0); WBC, URINE AUTO TNTC /HPF (0-3)
== END ==
LOC: M SFHCPLAZ 12:07
PROVIDERS: ATTEND Family Medicine
DX: R30.0 Dysuria (principal)

== ENCOUNTER → 2024-02-14 | Outpatient (REF) | payer MEDICARE, OTHER ==
[2024-02-14 13:32] LABS: APPEARANCE, URINE TURBID (CLEAR); BACTERIA, URINE AUTO NEGATIVE (NEGATIVE); BILIRUBIN, URINE AUTO NEGATIVE (NEGATIVE); BLOOD, URINE BLOOD NEGATIVE (NEGATIVE); COLOR, URINE AMBER (YELLOW); GLUCOSE, URINE (UA) AUTO NEGATIVE (NEGATIVE); KETONE, URINE AUTO TRACE mg/dL (NEGATIVE); LEUKOCYTE ESTERASE, URINE AUTO 2+ (NEGATIVE); NITRITE, URINE AUTO NEGATIVE (NEGATIVE); PROTEIN, URINE AUTO 2+ mg/dL (NEGATIVE); RBC, URINE AUTO 46 /HPF (0-3); SPECIFIC GRAVITY URINE AUTO 1.023 (1.002-1.035); SQUAMOUS EPITHELIAL CELL UR AU 52 /HPF (0-6); TRANSITIONAL EPITHELIAL AUTO 3 /HPF; WBC, URINE AUTO TNTC /HPF (0-3)
== END ==
LOC: M SMT 12:42
PROVIDERS: ATTEND Nurse Practitioner Family
DX: N39.0 Urinary tract infection, site not specified (principal)

== ENCOUNTER → 2024-02-29 | Outpatient (CLI) | payer MEDICARE, OTHER ==
[2024-02-29 13:45] LABS: BASO % 0.6 % (0.0-1.0); EOS # 0.1 10^3/uL (0.0-0.5); EOS % 0.9 % (0.0-3.0); HEMATOCRIT 33.2 % (36.0-47.0); HEMOGLOBIN 10.8 g/dl (12.0-15.5); LYMPH # 0.8 10^3/uL (1.5-5.0); LYMPH % 12.5 % (24.0-44.0); MEAN CORPUSCULAR HEMOGLOBIN 34.6 pg (27.0-33.0); MEAN CORPUSCULAR HGB CONC 32.5 g/dl (32.0-36.5); MEAN CORPUSCULAR VOLUME 106.4 fl (80.0-96.0); MONO # 0.9 10^3/uL (0.0-0.8); MONO % 13.4 % (2.0-8.0); NEUTROPHILS # 4.6 10^3/uL (1.5-8.5); NEUTROPHILS % 72.1 % (36.0-66.0); PLATELET COUNT, AUTOMATED 196 10^3/uL (150-450); RED BLOOD COUNT 3.12 10^6/uL (4.00-5.40); WHITE BLOOD COUNT 6.3 10^3/uL (4.0-10.0)
[2024-02-29 14:11] LABS: C REACTIVE PROTEIN QUANTITATIV < 0.40 MG/DL (<1.0)
[2024-02-29 14:13] LABS: IRON (FE) 78 UG/DL (50-170); PERCENT SATURATION 25.2 % (13.2-45.0); TOTAL IRON BINDING CAPACITY 309 UG/DL (250-425)
[2024-02-29 14:14] LABS: ALBUMIN 3.7 G/DL (3.2-5.2); ALKALINE PHOSPHATASE 195 U/L (46-116); ALT/SGPT 45 U/L (7.0-40); AST/SGOT 43 U/L (<34); BILIRUBIN,TOTAL 0.9 MG/DL (0.3-1.2); BLOOD UREA NITROGEN 36 MG/DL (9-23); CALCIUM LEVEL 8.9 MG/DL (8.3-10.6); CARBON DIOXIDE LEVEL 30 MMOL/L (20-31); CHLORIDE LEVEL 94 MMOL/L (98-107); CHOLESTEROL LEVEL 67 MG/DL (<200); CHOLESTEROL RISK RATIO 2.53 (<5); CREATININE FOR GFR 3.79 MG/DL (0.55-1.30); GLOMERULAR FILTRATION RATE 12.5 (>39); GLUCOSE, FASTING 75 MG/DL (74-106); HDL CHOLESTEROL 26.4 MG/DL (>40); NON-HDL-C 40.6 MG/DL; POTASSIUM SERUM 4.4 MMOL/L (3.5-5.1); SODIUM LEVEL 132 MMOL/L (136-145); TOTAL PROTEIN 6.9 G/DL (5.7-8.2); TRIGLYCERIDES LEVEL 48 MG/DL (<150)
[2024-02-29 14:17] LABS: TOTAL 25(OH) VITAMIN D 88.4 NG/ML (20.0-100.0)
[2024-02-29 14:18] LABS: FREE T4 0.99 NG/DL (0.89-1.76); THYROID STIMULATING HORMONE 7.773 uIU/ML (0.55-4.78)
[2024-02-29 14:20] LABS: VITAMIN B12 LEVEL > 2000 PG/ML (211-911)
[2024-02-29 14:32] LABS: HEMOGLOBIN A1c 7.8 % (4.0-6.0)
== END ==
LOC: M PLALAB 08:05
PROVIDERS: ATTEND Internal Medicine Hematology
DX: E11.3299 Type 2 diabetes mellitus with mild nonproliferative diabetic retinopathy without macular edema, unspecified eye (principal); D63.1 Anemia in chronic kidney disease; N18.9 Chronic kidney disease, unspecified; Z79.899 Other long term (current) drug therapy

== ENCOUNTER 2024-03-14 10:11 | Inpatient (IN) | payer MEDICARE, OTHER ==
[~2024-03-14] VITALS: Ht 170.2 cm; Wt 92.1 kg
[~2024-03-14 10:11] MED LIST changes: +ONDA-282 PO; -ONDA4TAB6 PO
[2024-03-14] MEDS ORDERED: ISOVUE-370 76% 100ML VIAL As Ordered ONE (10:59)
[2024-03-14 11:28] LABS: CK-MB VALUE MASS 2.3 NG/ML (<3.6)
[2024-03-14 11:29] LABS: C REACTIVE PROTEIN QUANTITATIV 1.5 MG/DL (<1.0)
[2024-03-14 11:32] LABS: THYROID STIMULATING HORMONE 8.375 uIU/ML (0.55-4.78)
[2024-03-14 11:33] LABS: FREE T4 0.93 NG/DL (0.89-1.76)
[2024-03-14 11:36] LABS: PROCALCITONIN 0.23 ng/ml
[2024-03-14 11:38] LABS: BASO % 0.4 % (0.0-1.0); EOS % 0.2 % (0.0-3.0); HEMATOCRIT 35.6 % (36.0-47.0); HEMOGLOBIN 11.8 g/dl (12.0-15.5); LYMPH # 0.7 10^3/uL (1.5-5.0); LYMPH % 8.3 % (24.0-44.0); MEAN CORPUSCULAR HGB CONC 33.1 g/dl (32.0-36.5); MEAN CORPUSCULAR VOLUME 105.6 fl (80.0-96.0); MONO # 0.7 10^3/uL (0.0-0.8); MONO % 8.5 % (2.0-8.0); NEUTROPHILS % 82.2 % (36.0-66.0); PLATELET COUNT, AUTOMATED 160 10^3/uL (150-450); RED BLOOD COUNT 3.37 10^6/uL (4.00-5.40); WHITE BLOOD COUNT 8.5 10^3/uL (4.0-10.0)
[2024-03-14 11:39] LABS: ALBUMIN 3.9 G/DL (3.2-5.2); BILIRUBIN,DIRECT 0.6 MG/DL (<0.4); BILIRUBIN,TOTAL 0.9 MG/DL (0.3-1.2); CALCIUM LEVEL 7.1 MG/DL (8.3-10.6); CREATININE FOR GFR 3.74 MG/DL (0.55-1.30); GLOMERULAR FILTRATION RATE 12.7 (>39); MB/CK RELATIVE INDEX 1.23 (< OR =4); POTASSIUM SERUM 3.9 MMOL/L (3.5-5.1); TOTAL PROTEIN 7.4 G/DL (5.7-8.2)
[2024-03-14 11:58] LABS: INR 1.17; PARTIAL THROMBOPLASTIN TIME 31.1 SECONDS (24.8-34.2); PROTHROMBIN TIME 14.6 SECONDS (12.5-14.5)
[2024-03-14] MEDS ORDERED: HEPARIN 1,000UNITS/ML 10ML VIAL (FOR RADIOLOGY & DIALYSIS ONLY) XX SCH (12:10)
[2024-03-14] MEDS ORDERED: SODIUM CHLORIDE 0.9% 1000ML IV PRN (12:10)
[2024-03-14] MEDS ORDERED: LIDOCAINE 1% SDV 5ML VIAL SC PRN (12:10)
[2024-03-14] MEDS ORDERED: HEPARIN 1,000UNITS/ML 10ML VIAL (FOR RADIOLOGY & DIALYSIS ONLY) IV PRN (12:10)
[2024-03-14 12:18] LABS: CK-MB VALUE MASS 2.1 NG/ML (<3.6)
[2024-03-14 12:21] LABS: MB/CK RELATIVE INDEX 1.2 (< OR =4)
[2024-03-14] MEDS ORDERED: CEPH250T PO (14:28)
[2024-03-14] MEDS ORDERED: DIVA250T67 PO (14:28)
[2024-03-14] MEDS ORDERED: HOME MED LIST COMPLETE! XX SCH (14:30)
[2024-03-14] MEDS ORDERED: ALBUTEROL 90 MCG/ACT 8GM HFA INHALER INH PRN (14:55)
[2024-03-14] MEDS ORDERED: amLODIPine 5 MG TAB PO PRN (14:55)
[2024-03-14 15:20] VITALS: BP 127/81; TEMP 97; O2SAT 97
[2024-03-14] MEDS ORDERED: GLUCOSE 4 GM CHEW PO PRN (15:35)
[2024-03-14] MEDS ORDERED: DEXTROSE 50% 50ML SYRINGE IV PRN (15:35)
[2024-03-14] MEDS ORDERED: GLUCAGON INJ 1MG VIAL SC PRN (15:35)
[2024-03-14] MEDS: INSULIN LISPRO (NovoLOG) PER UNIT SC SCH ×2 (17:30→21:00)
[2024-03-14] MEDS: VITAMIN D 1,000 INTERNATIONAL UNITS TABLET PO SCH (20:58)
[2024-03-14] MEDS: OYSTER SHELL CALCIUM 500 MG TAB PO SCH (20:58)
[2024-03-14] MEDS: ASCORBIC ACID 500 MG TAB PO SCH (20:59)
[2024-03-14] MEDS: SENNA 8.6 MG TAB (SENOKOT) PO PRN (20:59)
[2024-03-14] MEDS ORDERED: DIVALPROEX 250MG TAB PO SCH (21:00)
[2024-03-14] MEDS: ATORVASTATIN 20 MG TAB PO SCH (21:02)
[2024-03-14] MEDS: MAGNESIUM GLUCONATE 500 MG TAB PO SCH (21:02)
[2024-03-14] MEDS: CEPHALEXIN 250MG CAPSULE PO SCH (21:04)
[2024-03-14] MEDS: PERCOCET 5MG/325MG TAB PO SCH (21:04)
[2024-03-14] MEDS: rOPINIRole 2MG TAB PO SCH (21:04)
[2024-03-14 21:47] VITALS: BP 111/61; TEMP 98.1; O2SAT 96
[2024-03-14] MEDS: HEPARIN SOD (PORCINE) 5000UNITS/ML 1ML VIAL/SYRINGE SC SCH (21:56)
[2024-03-15 01:05] VITALS: BP 124/77; TEMP 98.1; O2SAT 98
[2024-03-15] MEDS: ONDANSETRON 4MG ORAL DISINTEGRATING TAB PO PRN (01:10)
[2024-03-15] MEDS: ACETAMINOPHEN TAB 650MG DOSE (2X325MG) PO PRN (01:10)
[2024-03-15 04:16] VITALS: BP 115/58; TEMP 97.5; O2SAT 95
[2024-03-15] MEDS: LEVOTHYROXINE 125MCG TABLET (0.125MG) PO SCH (05:36)
[2024-03-15] MEDS ORDERED: SODIUM CHLORIDE 0.9% 1000ML IV PRN (06:00)
[2024-03-15] MEDS ORDERED: LIDOCAINE 1% SDV 5ML VIAL SC PRN (06:00)
[2024-03-15] MEDS ORDERED: HEPARIN 1,000UNITS/ML 10ML VIAL (FOR RADIOLOGY & DIALYSIS ONLY) XX SCH (06:00)
[2024-03-15] MEDS ORDERED: HEPARIN 1,000UNITS/ML 10ML VIAL (FOR RADIOLOGY & DIALYSIS ONLY) IV PRN (06:00)
[2024-03-15] MEDS: METOCLOPRAMIDE 5 MG TAB PO SCH (06:25)
[2024-03-15] MEDS: METOPROLOL SUCC *XL* 25MG TAB (TopROL *XL*) PO SCH (06:31)
[2024-03-15 06:44] LABS: HEMATOCRIT 32.1 % (36.0-47.0); HEMOGLOBIN 10.7 g/dl (12.0-15.5); MEAN CORPUSCULAR HEMOGLOBIN 35.2 pg (27.0-33.0); MEAN CORPUSCULAR HGB CONC 33.3 g/dl (32.0-36.5); MEAN CORPUSCULAR VOLUME 105.6 fl (80.0-96.0); PLATELET COUNT, AUTOMATED 143 10^3/uL (150-450); RED BLOOD COUNT 3.04 10^6/uL (4.00-5.40); WHITE BLOOD COUNT 7.4 10^3/uL (4.0-10.0)
[2024-03-15 07:08] LABS: ALBUMIN 3.7 G/DL (3.2-5.2); BILIRUBIN,TOTAL 0.9 MG/DL (0.3-1.2); CALCIUM LEVEL 7.1 MG/DL (8.3-10.6); CREATININE FOR GFR 3.18 MG/DL (0.55-1.30); GLOMERULAR FILTRATION RATE 15.3 (>39); POTASSIUM SERUM 4.4 MMOL/L (3.5-5.1); TOTAL PROTEIN 6.7 G/DL (5.7-8.2)
[2024-03-15] MEDS: ASPIRIN 81MG ENTERIC TABLET PO SCH (07:11)
[2024-03-15] MEDS: LEVEMIR (INSULIN DETEMIR) 1 UNITS/0.01ML SC SCH (07:12)
[2024-03-15 12:42] VITALS: BP 136/56; TEMP 97.5; O2SAT 95
[2024-03-15] MEDS: CALCIUM ACETATE 667MG GELCAP PO SCH (13:09)
[2024-03-15] MEDS: CALCIUM GLUCONATE 1,000 MG in D5W MINI-BAG PLUS 100 ML IV ONE (13:10)
[2024-03-15] MEDS: DOXYCYCLINE HYCLATE 100MG TABLET PO SCH (14:58)
[2024-03-15] MEDS: diphenhydrAMINE 25MG CAP PO PRN (15:39)
[2024-03-15 19:43] VITALS: BP 126/60; TEMP 98.6; O2SAT 93
[2024-03-16 01:07] VITALS: BP 115/61; TEMP 98.1; O2SAT 95
[2024-03-16] MEDS: TAMSULOSIN 0.4 MG CAP PO ONE (02:20)
[2024-03-16 05:15] VITALS: BP 129/81; TEMP 98.1; O2SAT 90
[2024-03-16] MEDS ORDERED: SODIUM CHLORIDE 0.9% 1000ML IV PRN (06:00)
[2024-03-16] MEDS ORDERED: HEPARIN 1,000UNITS/ML 10ML VIAL (FOR RADIOLOGY & DIALYSIS ONLY) IV PRN (06:00)
[2024-03-16] MEDS: PREPARATION H OINTMENT (HEMORRHOID) TOP PRN (06:02)
[2024-03-16 08:46] LABS: HEMATOCRIT 29.3 % (36.0-47.0); HEMOGLOBIN 9.9 g/dl (12.0-15.5); MEAN CORPUSCULAR HEMOGLOBIN 35.5 pg (27.0-33.0); MEAN CORPUSCULAR HGB CONC 33.8 g/dl (32.0-36.5); PLATELET COUNT, AUTOMATED 145 10^3/uL (150-450); RED BLOOD COUNT 2.79 10^6/uL (4.00-5.40); WHITE BLOOD COUNT 6.7 10^3/uL (4.0-10.0)
[2024-03-16 09:16] LABS: ALBUMIN 3.5 G/DL (3.2-5.2); BILIRUBIN,TOTAL 0.9 MG/DL (0.3-1.2); CALCIUM LEVEL 7.1 MG/DL (8.3-10.6); POTASSIUM SERUM 4.1 MMOL/L (3.5-5.1); TOTAL PROTEIN 6.4 G/DL (5.7-8.2)
[2024-03-16] MEDS: HEPARIN 1,000UNITS/ML 10ML VIAL (FOR RADIOLOGY & DIALYSIS ONLY) XX SCH (10:13)
[2024-03-16] MEDS: LIDOCAINE 1% SDV 5ML VIAL SC PRN (10:14)
[2024-03-16 12:30] VITALS: BP 140/66; TEMP 97.5; O2SAT 84
[2024-03-16 12:43] LABS: CREATININE FOR GFR 2.94 MG/DL (0.55-1.30); GLOMERULAR FILTRATION RATE 16.7 (>39)
[2024-03-16 15:26] VITALS: BP 113/66
[2024-03-16] MEDS: FUROSEMIDE 100MG/10ML VIAL IV ONE (15:30)
[2024-03-16 20:00] VITALS: BP 109/60; TEMP 98.2; O2SAT 94
[2024-03-17 00:02] VITALS: BP 113/63; TEMP 97.9; O2SAT 94
[2024-03-17 04:00] VITALS: BP 110/62; TEMP 97.5; O2SAT 94
[2024-03-17] MEDS ORDERED: SODIUM CHLORIDE 0.9% 1000ML IV PRN (04:15)
[2024-03-17] MEDS ORDERED: HEPARIN 1,000UNITS/ML 10ML VIAL (FOR RADIOLOGY & DIALYSIS ONLY) XX SCH (04:15)
[2024-03-17 05:46] LABS: HEMATOCRIT 28.8 % (36.0-47.0); HEMOGLOBIN 9.4 g/dl (12.0-15.5); MEAN CORPUSCULAR HEMOGLOBIN 34.8 pg (27.0-33.0); MEAN CORPUSCULAR HGB CONC 32.6 g/dl (32.0-36.5); MEAN CORPUSCULAR VOLUME 106.7 fl (80.0-96.0); PLATELET COUNT, AUTOMATED 135 10^3/uL (150-450); WHITE BLOOD COUNT 8.2 10^3/uL (4.0-10.0)
[2024-03-17 06:14] LABS: ALBUMIN 3.4 G/DL (3.2-5.2); CALCIUM LEVEL 7.6 MG/DL (8.3-10.6); CREATININE FOR GFR 2.66 MG/DL (0.55-1.30); GLOMERULAR FILTRATION RATE 18.8 (>39); POTASSIUM SERUM 4.1 MMOL/L (3.5-5.1); TOTAL PROTEIN 6.2 G/DL (5.7-8.2)
[2024-03-17 06:18] VITALS: BP 110/62
[2024-03-17] MEDS: LIDOCAINE 1% SDV 5ML VIAL SC PRN (08:12)
[2024-03-17] MEDS: HEPARIN 1,000UNITS/ML 10ML VIAL (FOR RADIOLOGY & DIALYSIS ONLY) IV PRN (08:13)
[2024-03-17 12:30] VITALS: BP 131/68; TEMP 98.2; O2SAT 93
[2024-03-17] MEDS ORDERED: DOXY100T PO (13:38)
[2024-03-17] MEDS ORDERED: CALC1CAP PO (13:49)
[2024-03-17 15:36] LABS: CALCIUM LEVEL 8.8 MG/DL (8.3-10.6); CREATININE FOR GFR 1.77 MG/DL (0.55-1.30)
== END 2024-03-17 15:45 | disposition home or self-care (01) | DRG 640 ==
LOC: M ED 10:11 → M ED INP 13:55 → M MSPAV 15:29
PROVIDERS: ADMIT Internal Medicine; ATTEND Internal Medicine
DX: E87.1 Hypo-osmolality and hyponatremia (principal); N18.6 End stage renal disease; J18.9 Pneumonia, unspecified organism; I50.32 Chronic diastolic (congestive) heart failure; I13.2 Hypertensive heart and chronic kidney disease with heart failure and with stage 5 chronic kidney disease, or end stage renal disease; E87.70 Fluid overload, unspecified; I48.91 Unspecified atrial fibrillation; I35.0 Nonrheumatic aortic (valve) stenosis; I25.10 Atherosclerotic heart disease of native coronary artery without angina pectoris; G47.33 Obstructive sleep apnea (adult) (pediatric); E83.51 Hypocalcemia; Z99.2 Dependence on renal dialysis; D63.1 Anemia in chronic kidney disease; Z95.1 Presence of aortocoronary bypass graft; E78.5 Hyperlipidemia, unspecified; Z95.5 Presence of coronary angioplasty implant and graft; Z79.4 Long term (current) use of insulin; K21.9 Gastro-esophageal reflux disease without esophagitis; Z86.73 Personal history of transient ischemic attack (TIA), and cerebral infarction without residual deficits; E11.22 Type 2 diabetes mellitus with diabetic chronic kidney disease; I27.20 Pulmonary hypertension, unspecified; E03.9 Hypothyroidism, unspecified; E11.649 Type 2 diabetes mellitus with hypoglycemia without coma; Z88.2 Allergy status to sulfonamides; Z91.040 Latex allergy status; Z79.82 Long term (current) use of aspirin; Z79.899 Other long term (current) drug therapy; Z95.2 Presence of prosthetic heart valve

== ENCOUNTER 2024-06-03 19:25 | Emergency (ER) | payer MEDICARE, OTHER ==
[~2024-06-03] VITALS: Ht 170.2 cm; Wt 84.5 kg
[~2024-06-03 19:25] MED LIST changes: +B-12100010 PO; +C-101TAB3 PO; +CALC1CAP PO; +CEPH250T PO; +DIVA250T67 PO; +DOXY100T PO; +LEVO1TAB38 PO; +PROBCAP14 PO; +RA M500C PO; +SENN-187 PO; -SENN-83 PO; +VITA100T14 PO
[2024-06-03] MEDS: methocarbamoL 500 MG TAB PO ONE (20:00)
[2024-06-03] MEDS ORDERED: LIDO5DIS41 TD (21:28)
[2024-06-03] MEDS: LIDOCAINE 4% CREAM 5GM (LMX4) TOP ONE (21:36)
[2024-06-03 21:39] VITALS: BP 127/67; TEMP 97.6; O2SAT 97
== END 2024-06-03 21:41 | disposition home or self-care (01) ==
LOC: M ED 19:25
DX: M16.11 Unilateral primary osteoarthritis, right hip (principal); E11.9 Type 2 diabetes mellitus without complications; N18.4 Chronic kidney disease, stage 4 (severe); I10 Essential (primary) hypertension; K21.9 Gastro-esophageal reflux disease without esophagitis; Z90.89 Acquired absence of other organs; Z86.79 Personal history of other diseases of the circulatory system; Z88.2 Allergy status to sulfonamides; Z79.52 Long term (current) use of systemic steroids; Z79.82 Long term (current) use of aspirin; Z79.02 Long term (current) use of antithrombotics/antiplatelets; Z79.899 Other long term (current) drug therapy

== ENCOUNTER 2024-06-20 06:41 | Emergency (ER) | payer MEDICARE, OTHER ==
[~2024-06-20] VITALS: Ht 170.2 cm; Wt 98.2 kg
[~2024-06-20 06:41] MED LIST changes: +LIDO5DIS41 TD
[2024-06-20 06:42] VITALS: BP 127/60; TEMP 97; O2SAT 92
== END 2024-06-20 08:19 | disposition home or self-care (01) ==
LOC: M ED 06:41
DX: T82.838A Hemorrhage due to vascular prosthetic devices, implants and grafts, initial encounter (principal); E11.9 Type 2 diabetes mellitus without complications; I10 Essential (primary) hypertension; K21.9 Gastro-esophageal reflux disease without esophagitis; G47.33 Obstructive sleep apnea (adult) (pediatric); E78.5 Hyperlipidemia, unspecified; N18.4 Chronic kidney disease, stage 4 (severe); Z88.2 Allergy status to sulfonamides; Z79.52 Long term (current) use of systemic steroids; Z79.82 Long term (current) use of aspirin; Z79.02 Long term (current) use of antithrombotics/antiplatelets; Z79.899 Other long term (current) drug therapy

== ENCOUNTER → 2024-07-18 | Outpatient (REF) | payer MEDICARE, OTHER ==
[~2024-07-18] MED LIST changes: -DOXY-323 PO; +DOXY-441 PO
== END ==
LOC: M LAB REF 12:48
PROVIDERS: ATTEND Nurse Practitioner Family
DX: N39.0 Urinary tract infection, site not specified (principal)

== ENCOUNTER → 2024-07-24 | Outpatient (REF) | payer MEDICARE, OTHER ==
[2024-07-25 13:34] LABS: APPEARANCE, URINE CLOUDY (CLEAR); BACTERIA, URINE AUTO 1+ (NEGATIVE); BILIRUBIN, URINE AUTO NEGATIVE (NEGATIVE); BLOOD, URINE BLOOD NEGATIVE (NEGATIVE); COLOR, URINE AMBER (YELLOW); GLUCOSE, URINE (UA) AUTO NEGATIVE (NEGATIVE); KETONE, URINE AUTO TRACE mg/dL (NEGATIVE); LEUKOCYTE ESTERASE, URINE AUTO 3+ (NEGATIVE); NITRITE, URINE AUTO NEGATIVE (NEGATIVE); PROTEIN, URINE AUTO 1+ mg/dL (NEGATIVE); RBC, URINE AUTO 13 /HPF (0-3); SPECIFIC GRAVITY URINE AUTO 1.024 (1.002-1.035); SQUAMOUS EPITHELIAL CELL UR AU 9 /HPF (0-6); WBC, URINE AUTO 143 /HPF (0-3)
== END ==
LOC: M SMT 12:53
PROVIDERS: ATTEND Nurse Practitioner Family
DX: N39.0 Urinary tract infection, site not specified (principal)

== ENCOUNTER 2024-08-07 07:39 | Day surgery (SDC) | payer MEDICARE, OTHER ==
[~2024-08-07] VITALS: Ht 170.2 cm; Wt 90.6 kg
[~2024-08-07 07:39] MED LIST changes: +ISOS1TAB35 PO; +NS 250 ML IV ONE
[2024-08-07 11:13] VITALS: TEMP 97.2
[2024-08-07 11:50] VITALS: BP 106/51; O2SAT 95
== END 2024-08-07 12:36 | disposition home or self-care (01) ==
LOC: M OPP 07:39
PROVIDERS: ATTEND Surgery
DX: D12.2 Benign neoplasm of ascending colon (principal); D12.4 Benign neoplasm of descending colon; D12.3 Benign neoplasm of transverse colon; K64.9 Unspecified hemorrhoids; E11.40 Type 2 diabetes mellitus with diabetic neuropathy, unspecified; E03.9 Hypothyroidism, unspecified; I25.10 Atherosclerotic heart disease of native coronary artery without angina pectoris; I13.2 Hypertensive heart and chronic kidney disease with heart failure and with stage 5 chronic kidney disease, or end stage renal disease; E11.22 Type 2 diabetes mellitus with diabetic chronic kidney disease; I50.9 Heart failure, unspecified; N18.6 End stage renal disease; Z99.2 Dependence on renal dialysis; I48.91 Unspecified atrial fibrillation; Z95.5 Presence of coronary angioplasty implant and graft; E78.00 Pure hypercholesterolemia, unspecified; R56.9 Unspecified convulsions; Z79.899 Other long term (current) drug therapy; Z79.82 Long term (current) use of aspirin; Z79.890 Hormone replacement therapy; Z91.048 Other nonmedicinal substance allergy status; Z95.1 Presence of aortocoronary bypass graft; Z90.49 Acquired absence of other specified parts of digestive tract; G47.30 Sleep apnea, unspecified; Z88.2 Allergy status to sulfonamides; Z86.73 Personal history of transient ischemic attack (TIA), and cerebral infarction without residual deficits